=== PATIENT | female | born 2000 | race Caucasian/White ===

== ENCOUNTER 2024-12-08 22:36 | Emergency (ER) | payer OTHER, SELFPAY ==
--- OUTSIDE RECORDS SUMMARY | 2024-11-12 14:09 | XMS_ITS | Encounter Summary ---
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 (accession [id number]), 3617.62 mGy.cm (accession [id number]), 3617.62 mGy.cm (accession [id number]). Please note: The reported value represents the [...] Total DLP (Dose-Length Product): 3617.62 mGy.cm (accession [id number]),3617.62 mGy.cm (accession [id number]), 3617.62 mGy.cm (accession [id number]),3617.62 mGy.cm (accession [id number]). Please note: The reported valuerepresents the total [...] MD on 11/12/2024 3:37 PM Terri Johnson OPHTHALMIC SURGICAL ASSISTANT IMG CT PROCEDURES Final Re sult * [...] Total DLP (Dose-Length Product): 3617.62 mGy.cm (accession [id number]), 3617.62 mGy.cm (accession [id number]), 3617.62 mGy.cm (accession [id number]), 3617.62 mGy.cm (accession [id number]). Please note: The reported value represents the [...] Total DLP (Dose-Length Product): 3617.62 mGy.cm (accession [id number]),3617.62 mGy.cm (accession [id number]), 3617.62 mGy.cm (accession [id number]),3617.62 mGy.cm (accession [id number]). Please note: The reported valuerepresents the total [...] MD on 11/12/2024 3:37 PM Terri Johnson OPHTHALMIC SURGICAL ASSISTANT IMG CT PROCEDURES Final Re sult * [...] Total DLP (Dose-Length Product): 3617.62 mGy.cm (accession [id number]), 3617.62 mGy.cm (accession [id number]), 3617.62 mGy.cm (accession [id number]), 3617.62 mGy.cm (accession [id number]). Please note: The reported value represents the [...] Total DLP (Dose-Length Product): 3617.62 mGy.cm (accession [id number]),3617.62 mGy.cm (accession [id number]), 3617.62 mGy.cm (accession [id number]),3617.62 mGy.cm (accession [id number]). Please note: The reported valuerepresents the total [...] MD on 11/12/2024 3:37 PM Terri Johnson OPHTHALMIC SURGICAL ASSISTANT IMG CT PROCEDURES Final Re sult * CT Angio Head (11/12/2024 3:05 PM EDT) Anatomical Region Laterality Modality [place] Computed Tomogr aphy Impressions 11/12/2024 [...] Total DLP (Dose-Length Product): 3617.62 mGy.cm (accession [id number]), 3617.62 mGy.cm (accession [id number]), 3617.62 mGy.cm (accession [id number]), 3617.62 mGy.cm (accession [id number]). Please note: The reported value represents the [...] Total DLP (Dose-Length Product): 3617.62 mGy.cm (accession [id number]),3617.62 mGy.cm (accession [id number]), 3617.62 mGy.cm (accession [id number]),3617.62 mGy.cm (accession [id number]). Please note: The reported valuerepresents the total [...] MD on 11/12/2024 3:37 PM Terri Johnson OPHTHALMIC SURGICAL ASSISTANT IMG CT PROCEDURES Final Re sult * [...] Hold for add-ons 11/12/2024 5:01 PM EDT [facility] Comment:Auto resulted. Blood Venous blood specimen / Unknown 11/12/2024 2:39 PM EDT 11/12/2024 2:44 PM EDT us Jose L Marin MD LAB BLOOD ORDERABLES Final Result [facility] [address] [place] [address] * Gold Top (11/12/2024 2:39 PM EDT) Extra Hold for add-ons 11/12/2024 5:01 PM EDT [facility] Comment:Auto resulted. Blood Venous blood specimen / Unknown 11/12/2024 2:39 PM EDT 11/12/2024 2:44 PM EDT us Jose L Marin MD LAB BLOOD ORDERABLES Final Result Performing Organization Address City/[facility]/ZIP Co de Phone Number [facility] [address] [place] [address] * Light Green Top (11/12/2024 2:39 PM EDT) Extra Hold for add-ons 11/12/2024 5:01 PM EDT [facility] Comment:Auto resulted. Blood Venous blood specimen / Unknown 11/12/2024 2:39 PM EDT 11/12/2024 2:44 PM EDT us Jose L Marin MD LAB BLOOD ORDERABLES Final Result Performing Organization Address City/[facility]/ZIP Co de Phone Number [facility] [address] [place] [address] * Type and Screen (11/12/2024 2:39 PM [...] ORDERA BLES Final Result Performing Organization Address City/[facility]/ZIP Co de Phone Number BLOOD BANK [address] [place] [address], [place] * TEG Global Hemostasis with Lysis (11/12/2024 2:39 PM EDT) R, Lysis 6.2 4.6 - 9.1 min 11/12/2024 3:53 PM EDT [facility] MA, Rapid, Lysis 61.6 52.0 - 70.0 mm 11/12/2024 3:53 PM EDT [facility] MA, Fibrinogen, Lysis 16.8 15.0 - 32.0 mm 11/12/2024 3:53 PM EDT [facility] LY30 0.9 0.0 - 2.6 % 11/12/2024 3:53 PM EDT [facility] Blood Venous blood specimen / Unknown Venipuncture / Unknown 11/12/2024 2:39 PM EDT 11/12/2024 2:54 PM EDT Jose L Marin MD LAB BLOOD ORDERABLES Final Result [facility] [address] [place] [address] * Test Qualitative Plasma (11/12/2024 2:39 PM EDT) Test Negative Negative 11/12/2024 3:21 PM EDT [facility] Blood Venous blood specimen / Unknown Venipuncture / Unknown 11/12/2024 2:39 PM EDT 11/12/2024 2:43 PM EDT Narrative [facility] - 11/12/2024 3:21 PM EDT Reference Range: Males and non- females: Negative. Jose L Marin MD LAB BLOOD ORDERABLES Final Result [facility] [address] [place] [address] * Ethyl Alcohol Plasma (11/12/2024 2:39 PM EDT) Ethanol Plasma <10 <10 mg/dL 11/12/2024 3:11 PM EDT [facility] Blood Venous blood specimen / Unknown Venipuncture / Unknown 11/12/2024 2:39 PM EDT 11/12/2024 2:[address] [facility] - 11/12/2024 3:11 PM EDT Enzymatic Assay: Performed on Valerie Lino. Jose L Marin MD LAB BLOOD ORDERABLES Final Result Performing Organization Address City/[facility]/[place] [address] * APTT (PTT) (11/12/2024 2:39 PM EDT) aPTT 25 25 - 35 sec 11/12/2024 3:16 PM EDT [facility] Blood Venous blood specimen / Unknown Venipuncture / Unknown 11/12/2024 2:39 PM EDT 11/12/2024 2:43 PM EDT Jose L Marin MD LAB BLOOD ORDERABLES Final Result Performing Organization Address City/[facility]/ZIP Co de Phone Number [facility] [address] [place] [address] * PT-INR (11/12/2024 2:39 PM EDT) Prothrombin Time 13.8 12.0 - 14.3 sec 11/12/2024 3:15 PM EDT [facility] INR 1.1 0.9 - 1.1 11/12/2024 3:15 PM EDT [facility] Blood Venous blood specimen / Unknown Venipuncture / Unknown 11/12/2024 2:39 PM EDT 11/12/2024 2:43 PM EDT Narrative [facility] - 11/12/2024 3:15 PM EDT OPTIMAL INR RANGES FOR PATIENT ON ORAL ANTICOAGULANT THERAPY Prevention of venous thromboembolism INR 2.0 to 3.0 In patients with heart disease: Atrial fibrillation INR 2.0 to 3.0 Valvular heart disease INR 2.0 to 3.0 Tissue heart valves INR 2.0 to 3.0 Mechanical prosthetic valves INR 2.5 to 3.5 Prevention of recurrent [place] INR 2.5 to 3.5 us Jose L Marin MD LAB BLOOD ORDERABLES Final Result [facility] [address] [place] [address] * (ABNORMAL) CBC w/o diff (11/12/2024 2:39 PM EDT) [facility] WBC Count 7.23 3.70 - 10.30 10*3/uL LAB HEMATOLOGY METHOD 11/12/2024 2:46 PM EDT [facility] RBC Count 4.67 3.90 - 5.20 10*6/uL LAB HEMATOLOGY METHOD 11/12/2024 2:46 PM EDT [facility] HGB 14.5 11.2 - 15.7 g/dL LAB HEMATOLOGY METHOD 11/12/2024 2:46 PM EDT [facility] HCT 40.1 34.0 - 45.0 % LAB HEMATOLOGY METHOD 11/12/2024 2:46 PM EDT [facility] Platelet Count 267 155 - 369 10*3/uL LAB HEMATOLOGY METHOD 11/12/2024 2:46 PM EDT [facility] MCV 86 79 - 98 fL LAB HEMATOLOGY METHOD 11/12/2024 2:46 PM EDT [facility] MCH 31.0 26.0 - 32.0 pg LAB HEMATOLOGY METHOD 11/12/2024 2:46 PM EDT [facility] MCHC 36.2(H) 30.7 - 35.5 g/dL LAB HEMATOLOGY METHOD 11/12/2024 2:46 PM EDT [facility] RDW 11.9 11.5 - 14.5 % LAB HEMATOLOGY METHOD 11/12/2024 2:46 PM EDT [facility] MPV 10.3 8.8 - 12.5 fL LAB HEMATOLOGY METHOD 11/12/2024 2:46 PM EDT [facility] nRBC 0.0 <=0.0 per 100 WBCs LAB HEMATOLOGY METHOD 11/12/2024 2:46 PM EDT [facility] Blood Venous blood specimen / Unknown Venipuncture / Unknown 11/12/2024 2:39 PM EDT 11/12/2024 2:43 PM EDT us Jose L Marin MD LAB BLOOD ORDERABLES Final Result [facility] [address] [place] [address] * (ABNORMAL) CMP (11/12/2024 2:39 PM EDT) Glucose, Plasma 110(H) 74 - 99 mg/dL 11/12/2024 3:21 PM EDT [facility] BUN, Plasma 12 7 - 21 mg/dL 11/12/2024 3:21 PM EDT [facility] Creatinine, Plasma 0.80 0.60 - 1.10 mg/dL 11/12/2024 3:21 PM EDT [facility] BUN/Creatinine Ratio 15 11/12/2024 3:21 PM EDT [facility] Sodium, Plasma 138 136 - 145 mmol/L 11/12/2024 3:21 PM EDT [facility] Potassium, Plasma 3.1(L) 3.6 - 4.9 mmol/L 11/12/2024 3:21 PM EDT [facility] Chloride, Plasma 105 97 - 107 mmol/L 11/12/2024 3:21 PM EDT [facility] CO2, Plasma 15(L) 22 - 29 mmol/L 11/12/2024 3:21 PM EDT [facility] Anion Gap 18(H) 6 - 16 mmol/L 11/12/2024 3:21 PM EDT [facility] Total Calcium, Plasma 9.1 8.9 - 10.2 mg/dL 11/12/2024 3:21 PM EDT [facility] Total Protein 6.9 6.3 - 7.9 g/dL 11/12/2024 3:21 PM EDT [facility] Albumin, Plasma 4.2 3.5 - 5.2 g/dL 11/12/2024 3:21 PM EDT [facility] AST, Plasma 24 10 - 35 U/L 11/12/2024 3:21 PM EDT [facility] ALT, Plasma 14 10 - 35 U/L 11/12/2024 3:21 PM EDT [facility] Alkaline Phosphatase, Plasma 59 35 - 104 U/L 11/12/2024 3:21 PM EDT [facility] Total Bilirubin, Plasma 0.2 0.2 - 1.1 mg/dL 11/12/2024 3:21 PM EDT [facility] eGFRcr 105.7 mL/min/1.7 3m*2 11/12/2024 3:21 PM EDT [facility] Comment:Reported eGFRcr in m L/min/1.73m2 is based the CKD-EPI 2020 equation that does not use a race coefficient. Blood Venous blood specimen / Unknown Venipuncture / Unknown 11/12/2024 2:39 PM EDT 11/12/2024 2:43 PM EDT us Jose L Marin MD LAB BLOOD ORDERABLES Final Result [facility] [address] [place] [address] * (ABNORMAL) Trauma shock panel blood gas (11/12/2024 2:39 PM EDT) pH, Venous 7.50(H) 7.32 - 7.43 LAB HEMATOLOGY METHOD 11/12/2024 2:44 PM EDT [facility] Bicarbonate, Calculated, Venous 19(L) 22 - 26 mmol/L LAB HEMATOLOGY METHOD 11/12/2024 2:44 PM EDT [facility] Base Excess, Venous -2.4(L) -2.0 - 3.0 mmol/L LAB HEMATOLOGY METHOD 11/12/2024 2:44 PM EDT [facility] Lactate, Venous, Whole Blood 5.2(H) 0.5 - 2.2 mmol/L LAB HEMATOLOGY METHOD 11/12/2024 2:44 PM EDT [facility] Blood Venous blood specimen / Unknown Venipuncture / Unknown 11/12/2024 2:39 PM EDT 11/12/2024 2:43 PM EDT us Jose L Marin MD LAB BLOOD ORDERABLES Final Result Performing Organization Address City/State/[facility] Co de Phone Number [facility] [address] [place] [address] documented in this encounter Visit Diagnoses Diagnosis [...] at 1540, Until 11/13/24 at 0743, Routine New Bag 11/12/2024 5:33 PM EDT 75 mL/ hr 75 mL/hr meclizine (Antivert) tablet 25 mg 25 mg, Oral, 3 times daily PRN, Starting on 11/14/24 at 0935, Until Mon /11/25 at 1459, Routine, dizziness methocarbamol (Robaxin) tablet 1,000 mg 1,000 mg, Oral, 4 times daily, First dose (after last modification) on 11/13/24 at 1800, Until Discontinued, Routine Given 11/14/2024 9:44 AM EDT 1,000 mg Given 11/13/2024 9:37 PM EDT 1,000 mg Given 11/13/2024 5:00 PM EDT 1,000 mg methocarbamol (Robaxin) tablet 500 mg 500 mg, Oral, 4 times daily PRN, Starting on 11/12/24 at 1513, Until Imbler 11/13/24 at 0743, Routine, muscle spasms Given 11/13/2024 12:56 AM EDT 500 mg Given 11/12/2024 7:51 PM EDT 500 mg methocarbamol (Robaxin) tablet 500 mg 500 mg, Oral, 4 times daily, First dose (after last modification) on Imbler 11/13/24 at 0900, Until Discontinued, Routine Given 11/13/2024 3:00 PM EDT 500 mg Given 11/13/2024 9:02 AM EDT 500 mg metoclopramide (Reglan) injection 10 mg 10 mg, Intravenous, Every 6 hours PRN, Starting on 11/12/24 at 2017, Until Thu11/14/24 at 1459, Routine, nausea, vomiting Given 11/12/2024 8:27 PM EDT 1 0 mg metoclopramide (Reglan) tablet 10 mg 10 mg, Oral, Every 6 hours PRN, Starting on 11/12/24 at 2017, Until Thu11/14/24 at 1459, Routine, nausea, vomiting morphine PF [...] PRN, Starting on 11/13/24 at 1638, Until Thu11/13/24 at 1926, Routine, severe pain Given 11/13/2024 4:57 PM EDT 5 mg oxyCODONE (Roxicodone) immediate release tablet 5 mg 5 mg, Oral, Every 4 hours PRN, Starting on 11/13/24 at 1924, Until Thu11/14/24 at 1459, Routine, moderate pain polyethylene glycol [...] Caceres RN) 0944 (Given - Provider: Jo Quick RN)1400 (Canceled Entry - Provider: Automatic Discharge Provider [...] Routine 1705 (Given - Provider: Franklyn Vazquez, RN) polyethylene glycol (Miralax) packet 17 g 17 g, Oral, Daily, First dose on 11/13/24 at 0900, Until Discontinued, Routine 0902 (Given - Provider: Fartun Goodrich, CARSON) 0945 (Not Given - Provider: Jo Quick [...] Discontinued, Routine 2004 (Given - Provider: Jarvis Caceres RN) sodium chloride 0.9 % flush 10 mL(Linked [...] 1733 (New Bag - Provider: Franklyn Vazquez, CARSON) PRN Medication Order 11/12/2024 11/13/2024 11/14/2024 albuterol [...] Maldonado RN)1440 (Canceled Entry - Provider: Sharron Epstein RN - Comment: Automatically documented as Canceled [...] spasms 1951 (Given - Provider: Padmini Pinzon) 0056 (Given - Provider: Padmini Pinzon) metoclopramide (Reglan) injection 10 mg(Linked Group 2) 10 mg, Intravenous, Every 6 hours PRN, Starting on 11/12/24 at 2017, Until Thu11/14/24 at 1459, Routine, nausea, vomiting 2026 (Given - Provider: Padmini Pinzon) metoclopramide (Reglan) tablet 10 mg(Linked Group 2) 10 mg, Oral, Every 6 hours PRN, Starting on 11/12/24 at 2017, Until Thu11/14/24 at 1459, Routine, nausea, vomiting 2026 (See Alternative - Provider: Padmini Pinzon) ondansetron (Zofran) 4 MG/5ML solution 4 mg(Linked Group 3) 4 mg, Oral, Every 6 hours PRN, Starting on 11/12/24 at 1513, Until Thu11/14/24 at 1459, Routine, nausea, vomiting 1705 (See Alternative - Provider: Franklyn Vazquez, CARSON) 0750 (See Alternative - Provider: Fartun Goodrich RN)2138 (See Alternative - Provider: Jarvis Caceres RN) 0959 (See Alternative - Provider: Jo Quick RN) ondansetron (Zofran) injection 4 mg(Linked Group 3) 4 mg, Intravenous, Every 6 hours PRN, Starting on 11/12/24 at 1513, Until 11/14/24 at 1459, Routine, vomiting, nausea 1705 (Given - Provider: Franklyn Vazquez RN) 0750 (Given - Provider: Fartun Goodrich, CARSON)2138 (See Alternative - Provider: Jarvis Caceres RN) 0959 (See Alternative - Provider: Jo Quick RN) ondansetron ODT (Zofran-ODT) disintegrating tablet 4 mg(Linked Group 3) 4 mg, Oral, Every 6 hours PRN, Starting on 11/12/24 at 1513, Until 11/14/24 at 1459, Routine, nausea, vomiting 1705 (See Alternative - Provider: Franklyn Vazquez RN) 0750 (See Alternative - Provider: Fartun Goodrich, CARSON)2138 (Given - Provider: Jarvis Caceres RN) 0959 (Given - Provider: Jo Quick RN) oxyCODONE (Roxicodone) immediate release tablet 10 mg(Linked [...] Until 11/14/24 at 1459, Routine, moderate pain sodium chloride [...] Until 11/14/24 at 1459, Routine, vomiting, nausea Or ondansetron (Zofran) 4 MG/5ML solution 4 mgJump to med 4 mg, Oral, Every 6 hours PRN, Starting on 11/12/24 at 1513, Until 11/14/24 at 1459, Routine, nausea, vomiting Group 4: oxyCODONE (Roxicodone) immediate release tablet 5 mgJump to med 5 mg, Oral, Every 4 hours PRN, Starting on 11/13/24 at 1924, Until 11/14/24 at 1459, Routine, moderate pain Or oxyCODONE (Roxicodone) immediate release tablet 10 mgJump to med 10 mg, Oral, Every 6 hours PRN, Starting on 11/13/24 at 1924, Until 11/14/24 at 1459, Routine, severe pain documented in this encounter Additional Health Concerns Assessment Noted Time PHQ-9 Depression Total Score: 10 024 9:54 AM EDT A fall risk assessment has been complete d for the patient 01/14/2024 10:05 AM EDT A Body Mass Index follow-up plan has been documented for the patient 11/14/2024 11:24 AM EDT documented as of this encounter Care Teams Feed Mill Manager Relationship Specialty Start Date End Date Pcp, Melinda [address] [place] [address] PCP - General Family Medicine 11/12/24 Nirmala Johnston APRN [address] [place] [address] 11/12/24 documented as of this encounter
[2024-12-08 22:37] VITALS: BP 119/70; PULSE 66; RESP 16; TEMP 36.5; O2SAT 100; BMI 25.4
[2024-12-08 22:45] VITALS: BP 114/70; PULSE 66; RESP 16; TEMP 36.5; O2SAT 100
[2024-12-08 22:46] VITALS: PULSE 66
--- NOTE | 2024-12-08 23:00 | XR_ITS ---
PROCEDURE INFORMATION: Exam: XR Chest Exam date and time: 12/08/2024 11:30 PM Age: 24 years old Clinical indication: Pain; Chest pressure; Additional info: Cp TECHNIQUE: Imaging protocol: Radiologic exam of the chest. Views: 1 view. COMPARISON: No relevant prior studies available. FINDINGS: Lungs: No focal consolidation. Pleural spaces: No pneumothorax. Heart/Mediastinum: Unremarkable cardiomediastinal silhouette. Bones/joints: No acute osseous findings. IMPRESSION: No focal consolidation.
--- NOTE | 2024-12-08 23:00 | CT_ITS ---
PROCEDURE INFORMATION: Exam: CT Head Without Contrast Exam date and time: 12/08/2024 11:35 PM Age: 24 years old Clinical indication: Pain; Headache; Additional info: MONTERROSO on anticoagulation TECHNIQUE: Imaging protocol: Computed tomography of the head without contrast. Radiation optimization: All CT scans at this facility use at least one of these dose optimization techniques: automated exposure control; mA and/or kV adjustment per patient size (includes targeted exams where dose is matched to clinical indication); or iterative reconstruction. COMPARISON: No relevant prior studies available. FINDINGS: Brain: No hemorrhage. No mass effect. Cerebral ventricles: No ventriculomegaly. Paranasal sinuses: No fluid levels. Mastoid air cells: Visualized mastoid air cells are well aerated. Bones: No acute fracture. Soft tissues: The visualized soft tissue is grossly unremarkable. IMPRESSION: No evidence of acute intracranial hemorrhage.
[2024-12-08 23:07] LABS: Hematocrit 43.2 % (37.0-47.0); Hemoglobin 15.2 g/dL (12.2-16.2); Immature Granulocytes % 0.2 %; Mean Corpuscular HGB Conc 35.2 g/dL (31.8-35.4); Mean Corpuscular Hemoglobin 30.8 pg (27.0-31.2); Mean Corpuscular Volume 87.4 fl (81-99); Nucleated Red Blood Cells % 0 %; Platelet Count 276 K/mm3 (142-424); Red Blood Count 4.94 M/mm3 (4.20-5.40); Red Cell Distribution Width-SD 38.5 fL; White Blood Count 9.9 K/mm3 (4.8-10.8)
[2024-12-08 23:14] LABS: Alanine Aminotransferase 18 U/L (12-78); Albumin Level 4.7 g/dl (3.5-5.0); Albumin/Globulin Ratio 1.7 (1.1-1.8); Alkaline Phosphatase 47 U/L (38-126); Anion Gap 16.2 mEq/L (5-15); Aspartate Amino Transferase 30 U/L (14-36); Bilirubin,Total 0.4 mg/dl (0.2-1.3); Blood Urea Nitrogen 12 mg/dl (7-17); Calcium 9.7 mg/dl (8.4-10.2); Carbon Dioxide 23 mmol/L (22.0-30.0); Chloride 104 mmol/L (98-107); Creatinine Clearance Estimated 100 mL/min (50-200); Creatinine,Serum 0.80 mg/dl (0.52-1.04); Estimated Glomerular Filt Rate 87 ml/min (>60); GFR (African American) 106 ML/MIN (>60); Globulin 2.8 g/dL (1.3-3.2); Glucose 76 mg/dl (74-100); Potassium 3.2 mmoL/L (3.5-5.1); Sodium 140 mmol/L (136-145); Total Protein,Serum 7.5 g/dl (6.3-8.2)
[2024-12-08 23:18] LABS: D-Dimer 0.31 ug/mL (0.0-0.5)
[2024-12-08 23:22] LABS: HCG Qualitative, Serum Negative (Negative)
[2024-12-08] MEDS: ACETAMINOPHEN 1,000MG/100ML VIAL 1000 MG IV (23:22)
[2024-12-08] MEDS: LACTATED RINGERS 1000ML 1,000 ML 999 ML IV (23:23)
[2024-12-08] MEDS: PROCHLORPERAZINE 10MG/2ML VIAL 5 MG IV (23:23)
[2024-12-08 23:27] LABS: Troponin I < 0.01 ng/ml (0.00-0.034)
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
[2024-12-08] MEDS: POTASSIUM CHLORIDE 20MEQ TAB 40 MEQ PO (23:45)
[2024-12-09 00:06] LABS: Magnesium 1.5 mg/dl (1.6-2.3)
[2024-12-09] MEDS: MAGNESIUM SULFATE IN WATER 2 GM/50 ML PIGGYBACK IV (00:31)
--- OUTSIDE RECORDS SUMMARY | 2024-12-09 01:00 | XMS_ITS | Encounter Summary ---
Author Organization [facility] Address [address] [place] [address] Care Team Providers Care Supervisor Stage Carpentry Name Role Phone Swathi Todd APRN Primary Care Provider [phone] Encounter Details Date Type Department Care Team (Late st Contact Info) Description 08/16/2024 Results Follow-Up [facility] [address] [place] [address] Leonidas Gomez MD [address] [place] [address] Social History Tobacco Use Types Packs/Day Years Used Date Smoking Tobacco: Never Passive Smoke Exposure: Never Smokeless Tobacco: Never Alcohol Use Standard Drinks/Week Comments Yes 5 (1 standard drink = 0.6 oz pur e alcohol) Abuse Screen Answer Date Recorded Feels Unsafe at Home or Work/School no 03/29/2023 Feels Threatened by Someone no 03/07 Does Anyone Try to Keep You From Having Contact with Others or Doing Things Outside Your Home? no 03/29/2023 Physical Signs of Abuse Present no 03/29/2023 PHQ-2 Answer Date Recorded Retired PHQ-9: Brief Depression Severity Measure Score 11 07/07/2023 Comments No Sex and Gender Information Value Date Recorded Sex Assigned at Not on file Legal Sex Female 7:25 PM EST Gender Identity Not on file Sexual Orientation Not on file documented as of this encounter Plan of Treatment Not on file documented as of this encounter Visit Diagnoses Not on filedocumented in this encounter Additional Health Concerns Assessment Noted Time PHQ-2 Depression Total Score: 3 07/07/19 24 4:00 PM EDT documented as of this encounter Care Teams Supervisor Stage Carpentry Relationship Specialty Start Date End Date Swathi Todd APRN [address] [place] [address] PCP - General Nurse Practitioner 07/21/24 documented as of this encounter
--- OUTSIDE RECORDS SUMMARY | 2024-12-09 01:00 | XMS_ITS | Encounter Summary ---
Author Organization Healthcare Address [address] [place] [address] Care Team Providers Care Zoology Technical Officer Name Role Phone Pcp, No Primary Care Provider Unavailabl e Nirmala Johnston LAB COORDINATOR Unavailable [phone] Encounter Details Date Type Department Care Team (Latest Contact Info) Description 11/13/2024 Travel Social History Tobacco Use Types Packs/Day Years Used Date Smoking Tobacco: Some Days Cigarettes Smokeless Tobacco: Never Alcohol Use Standard Drinks/Week Comments Never 0 [...] any time in the past 12 m [facility], were you homeless or living in a intermediate (including now)? No 11/14/2024 Utilities Answer Date [...] on file documented as of this encounter Functional Status * AUDIT-C Score Answer Date of Assessment Author 0 11/13/2024 3:36 AM Sudhir Kunz L * Question Answer Date of Assessment Author Q1: How often do you have a drink containing alcohol? Never 11/13/2024 3:36 AM Padmini Kunz Q2: How many drinks containing alcohol do you have on a typical day when you are drinking? Patient does not drink 11/13/2024 3:36 AM Padmini Kunz Q3: How often do you have six or more drinks on one occasion? Never 11/13/2024 3:36 AM EDT Padmini Pinzon * Calculated C-SSRS Risk Score (Lifetime/Recent) Answer Date of Assessment Author No Risk Indicated 11/13/2024 8:00 PM EDT Jarvis Donald RN * Question Answer Date of Assessment Author 1. Wish to be (Past 1 Month) No 025 8:00 PM EDT Jarvis Caceres RN 2. Non-Specific Active Suici segundo Thoughts (Past 1 Month) No 11/13/2024 8:00 PM EDT Jarad Caceres RN 6. Suicidal Behavior (Lifetime) No 8:00 PM EDT Jarvis Caceres RN documented as of this encounter Plan of [...] documented as of this encounter Care Teams Zoology Technical Officer Relationship Specialty Start Date End Date Pcp, No [address] [place] [address] PCP - General Family Medicine 11/12/24 Nirmala Johnston APRN [address] [place] [address] 11/12/24 documented as of this encounter
--- OUTSIDE RECORDS SUMMARY | 2024-12-09 01:00 | XMS_ITS | Encounter Summary ---
Author Organization Healthcare Address [address] [place] [address] Care Team Providers Care Fire Alarm Mechanic Name Role Phone Pcp, No Primary Care Provider Unavailabl e Nirmala Johnston NAVAL MARINE ENGINEER Unavailable [phone] Encounter Details Date Type Department Care Team (Latest Contact Info) Description 11/12/2024 Travel Social History Tobacco Use Types Packs/Day Years Used Date Smoking Tobacco: Never Assessed PHQ-2 Answer Date Recorded Patient Health Questionnaire-2 Score 6 12/17/2023 PHQ-9 Answer Date Recorded Patient Health Questionnaire-9 Score 10 12/17/2023 AUDIT-C Answer Date Recorded Q1: How often do you have a drink containing alcohol? Never 11/13/2024 Q2: How many drinks containi ng alcohol do you have on a typical day when you are drinking? Patient does not drink Q3: How often do you have si x or more drinks on one occasion? Never 11/13/2024 Comments No Sex and Gender Information Value Date Recorded Sex Assigned at Not on file Legal Sex Female 3:09 PM EST Gender Identity Female 12/02/2023 6:42 AM EDT Sexual Orientation Not on file documented as of this encounter Functional Status * Calculated C-SSRS Risk Score (Lifetime/Recent) Answer Date of Assessment Author No Risk Indicated 11/12/2024 8:00 PM EDT Kelly Pinzon * Question Answer Date of Assessment Author 1. Wish to be (Past 1 Month) No 025 8:00 PM EDT Padmini Pinzon 2. Non-Specific Active Suici segundo Thoughts (Past 1 Month) No 11/12/2024 8:00 PM EDT Padmini Pinzon 6. Suicidal Behavior (Lifetime) No 8:00 PM EDT Padmini Pinzon documented as of this encounter Plan of Treatment Not on file documented as of this encounter Visit Diagnoses Not on filedocumented in this encounter Additional Health Concerns Assessment Noted Time PHQ-9 Depression Total Score: 024 9:54 AM EDT A fall risk assessment has been complete d for the patient 01/14/2024 10:05 AM EDT A Body Mass Index follow-up plan has been documented for the patient 11/14/2024 11:24 AM EDT documented as of this encounter Care Teams Fire Alarm Mechanic Relationship Specialty Start Date End Date Pcp, No [address] [place] [address] PCP - General Family Medicine 11/12/24 Nirmala Johnston APRN [address] [place] [address] 11/12/24 documented as of this encounter
--- OUTSIDE RECORDS SUMMARY | 2024-12-09 01:00 | XMS_ITS | Clinical Summary ---
Author Organization [facility] Address [address] [place] [address] Care Team Providers Care Engine Specialist Name Role Phone Swathi Todd APRN Primary Care Provider [phone] Allergies Active Allergy Reactions Criticality Noted Date Comments Doxycycline Nausea And Vomiting 03/29/2023 Kiwi Extract Swelling High 01/15/2022 Lidocaine Palpitations Low 09/22/2023 Increased heart rate/BP via IV; intramuscular inj OK Medications * This document contains information received from the source organization and may not represent a complete record from that organization. colestipol (COLESTID) 1 g tablet Take 1 tablet by mouth 2 (Two) Times a Day Before Meals. Active ondansetron ODT (ZOFRAN-ODT) 4 MG disintegrating tablet TAKE 1 TABLET BY MOUTH NEEDED, ONCE DAILY FOR NAUSEA, 30 DAYS Active Levonorgestrel (MIRENA) 20 MCG/DAY intrauterine device IUD To be inserted one time by prescriber. Route intrauterine . Active hydrOXYzine (ATARAX) 25 MG tabletIndications:A nxiety Take 1 tablet by mouth 3 (Three) Times a Day As Needed for Anxiety. 60 tablet 4 Active albuterol sulfate HFA 108 (90 Base) MCG/ACT inhaler Inhale 2 puffs. 4 Active sertraline (ZOLOFT) 25 MG tablet Take 1 tablet by mouth Daily. 4 Active levonorgestrel-ethi nyl estradiol (AVIANE,ALESSE,LESS LIBRADO) 0.1-20 MG-MCG per tablet Take 1 tablet by mouth Daily. 28 tablet 12 5 08/16/19 26 Active Active Problems Problem Noted Date Diagnosed Date Encounter for preconception consultation 024 Immunizations Immunization Administration Dates Next Due COVID-19 (MODERNA) 1st,2nd,3 rd Dose Monovalent 05/02/2020,04/04/2020 DTaP 11/16/2003, 1,06/05/2000,03/18,01/17/2000 FluMist 2-49yrs (Nasal) 12/12/2013,12/31/2012, Fluzone (or Fluarix & Flulav al for VFC) >6mos 01/15/2022 Hep A, 2 Dose 07/24/2008,12/23/2007 Hep B / HiB 12/04/2000 Hepatitis B Adult/Adolescent IM 12/04/2000,01/16,1999 Hib (PRP-OMP) 03/18/2000,01/17/2000 IPV 11/16/2003, 1,03/18/2000,01/16 MMR 11/16/2003,03/08/2001 Meningococcal B,(Bexsero) 10/31/2017,09/26/2017 Meningococcal Conjugate 09/26/2017 PEDS-Pneumococcal Conjugate (PCV7) 03/08/2001, Tdap 01/15/2022,01/13/2011 Varicella 12/04/2000 Family History Medical History Relation Name Comments No Known Problems Brother 1 No Known Problems Brother 2 No Known Problems Brother 3 No Known Problems Father No Known Problems Mother No Known Problems Sister 1 No Known Problems Sister 2 No Known Problems Sister 3 Breast cancer Neg Hx Colon cancer Neg Hx Ovarian cancer Neg Hx Uterine cancer Neg Hx Relation Name Status Comments Brother 1 Alive Brother 2 Alive Brother 3 Alive Father Alive Mother Alive Sister 1 Alive Sister 2 Alive Sister 3 Alive Social History Tobacco Use Types Packs/Day Years Used Date Smoking Tobacco: Never Passive Smoke Exposure: Never Smokeless Tobacco: Never Tobacco Cessation:Counseling Given: Not Answered Alcohol Use Standard Drinks/Week Comments Yes 5 [...] on file Sexual Orientation Not on file Last Filed Vital Signs Vital Sign Reading Time Taken Comments Blood Pressure 104/70 08/15/2024 1:26 PM EDT Pulse 74 08/06/2023 2:32 PM EDT Temperature 36.8 C (98.2 F) 06/03/2023 10:01 AM EST Respiratory Rate 18 12/21/2023 1:08 PM EDT Oxygen Saturation 98% 06/03/2023 10:01 AM EST ra Inhaled Oxygen Concentration - - Weight 55.3 kg (122 lb) 08/15/2024 1:26 PM EDT Height 152.4 cm (5') 08/15/2024 1:26 PM EDT Body Mass Index 23.83 08/15/2024 1:26 PM EDT Plan of Treatment Health Maintenance Due Date Last Done Comments HPV VACCINES (1 - 3-dose series) 11/14/2014 ANNUAL PHYSICAL 05/28/2023 HEPATITIS C SCREENING 05/28/2023 COVID-19 Vaccine ( season) 2023 05/02/2020, 04/04/2020 INFLUENZA VACCINE 01/04/2025 01/15/2022, , 12/31/2012, Additional history exists Annual Gynecologic Pelvic and Breast Exam 08/16/2025 08/15/2024 PAP SMEAR 08/16/2027 08/15/2024 TDAP/TD VACCINES (3 - Td or Tdap) 01/16/2032 01/15/2022, 01/13/2011 Pneumococcal Vaccine 0-49 Aged Out 03/08/2001, 05/2000 No longer eligible based on patient's age to complete this topic CHLAMYDIA SCREENING Discontinued 08/15/2024 Procedures Procedure Name Priority Date/Time Associated Diagnosis Comments LIQUID-BASED PAP SMEAR WITH HPV GENOTYPING IF ASCUS, [facility] ([facility]) Routine 08/15/2024 2:16 PM EDT Pap test, as part of routine gynecological examination from Last 3 Months or Most Recently Relevant to Health Maintenance Results * LIQUID-BASED PAP SMEAR WITH HPV GENOTYPING IF ASCUS (SHEA,COR,MAD) (08/15/2024 2:16 PM EDT) Reference Lab Report [facility] [address] [place] [address] or [phone] Franko Arevalo M.D., Smearer PATIENT NAME LABORATORY NO. [id number] GONZALEZ [id number] AGE SEX SSN CLIENT REF # [id number] 24 2000 F [id number] [facility] LAMIN ALFARO REQUESTING M.D. [place] [address] SANDER AMBROSIO DATE COLLECTED DATE RECEIVED DATE REPORTED 08/15/2024 08/15/2024 08/16/2024 ThinPrep Pap with Hologic Genius Imaging DIAGNOSIS: Negative for intraepithelial lesion or malignancy Multiple factors can influence accuracy of Pap tests; therefore, screening at regular intervals is necessary for early cancer detection. COMMENT: Benign cellular changes associated with reactive/reparativ e changes are present. Professional interpretation rendered by Franko Arevalo M.D., F.C.A.P. at [facility], [place], [address] [place] [address]. SPECIMEN ADEQUACY: SATISFACTORY FOR EVALUATION Transformation zone is present. SOURCE OF SPECIMEN: CERVICAL SLIDES: 1 CLINICAL HISTORY: Pap test, as part of routine gynecological examination IUD check up Screening for STD (sexually transmitted disease) Chlamydia / Gonorrhea CHLAMYDIA TRACHOMATIS: Negative NEISSERIA GONORRHOEAE: Negative The Aptima Combo 2 assay is a target amplification nucleic acid probe test that utilizes target capture for the in vitro qualitative detection and differentiation of ribosomal RNA from Chlamydia trachomatis and Neisseria gonorrhoeae to aid in the diagnosis of chlamydial and gonococcal disease using the [place] system. VICE PRESIDENT RESIDENTIAL SOLAR SALES: ANIBAL CHRISTINE (ASCP) REVIEWED, DIAGNOSED AND ELECTRONICALLY SIGNED BY: Franko Arevalo M.D., F.C.A.P. CPT CODES: [id number], [id number], [id number], [id number] 08/16/2024 2:04 PM EDT [facility] ThinPrep Vial Cervix uteri structure / Unknown Collection / Unknown 08/15/2024 2:16 PM EDT 08/15/2024 2:16 PM EDT Sander Ambrosio MD PATHOLOGY/CYTOLOGY ORDER FRANSISCO Final Result [facility]
[address] [place] [address], from Last 3 Months or Most Recently Relevant to Health Maintenance Insurance [facility] [employer] [facility] PPO Member Subscriber Plan / Payer (Ef fective 2022-Present) Name:Cierra Gonzalez Relation to Subscriber:Self Name:EmigdioniloCierra Esteves Payer ID:[id number] (NAIC) Type:Not on file Address: [facility] [id number] [place] [id number] [facility] [employer] [facility] PPO Care Teams Engine Specialist Relationship Specialty Start Date End Date Swathi Todd APRN [address] [place] [address] PCP - General Nurse Practitioner 07/21/24
--- OUTSIDE RECORDS SUMMARY | 2024-12-09 01:01 | XMS_ITS | Clinical Summary ---
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 represents the [...] Total DLP (Dose-Length Product): 3617.62 mGy.cm (accession [id number]),3617.62 mGy.cm (accession [id number]), 3617.62 mGy.cm (accession [id number]),3617.62 mGy.cm (accession [id number]). Please note: The reported valuerepresents the total [...] Jones MD on 11/12/2024 3:37 PM Terri Gu LITIGATION DOCKET MANAGER IMG CT PROCEDURES Final Re sult * CT Face wo IV Contrast (11/12/2024 [...] Total DLP (Dose-Length Product): 3617.62 mGy.cm (accession [id number]), 3617.62 mGy.cm (accession [id number]), 3617.62 mGy.cm (accession [id number]), 3617.62 mGy.cm (accession [id number]). Please note: The reported value represents the [...] Total DLP (Dose-Length Product): 3617.62 mGy.cm (accession [id number]),3617.62 mGy.cm (accession [id number]), 3617.62 mGy.cm (accession [id number]),3617.62 mGy.cm (accession [id number]). Please note: The reported valuerepresents the total [...] Jones MD on 11/12/2024 3:37 PM Terri Gu APRN IMG CT PROCEDURES Final Re sult [...] Total DLP (Dose-Length Product): 3617.62 mGy.cm (accession [id number]), 3617.62 mGy.cm (accession [id number]), 3617.62 mGy.cm (accession [id number]), 3617.62 mGy.cm (accession [id number]). Please note: The reported value represents the [...] Total DLP (Dose-Length Product): 3617.62 mGy.cm (accession [id number]),3617.62 mGy.cm (accession [id number]), 3617.62 mGy.cm (accession [id number]),3617.62 mGy.cm (accession [id number]). Please note: The reported valuerepresents the total [...] Jones MD on 11/12/2024 3:37 PM Terri Gu LITIGATION DOCKET MANAGER IMG CT PROCEDURES Final Re sult * CT Angio Head (11/12/2024 3:05 PM EDT) Anatomical Region Laterality Modality [place] Computed Tomogr aphy Impressions 11/12/2024 [...] Total DLP (Dose-Length Product): 3617.62 mGy.cm (accession [id number]), 3617.62 mGy.cm (accession [id number]), 3617.62 mGy.cm (accession [id number]), 3617.62 mGy.cm (accession [id number]). Please note: The reported value represents the [...] Total DLP (Dose-Length Product): 3617.62 mGy.cm (accession [id number]),3617.62 mGy.cm (accession [id number]), 3617.62 mGy.cm (accession [id number]),3617.62 mGy.cm (accession [id number]). Please note: The reported valuerepresents the total [...] Jones MD on 11/12/2024 3:37 PM Terri Gu LITIGATION DOCKET MANAGER IMG CT PROCEDURES Final Re sult * [...] Jones MD on 11/12/2024 2:53 PM us Mac Marin MD IMG XR PROCEDURES Final Re [...] Elias Jones MD on 11/12/2024 2:53 PM Result [facility] Mac Marin MD IMG XR PROCEDURES Final Re sult * (ABNORMAL) Trauma shock panel blood gas (11/12/2024 2:39 PM EDT) pH, Venous 7.50(H) 7.32 - 7.43 LAB HEMATOLOGY METHOD 11/12/2024 2:44 PM EDT [facility] Bicarbonate, Calculated, Venous 19(L) 22 - 26 mmol/L LAB HEMATOLOGY METHOD 11/12/2024 2:44 PM EDT [facility] Base Excess, Venous -2.4(L) -2.0 - 3.0 mmol/L LAB HEMATOLOGY METHOD 11/12/2024 2:44 PM EDT [facility] Lactate, Venous, Whole Blood 5.2(H) 0.5 - 2.2 mmol/L LAB HEMATOLOGY METHOD 11/12/2024 2:44 PM EDT [facility] Blood Venous blood specimen / Unknown Venipuncture / Unknown 11/12/2024 2:39 PM EDT 11/12/2024 2:43 PM EDT Result [facility] Mac Marin MD LAB BLOOD ORDERABLES Final Result [facility] [address] [place] [address] * [facility] (11/12/2024 2:39 PM EDT) Only the most recent of2 resultswithin the time period is included. Pathologist [facility] Extra Hold for add-ons 11/12/2024 5:01 PM EDT [facility] Comment:Auto resulted. Blood Venous blood specimen / Unknown 11/12/2024 2:39 PM EDT 11/12/2024 2:44 PM EDT us Mac Marin MD LAB BLOOD ORDERABLES Final Result Performing Organization Address City/[facility]/ZIP Co de Phone Number [facility] [address] [place] [address] * Light Green Top (11/12/2024 2:39 PM EDT) [facility] Extra Hold for add-ons 11/12/2024 5:01 PM EDT [facility] Comment:Auto resulted. Blood Venous blood specimen / Unknown 11/12/2024 2:39 PM EDT 11/12/2024 2:44 PM EDT Mac Marin MD LAB BLOOD ORDERABLES Final Result Performing Organization Address [facility] Co de Phone Number [facility] [address] [place] [address] * Ethyl Alcohol Plasma (11/12/2024 2:39 PM EDT) [facility] Ethanol Plasma <10 <10 mg/dL 11/12/2024 3:11 PM EDT [facility] Blood Venous blood specimen / Unknown Venipuncture / Unknown 11/12/2024 2:39 PM EDT 11/12/2024 2:43 PM EDT Narrative [facility] - 11/12/2024 3:11 PM EDT Enzymatic Assay: Performed on Valerie Lino. Mac Marin MD LAB BLOOD ORDERABLES Final Result Performing Organization Address City/[facility]/ZIP Co de Phone Number [facility] [address] [place] [address] * TEG Global Hemostasis with Lysis (11/12/2024 2:39 PM EDT) Pathologist [facility] R, Lysis 6.2 4.6 - 9.1 min 11/12/2024 3:53 PM EDT [facility] MA, Rapid, Lysis 61.6 52.0 - 70.0 mm 11/12/2024 3:53 PM EDT [facility] MA, Fibrinogen, Lysis 16.8 15.0 - 32.0 mm 11/12/2024 3:53 PM EDT [facility] LY30 0.9 0.0 - 2.6 % 11/12/2024 3:53 PM EDT [facility] Blood Venous blood specimen / Unknown Venipuncture / Unknown 11/12/2024 2:39 PM EDT 11/12/2024 2:54 PM EDT Mac Marin MD LAB BLOOD ORDERABLES Final Result Performing Organization Address City/[facility]/ZIP Co de Phone Number [facility] [address] [place] [address] * APTT (PTT) (11/12/2024 2:39 PM EDT) aPTT 25 25 - 35 sec 11/12/2024 3:16 PM EDT [facility] Blood Venous blood specimen / Unknown Venipuncture / Unknown 11/12/2024 2:39 PM EDT 11/12/2024 2:43 PM EDT Mac Marin MD LAB BLOOD ORDERABLES Final Result Performing Organization Address City/[facility] Co de Phone Number [facility] [address] [place] [address] * PT-INR (11/12/2024 2:39 PM EDT) Prothrombin Time 13.8 12.0 - 14.3 sec 11/12/2024 3:15 PM EDT [facility] INR 1.1 0.9 - 1.1 11/12/2024 3:15 PM EDT [facility] Blood Venous blood specimen / Unknown Venipuncture / Unknown 11/12/2024 2:39 PM EDT 11/12/2024 2:43 PM EDT Narrative [facility] - 11/12/2024 3:15 PM EDT OPTIMAL INR RANGES FOR PATIENT ON ORAL ANTICOAGULANT THERAPY Prevention of venous thromboembolism INR 2.0 to 3.0 In patients with heart disease: Atrial fibrillation INR 2.0 to 3.0 Valvular heart disease INR 2.0 to 3.0 Tissue heart valves INR 2.0 to 3.0 Mechanical prosthetic valves INR 2.5 to 3.5 Prevention of recurrent IL INR 2.5 to 3.5 us Mac Marin MD LAB BLOOD ORDERABLES Final Result [facility] [address] [place] [address] * (ABNORMAL) CBC w/o diff (11/12/2024 2:39 PM EDT) WBC Count 7.23 3.70 - 10.30 10*3/uL LAB HEMATOLOGY METHOD 11/12/2024 2:46 PM EDT [facility] RBC Count 4.67 3.90 - 5.20 10*6/uL LAB HEMATOLOGY METHOD 11/12/2024 2:46 PM EDT [facility] HGB 14.5 11.2 - 15.7 g/dL LAB HEMATOLOGY METHOD 11/12/2024 2:46 PM EDT [facility] HCT 40.1 34.0 - 45.0 % LAB HEMATOLOGY METHOD 11/12/2024 2:46 PM EDT [facility] Platelet Count 267 155 - 369 10*3/uL LAB HEMATOLOGY METHOD 11/12/2024 2:46 PM EDT [facility] MCV 86 79 - 98 fL LAB HEMATOLOGY METHOD 11/12/2024 2:46 PM EDT [facility] MCH 31.0 26.0 - 32.0 pg LAB HEMATOLOGY METHOD 11/12/2024 2:46 PM EDT [facility] MCHC 36.2(H) 30.7 - 35.5 g/dL LAB HEMATOLOGY METHOD 11/12/2024 2:46 PM EDT [facility] RDW 11.9 11.5 - 14.5 % LAB HEMATOLOGY METHOD 11/12/2024 2:46 PM EDT [facility] MPV 10.3 8.8 - 12.5 fL LAB HEMATOLOGY METHOD 11/12/2024 2:46 PM EDT [facility] nRBC 0.0 <=0.0 per 100 WBCs LAB HEMATOLOGY METHOD 11/12/2024 2:46 PM EDT [facility] Blood Venous blood specimen / Unknown Venipuncture / Unknown 11/12/2024 2:39 PM EDT 11/12/2024 2:43 PM EDT Mac Marin MD LAB BLOOD ORDERABLES Final Result Performing Organization Address [facility] Co de Phone Number [facility] [address] [place] [address] * Type and Screen (11/12/2024 2:39 PM EDT) ABO/Rh A Positive 11/12/2024 2:11 PM EDT BLOOD BANK Antibody Screen Negative 11/12/2024 2:11 PM EDT [facility]LO[facility] Specimen Expiration 2024 23:59 11/12/2024 2:11 PM EDT [facility] Blood Venous blood specimen / Unknown Venipuncture / Unknown 11/12/2024 2:39 PM EDT 11/12/2024 2:49 PM EDT Mac Marin MD LAB BLOOD BANK TEST ORDERA BLES Final Result Performing Organization Address [facility] de Phone Number BLOOD BANK [address] [place] [address] * Test Qualitative Plasma (11/12/2024 2:39 PM EDT) Pathologist [facility] Test Negative Negative 11/12/2024 3:21 PM EDT [facility] Blood Venous blood specimen / Unknown Venipuncture / Unknown 11/12/2024 2:39 PM EDT 11/12/2024 2:43 PM EDT Narrative [facility] - 11/12/2024 3:21 PM EDT Reference Range: Males and non- females: Negative. Mac Marin MD LAB BLOOD ORDERABLES Final Result Performing Organization Address [facility] Co de Phone Number [facility] [address] [place] [address] * (ABNORMAL) CMP (11/12/2024 2:39 PM EDT) Glucose, Plasma 110(H) 74 - 99 mg/dL 11/12/2024 3:21 PM EDT [facility] BUN, Plasma 12 7 - 21 mg/dL 11/12/2024 3:21 PM EDT [facility] Creatinine, Plasma 0.80 0.60 - 1.10 mg/dL 11/12/2024 3:21 PM EDT [facility] BUN/Creatinine Ratio 15 11/12/2024 3:21 PM EDT [facility] Sodium, Plasma 138 136 - 145 mmol/L 11/12/2024 3:21 PM EDT [facility] Potassium, Plasma 3.1(L) 3.6 - 4.9 mmol/L 11/12/2024 3:21 PM EDT [facility] Chloride, Plasma 105 97 - 107 mmol/L 11/12/2024 3:21 PM EDT [facility] CO2, Plasma 15(L) 22 - 29 mmol/L 11/12/2024 3:21 PM EDT [facility] Anion Gap 18(H) 6 - 16 mmol/L 11/12/2024 3:21 PM EDT [facility] Total Calcium, Plasma 9.1 8.9 - 10.2 mg/dL 11/12/2024 3:21 PM EDT [facility] Total Protein 6.9 6.3 - 7.9 g/dL 11/12/2024 3:21 PM EDT [facility] Albumin, Plasma 4.2 3.5 - 5.2 g/dL 11/12/2024 3:21 PM EDT [facility] AST, Plasma 24 10 - 35 U/L 11/12/2024 3:21 PM EDT [facility] ALT, Plasma 14 10 - 35 U/L 11/12/2024 3:21 PM EDT [facility] Alkaline Phosphatase, Plasma 59 35 - 104 U/L 11/12/2024 3:21 PM EDT [facility] Total Bilirubin, Plasma 0.2 0.2 - 1.1 mg/dL 11/12/2024 3:21 PM EDT [facility] eGFRcr 105.7 mL/min/1.7 3m*2 11/12/2024 3:21 PM EDT [facility] Comment:Reported eGFRcr in m L/min/1.73m2 is based the CKD-EPI 2020 equation that does not use a race coefficient. Blood Venous blood specimen / Unknown Venipuncture / Unknown 11/12/2024 2:39 PM EDT 11/12/2024 2:43 PM EDT Mac Marin MD LAB BLOOD ORDERABLES Final Result [facility] [address] [place] [address] from Last 3 Months Insurance ANTHEM ANTHEM [address] [id number] UNDERWRITERS [facility] [employer] Advance Directives * Full Code (Latest Code Status on File) Date Activated Date Inactivated Comments 11/12/2024 3:37 PM 11/14/2024 3:09 PM Question Answer Comments I have reviewed the capacity from the link above and, if needed, have updated to appropriate status: Yes Care Teams Drafter Relationship Specialty Start Date End Date Pcp, No [address] [place] [address] PCP - General Family Medicine 11/12/24 Nirmala Johnston, LITIGATION DOCKET MANAGER [address] [place] [address] 11/12/24
[2024-12-09 01:31] LABS: Troponin I < 0.01 ng/ml (0.00-0.034)
[2024-12-09 01:33] VITALS: BP 99/53; PULSE 81; RESP 18; TEMP 36.6; O2SAT 99
== END 2024-12-09 01:46 | disposition home or self-care (01) ==
PROVIDERS: Emergency Provider Emergency Medicine
DX: R07.89 Other chest pain (principal); F07.81 Postconcussional syndrome; R51.9 Headache, unspecified
CPT/HCPCS: 70450; 71045; 80053; 83735; 84484; 84703; 85025; 85378; 93005; 96361; 96374; 96375; 99284; 99285; J0131; J0780; J1200; J3475; J7120

== ENCOUNTER 2024-12-20 15:18 | Outpatient (CLI) | payer OTHER, SELFPAY ==
--- OUTSIDE RECORDS SUMMARY | 2024-11-12 14:09 | XMS_ITS | Encounter Summary ---
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 well seen. No acute dislocations. Mild degenerative changes in the pubic symphysis and critical joints. The hips joint spaces are preserved. IMPRESSION: The known sacral fracture is not well seen. CRITICAL RESULT: No. COMMUNICATION: Per this written report. Drafted by Ulisses Lozano MD on 11/13/2024 4:06 PM Final report signed by Ulisses Lozano MD on 54:08 PM us Katie I Chromy PA IMG XR PROCEDURES Final Result * Lactate, venous (11/13/2024 6:48 AM EDT) Lactate, Venous, Whole Blood 0.8 0.5 - 2.2 mmol/L LAB HEMATOLOGY METHOD 11/13/2024 7:00 AM EDT [facility] Blood Venous blood specimen / Unknown Venipuncture / Unknown 11/13/2024 6:48 AM EDT 11/13/2024 7:00 AM EDT us Katie GARDNER LAB BLOOD ORDERABLES Final Resu lt [facility] [address] [place] [address] * (ABNORMAL) Basic metabolic panel (11/13/2024 6:48 AM EDT) Pathologist [facility] Glucose, Plasma 89 74 - 99 mg/dL 11/13/2024 7:24 AM EDT [facility] BUN, Plasma 9 7 - 21 mg/dL 11/13/2024 7:24 AM EDT [facility] Creatinine, Plasma 0.85 0.60 - 1.10 mg/dL 11/13/2024 7:24 AM EDT [facility] BUN/Creatinine Ratio 11 11/13/2024 7:24 AM EDT [facility] Sodium, Plasma 141 136 - 145 mmol/L 11/13/2024 7:24 AM EDT [facility] Potassium, Plasma 3.9 3.6 - 4.9 mmol/L 11/13/2024 7:24 AM EDT [facility] Chloride, Plasma 109(H) 97 - 107 mmol/L 11/13/2024 7:24 AM EDT [facility] CO2, Plasma 25 22 - 29 mmol/L 11/13/2024 7:24 AM EDT [facility] Anion Gap 7 6 - 16 mmol/L 11/13/2024 7:24 AM EDT [facility] Total Calcium, Plasma 8.4(L) 8.9 - 10.2 mg/dL 11/13/2024 7:24 AM EDT [facility] eGFRcr 98.3 mL/min/1.7 3m*2 11/13/2024 7:24 AM EDT [facility] Comment:Reported eGFRcr in m L/min/1.73m2 is based the CKD-EPI 2020 equation that does not use a race coefficient. Blood Venous blood specimen / Unknown Venipuncture / Unknown 11/13/2024 6:48 AM EDT 11/13/2024 6:57 AM EDT us Katie GARDNER LAB BLOOD ORDERABLES Final Resu lt [facility] [address] [place] [address] * MR Cervical Spine wo IV Contrast (11/13/2024 12:30 AM EDT) Anatomical Region Laterality Modality C-spine Magnetic Resonan ce Impressions 11/13/2024 4:17 PM EDT No MR findings to suggest acute traumatic abnormalities. No central canal stenosis, cord compression or definite abnormal signal within the cord. CRITICAL RESULT: No. COMMUNICATION: Per this written report. Drafted by Rony Carr MD on 11/13/2024 4:11 PM Final report signed by Rony Carr MD on 11/13/2024 4:17 PM Narrative 11/13/2024 4:17 PM EDT CLINICAL INDICATION: Neck pain, acute, no red flags TECHNIQUE: Multiplanar multiecho sequences were obtained through the cervical spine utilizing T1 and T2 without the administration of intravenous contrast. series were obtained including localizer series. COMPARISON: CT cervical spine from 11/12/2024 FINDINGS: Diagnostic Quality: Adequate. Alignment: The bony alignment is normal. Marrow: The marrow signal is normal. Vertebrae and Intervertebral Discs: Vertebral body heights are normal. Ligaments: The anterior and posterior longitudinal ligaments and interspinous ligaments are intact. Spinal Cord: The spinal cord is of normal caliber without abnormal intrinsic signal. Significant findings by level: C2-3: Minimal diffuse disc bulge with no significant central canal stenosis or foraminal narrowing. C3-4: Normal. C4-5: Normal. C5-6: Minimal diffuse disc bulge with no significant central canal stenosis or foraminal narrowing. C6-7: Normal. C7-T1: Normal. Prevertebral and Paraspinal Soft Tissues: There is no prevertebral or paraspinal soft tissue swelling or mass. Upper Thoracic Spine: The visualized upper thoracic spine is normal. Other Findings: None. Procedure Note Rony Alba MD - 11/13/2024 CLINICAL INDICATION: Neck pain, acute, no red flags TECHNIQUE: Multiplanar multiecho sequences were obtained through the cervical spineutilizing T1 and T2 without the administration of intravenous contrast.series were obtained including localizer series. COMPARISON: CT cervical spine from 11/12/2024 FINDINGS: Diagnostic Quality: Adequate. Alignment: The bony alignment is normal. Marrow: The marrow signal is normal. Vertebrae and Intervertebral Discs: Vertebral body heights are normal. Ligaments: The anterior and posterior longitudinal ligaments andinterspinous ligaments are intact. Spinal Cord: The spinal cord is of normal caliber without abnormalintrinsic signal. Significant findings by level: C2-3: Minimal diffuse disc bulge with no significant central canalstenosis or foraminal narrowing. C3-4: Normal. C4-5: Normal. C5-6: Minimal diffuse disc bulge with no significant central canalstenosis or foraminal narrowing. C6-7: Normal. C7-T1: Normal. Prevertebral and Paraspinal Soft Tissues: There is no prevertebral orparaspinal soft tissue swelling or mass. Upper Thoracic Spine: The visualized upper thoracic spine is normal. Other Findings: None. IMPRESSION: No MR findings to suggest acute traumatic abnormalities. No central canalstenosis, cord compression or definite abnormal signal within the cord. CRITICAL RESULT: No. COMMUNICATION: Per this written report. Drafted by Rony Carr MD on 11/13/2024 4:11 PM Final report signed by Rony Carr MD on 11/13/2024 4:17 PM Suha Leach [facility] IM MRI PROCEDURES Final R esult * (ABNORMAL) OXYCODONE CONFIRMATION,URINE (11/12/2024 8:06 PM EDT) Oxycodone 655(H) <50 ng/mL 11/14/2024 6:20 PM EDT [facility] Oxymorphone <50 <50 ng/mL 11/14/2024 6:20 PM EDT [facility] Oxymorphone Glucuronide 148(H) <50 ng/mL 11/14/2024 6:20 PM EDT [facility] Urine Urine specimen obtained by clean catch procedure / Unknown Non-blood Collection / Unknown 11/12/2024 8:06 PM EDT 11/12/2024 8:18 PM EDT Narrative [facility] - 11/14/2024 6:20 PM EDT Test performed by LC-MS/MS at the [facility]. This test was developed and its performance characteristics determined by [facility]. It has not been cleared or approved by the FDA. The laboratory is regulated under CLIA as qualified to perform high-complexity testing. This test is used for clinical purposes. us Jose L Marin MD LAB URINE ORDERABLES Final Result [facility] [address] [place] [address] * (ABNORMAL) Opiates Confirm Urine (11/12/2024 8:06 PM EDT) Codeine <50 <50 ng/mL 11/14/2024 6:20 PM EDT [facility] Codeine Glucuronide <50 <50 ng/mL 11/14/2024 6:20 PM EDT [facility] Desmethyl Tramadol <50 <50 ng/mL 11/14/2024 6:20 PM EDT [facility] EDDP - Methadone Metabolite <50 <50 ng/mL 11/14/2024 6:20 PM EDT [facility] Hydrocodone <50 <50 ng/mL 11/14/2024 6:20 PM EDT [facility] Hydromorphone <50 <50 ng/mL 11/14/2024 6:20 PM EDT [facility] Hydromorphone Glucuronide <50 <50 ng/mL 11/14/2024 6:20 PM EDT [facility] Comment:Metabolite of Hydrom orphone Meperidine <50 <50 ng/mL 11/14/2024 6:20 PM EDT [facility] Methadone <50 <50 ng/mL 11/14/2024 6:20 PM EDT [facility] 6 Monoacetyl morphine <10 <10 ng/mL 11/14/2024 6:20 PM EDT [facility] Morphine 660(H) <50 ng/mL 11/14/2024 6:20 PM EDT [facility] Morphine Glucuronide >1,000(H) <50 ng/mL 11/14/2024 6:20 PM EDT [facility] Comment:Metabolite of Morphi ne Naloxone <50 <50 ng/mL 11/14/2024 6:20 PM EDT [facility] Naloxone Glucuronide <50 <50 ng/mL 11/14/2024 6:20 PM EDT [facility] Comment:Metabolite of Naloxo ne Normeperidine <50 <50 ng/mL 11/14/2024 6:20 PM EDT [facility] Tramadol <50 <50 ng/mL 11/14/2024 6:20 PM EDT [facility] Urine Urine specimen obtained by clean catch procedure / Unknown Non-blood Collection / Unknown 11/12/2024 8:06 PM EDT 11/12/2024 8:18 PM EDT Narrative [facility] - 11/14/2024 6:20 PM EDT Drug analysis is confirmed by LC-MS/MS (LC Tandem Mass Spectrometry) on Urine specimens. This test was developed and its performance characteristics determined by [email or web address]. It has not been cleared or approved by the FDA. The laboratory is regulated under CLIA as qualified to perform high-complexity testing. This test is used for clinical purposes. Testing is performed at the [facility]. us Jose L Marin MD LAB URINE ORDERABLES Final Result [facility] [address] [place] [address] * (ABNORMAL) Fentanyl Urine Confirm (11/12/2024 8:06 PM EDT) Fentanyl 21(H) <1 ng/mL 11/14/2024 6:20 PM EDT [facility] Norfentanyl 83(H) <2 ng/mL 11/14/2024 6:20 PM EDT [facility] Urine Urine specimen obtained by clean catch procedure / Unknown Non-blood Collection / Unknown 11/12/2024 8:06 PM EDT 11/12/2024 8:18 PM EDT Narrative [facility] - 11/14/2024 6:20 PM EDT Drug analysis is confirmed by LC-MS/MS (LC Tandem Mass Spectrometry) on Urine specimens. This test was developed and its performance characteristics determined by [email or web address]. It has not been cleared or approved by the FDA. The laboratory is regulated under CLIA as qualified to perform high-complexity testing. This test is used for clinical purposes. Testing is performed at the [facility]. us Jose L Marin MD LAB URINE ORDERABLES Final Result [facility] [address] [place] [address] * Drug Abuse Screen, Urine (11/12/2024 8:06 PM EDT) Amphetamine Screen Urine Negative Cutoff: 500 ng/mL 11/12/2024 8:56 PM EDT [facility] Benzodiazepines Screen Urine Negative Cutoff: 200 ng/mL 11/12/2024 8:56 PM EDT [facility] Cannabinoid Screen Urine Negative Cutoff: 50 ng/mL 11/12/2024 8:56 PM EDT [facility] Cocaine Screen Urine Negative Cutoff: 300 ng/mL 11/12/2024 8:56 PM EDT [facility] Barbiturate Screen Urine Negative Cutoff: 200 ng/mL 11/12/2024 8:56 PM EDT [facility] Opiate Screen Urine Presumptive positive. Confirmation by LC-MS/MS to follow. Cutoff: 300 ng/mL 11/12/2024 8:56 PM EDT [facility] Methadone Screen Urine Negative Cutoff: 300 ng/mL 11/12/2024 8:56 PM EDT [facility] Buprenorphine Screen Urine Negative Cutoff: 10 ng/mL 11/12/2024 8:56 PM EDT [facility] Fentanyl Screen Urine Presumptive positive. Confirmation by LC-MS/MS to follow. Cutoff: 1 ng/mL 11/12/2024 8:56 PM EDT [facility] Oxycodone Screen Urine Presumptive positive. Confirmation by LC-MS/MS to follow. Cutoff: 100 ng/mL 11/12/2024 8:56 PM EDT [facility] Urine Urine specimen obtained by clean catch procedure / Unknown Non-blood Collection / Unknown 11/12/2024 8:06 PM EDT 11/12/2024 8:18 PM EDT us Jose L Marin MD LAB URINE ORDERABLES Final Result [facility] [address] [place] [address] * Urinalysis with reflex microscopic (Culture NOT Included) (11/12/2024 6:15 PM EDT) Color, Urine Yellow LAB URINALYSIS - AUTOMATED METHOD 11/12/2024 6:30 PM EDT [facility] Clarity, Urine Clear LAB URINALYSIS - AUTOMATED METHOD 11/12/2024 6:30 PM EDT [facility] Spec [place], Urine 1.010 1.005 - 1.030 LAB URINALYSIS - AUTOMATED METHOD 11/12/2024 6:30 PM EDT [facility] pH, Urine 6.0 5.0 - 8.0 LAB URINALYSIS - AUTOMATED METHOD 11/12/2024 6:30 PM EDT [facility] Protein, Urine Negative Negative mg/dL LAB URINALYSIS - AUTOMATED METHOD 11/12/2024 6:30 PM EDT [facility] Glucose, Urine Negative Negative mg/dL LAB URINALYSIS - AUTOMATED METHOD 11/12/2024 6:30 PM EDT [facility] Ketones, Urine Negative Negative mg/dL LAB URINALYSIS - AUTOMATED METHOD 11/12/2024 6:30 PM EDT [facility] Blood, Urine Negative Negative LAB URINALYSIS - AUTOMATED METHOD 11/12/2024 6:30 PM EDT [facility] Bilirubin, Urine Negative Negative LAB URINALYSIS - AUTOMATED METHOD 11/12/2024 6:30 PM EDT [facility] Urobilinogen, Urine 0.2 0.2 to 1.0 mg/dL LAB URINALYSIS - AUTOMATED METHOD 11/12/2024 6:30 PM EDT [facility] Leukocytes, Urine Negative Negative LAB URINALYSIS - AUTOMATED METHOD 11/12/2024 6:30 PM EDT [facility] Nitrite, Urine Negative Negative LAB URINALYSIS - AUTOMATED METHOD 11/12/2024 6:30 PM EDT [facility] Urine Urine specimen obtained by clean catch procedure / Unknown Non-blood Collection / Unknown 11/12/2024 6:15 PM EDT 11/12/2024 6:22 PM EDT us Jose L Marin MD LAB URINE ORDERABLES Final Result [facility] [address] [place] [address] * CT Bony Pelvis (11/12/2024 3:05 PM EDT) Anatomical Region Laterality Modality Pelvis Computed Tomogra phy Addenda Addendum by Josephine Aaron MD on 11/30/2024 9:04 AM EDT Addendum: ADDENDUM: Technique for CT bony pelvis: Images of the bony pelvis were reconstructed from CT angiogram abdomen and pelvis. Reformatted images in the coronal and sagittal planes were generated from the axial data set to facilitate diagnostic accuracy. Drafted by Josephine Aaron MD on 11/30/2024 9:02 AM Final report signed by Josephine Aaron MD on 11/30/2024 9:04 AM Impressions 11/12/2024 4:01 PM EDT 1. Vascular structures are unremarkable. 2. No acute findings in the chest, abdomen or pelvis. 3. No acute fracture or malalignment of the cervical, thoracic and lumbar spine. 4. Subtle nondisplaced fracture of the left sacral ala (series 1 image 35). CRITICAL RESULT: No. COMMUNICATION: Per this written report. Drafted by Josephine Aaron MD on 11/12/2024 3:34 PM Final report signed by Josephine Aaron MD on 11/12/2024 4:01 PM Narrative 11/12/2024 4:01 PM EDT CLINICAL INDICATION: poly trauma TECHNIQUE: Imaging of the chest abdomen and pelvis was performed, from chest through pubic symphysis, using spiral technique, following administration of IV contrast, Omnipaque 350, 100 mL according to the CTA Abdomen/Pelvis protocol. Reformatted images in the coronal, sagittal, and oblique planes were generated from the axial data set to facilitate diagnostic accuracy. In addition, 3D images were created and reviewed. Imaging of the entire cervical, thoracic, and lumbar spine was performed, using spiral technique, without contrast administration. Reformatted images in the coronal and sagittal planes were generated from the axial data set to facilitate diagnostic accuracy and/or surgical planning. Total DLP (Dose-Length Product): 3617.62 mGy.cm (accession [id number]), 3617.62 mGy.cm (accession [id number]), 3617.62 mGy.cm (accession [id number]), 3617.62 mGy.cm (accession [id number]), 3617.62 mGy.cm (accession [id number]), 3617.62 mGy.cm (accession [id number]). Please note: The reported value represents the total of one or more individual components during the CT acquisition on this date and at this time, and as such, the same value may appear in more than one CT report depending on the interpreting/reporting physicians. COMPARISON: None. FINDINGS: CTA Chest: Aorta/Vessels: No acute traumatic aortic injury. No periaortic hematoma. Pleural/Pericardial Space: No pneumothorax. No pleural effusions. No pericardial effusion. Lymph Nodes: No lymphadenopathy within the chest. Lungs: Except for minimal dependent atelectasis, the lungs are clear. Mediastinum: Otherwise unremarkable. Chest Wall: No chest wall hematoma or contusion. Bones: No acute fracture within the chest. CTA Abdomen : Vessels: The abdominal aorta and its major branches are unremarkable. Lung Bases: The lung bases are clear. Liver/Gallbladder/Biliary System: The liver demonstrates homogeneous enhancement. Gallbladder is not visualized. No intra- or extra-hepatic biliary ductal dilatation. Spleen: The spleen enhances homogeneously. Pancreas: The pancreas enhances homogeneously. Adrenals: The adrenals are morphologically unremarkable. Kidneys: The kidneys demonstrate symmetric nephrogram and excretion. No renal or ureteral calculi. No hydronephrosis. Bowel/Mesentery: The small bowel loops are not dilated. The large bowel loops are not dilated. The appendix is not optimally visualized. Lymph Nodes: No lymphadenopathy within the abdomen or pelvis. Fluid Survey: No free fluid in the abdomen. No free fluid in the pelvis. Pelvis: No pelvic mass. Unremarkable urinary bladder. Body Wall: Normal. Bones: CT bony pelvis: Subtle nondisplaced fracture of the left sacral ala (series 1 image 35). No pubic symphysis or sacroiliac diastases. Cervical Spine: Vertebrae: No acute fracture. The odontoid and atlantoaxial joints are intact. Alignment: Normal spinal alignment. Paraspinal Soft Tissues: No paraspinal hematoma. Lung Apices: No pneumothorax at the lung apices. Thoracic Spine: Vertebrae: No acute fracture. Alignment: Normal spinal alignment. Paraspinal Soft Tissues: No paraspinal hematoma. Lumbar Spine: Vertebrae: No acute fracture. Alignment: Normal spinal alignment. Paraspinal Soft Tissues: No paraspinal hematoma. Procedure Note Josephine Aaron MD - 11/12/2024 CLINICAL INDICATION: poly trauma TECHNIQUE: Imaging of the chest abdomen and pelvis was performed, from chest throughpubic symphysis, using spiral technique, following administration of IVcontrast, Omnipaque 350, 100 mL according to the CTA Abdomen/Pelvisprotocol. Reformatted images in the coronal, sagittal, and oblique planeswere generated from the axial data set to facilitate diagnostic accuracy.In addition, 3D images were created and reviewed. Imaging of the entire cervical, thoracic, and lumbar spine was performed,using spiral technique, without contrast administration. Reformattedimages in the coronal and sagittal planes were generated from the axialdata set to facilitate diagnostic accuracy and/or surgical planning. Total DLP (Dose-Length Product): 3617.62 mGy.cm (accession [id number]),3617.62 mGy.cm (accession [id number]), 3617.62 mGy.cm (accession [id number]),3617.62 mGy.cm (accession [id number]), 3617.62 mGy.cm (accession [id number]),3617.62 mGy.cm (accession [id number]). Please note: The reported valuerepresents the total of one or more individual components during the CTacquisition on this date and at this time, and as such, the same value mayappear in more than one CT report depending on the interpreting/reportingphysicians. COMPARISON: None. FINDINGS: CTA Chest: Aorta/Vessels: No acute traumatic aortic injury. No periaortic hematoma. Pleural/Pericardial Space: No pneumothorax. No pleural effusions. Nopericardial effusion. Lymph Nodes: No lymphadenopathy within the chest. Lungs: Except for minimal dependent atelectasis, the lungs are clear. Mediastinum: Otherwise unremarkable. Chest Wall: No chest wall hematoma or contusion. Bones: No acute fracture within the chest. CTA Abdomen : Vessels: The abdominal aorta and its major branches are unremarkable. Lung Bases: The lung bases are clear. Liver/Gallbladder/Biliary System: The liver demonstrates homogeneousenhancement. Gallbladder is not visualized. No intra- or extra-hepaticbiliary ductal dilatation. Spleen: The spleen enhances homogeneously. Pancreas: The pancreas enhances homogeneously. Adrenals: The adrenals are morphologically unremarkable. Kidneys: The kidneys demonstrate symmetric nephrogram and excretion. Norenal or ureteral calculi. No hydronephrosis. Bowel/Mesentery: The small bowel loops are not dilated. The large bowelloops are not dilated. The appendix is not optimally visualized. Lymph Nodes: No lymphadenopathy within the abdomen or pelvis. Fluid Survey: No free fluid in the abdomen. No free fluid in the pelvis. Pelvis: No pelvic mass. Unremarkable urinary bladder. Body Wall: Normal. Bones: CT bony pelvis: Subtle nondisplaced fracture of the left sacral ala(series 1 image 35). No pubic symphysis or sacroiliac diastases. Cervical Spine: Vertebrae: No acute fracture. The odontoid and atlantoaxial joints areintact. Alignment: Normal spinal alignment. Paraspinal Soft Tissues: No paraspinal hematoma. Lung Apices: No pneumothorax at the lung apices. Thoracic Spine: Vertebrae: No acute fracture. Alignment: Normal spinal alignment. Paraspinal Soft Tissues: No paraspinal hematoma. Lumbar Spine: Vertebrae: No acute fracture. Alignment: Normal spinal alignment. Paraspinal Soft Tissues: No paraspinal hematoma. IMPRESSION: 1. Vascular structures are unremarkable. 2. No acute findings in the chest, abdomen or pelvis. 3. No acute fracture or malalignment of the cervical, thoracic and lumbarspine. 4. Subtle nondisplaced fracture of the left sacral ala (series 1 image35). CRITICAL RESULT: No. COMMUNICATION: Per this written report. Drafted by Josephine Aaron MD on 11/12/2024 3:34 PM Final report signed by Josephine Aaron MD on 11/12/2024 4:01 PM Terri Johnson [facility] IMG CT PROCEDURES Edited R esult - Final * CT Lumbar Spine wo IV Contrast (11/12/2024 3:05 PM EDT) Anatomical Region Laterality Modality Spine, L-spine Computed Tomogra phy Addenda Addendum by Josephine Aaron MD on 11/30/2024 9:04 AM EDT Addendum: ADDENDUM: Technique for CT bony pelvis: Images of the bony pelvis were reconstructed from CT angiogram abdomen and pelvis. Reformatted images in the coronal and sagittal planes were generated from the axial data set to facilitate diagnostic accuracy. Drafted by Josephine Aaron MD on 11/30/2024 9:02 AM Final report signed by Josephine Aaron MD on 11/30/2024 9:04 AM Impressions 11/12/2024 4:01 PM EDT 1. Vascular structures are unremarkable. 2. No acute findings in the chest, abdomen or pelvis. 3. No acute fracture or malalignment of the cervical, thoracic and lumbar spine. 4. Subtle nondisplaced fracture of the left sacral ala (series 1 image 35). CRITICAL RESULT: No. COMMUNICATION: Per this written report. Drafted by Josephine Aaron MD on 11/12/2024 3:34 PM Final report signed by Josephine Aaron MD on 11/12/2024 4:01 PM Narrative 11/12/2024 4:01 PM EDT CLINICAL INDICATION: poly trauma TECHNIQUE: Imaging of the chest abdomen and pelvis was performed, from chest through pubic symphysis, using spiral technique, following administration of IV contrast, Omnipaque 350, 100 mL according to the CTA Abdomen/Pelvis protocol. Reformatted images in the coronal, sagittal, and oblique planes were generated from the axial data set to facilitate diagnostic accuracy. In addition, 3D images were created and reviewed. Imaging of the entire cervical, thoracic, and lumbar spine was performed, using spiral technique, without contrast administration. Reformatted images in the coronal and sagittal planes were generated from the axial data set to facilitate diagnostic accuracy and/or surgical planning. Total DLP (Dose-Length Product): 3617.62 mGy.cm (accession [id number]), 3617.62 mGy.cm (accession [id number]), 3617.62 mGy.cm (accession [id number]), 3617.62 mGy.cm (accession [id number]), 3617.62 mGy.cm (accession [id number]), 3617.62 mGy.cm (accession [id number]). Please note: The reported value represents the total of one or more individual components during the CT acquisition on this date and at this time, and as such, the same value may appear in more than one CT report depending on the interpreting/reporting physicians. COMPARISON: None. FINDINGS: CTA Chest: Aorta/Vessels: No acute traumatic aortic injury. No periaortic hematoma. Pleural/Pericardial Space: No pneumothorax. No pleural effusions. No pericardial effusion. Lymph Nodes: No lymphadenopathy within the chest. Lungs: Except for minimal dependent atelectasis, the lungs are clear. Mediastinum: Otherwise unremarkable. Chest Wall: No chest wall hematoma or contusion. Bones: No acute fracture within the chest. CTA Abdomen : Vessels: The abdominal aorta and its major branches are unremarkable. Lung Bases: The lung bases are clear. Liver/Gallbladder/Biliary System: The liver demonstrates homogeneous enhancement. Gallbladder is not visualized. No intra- or extra-hepatic biliary ductal dilatation. Spleen: The spleen enhances homogeneously. Pancreas: The pancreas enhances homogeneously. Adrenals: The adrenals are morphologically unremarkable. Kidneys: The kidneys demonstrate symmetric nephrogram and excretion. No renal or ureteral calculi. No hydronephrosis. Bowel/Mesentery: The small bowel loops are not dilated. The large bowel loops are not dilated. The appendix is not optimally visualized. Lymph Nodes: No lymphadenopathy within the abdomen or pelvis. Fluid Survey: No free fluid in the abdomen. No free fluid in the pelvis. Pelvis: No pelvic mass. Unremarkable urinary bladder. Body Wall: Normal. Bones: CT bony pelvis: Subtle nondisplaced fracture of the left sacral ala (series 1 image 35). No pubic symphysis or sacroiliac diastases. Cervical Spine: Vertebrae: No acute fracture. The odontoid and atlantoaxial joints are intact. Alignment: Normal spinal alignment. Paraspinal Soft Tissues: No paraspinal hematoma. Lung Apices: No pneumothorax at the lung apices. Thoracic Spine: Vertebrae: No acute fracture. Alignment: Normal spinal alignment. Paraspinal Soft Tissues: No paraspinal hematoma. Lumbar Spine: Vertebrae: No acute fracture. Alignment: Normal spinal alignment. Paraspinal Soft Tissues: No paraspinal hematoma. Procedure Note Josephine Aaron MD - 11/12/2024 CLINICAL INDICATION: poly trauma TECHNIQUE: Imaging of the chest abdomen and pelvis was performed, from chest throughpubic symphysis, using spiral technique, following administration of IVcontrast, Omnipaque 350, 100 mL according to the CTA Abdomen/Pelvisprotocol. Reformatted images in the coronal, sagittal, and oblique planeswere generated from the axial data set to facilitate diagnostic accuracy.In addition, 3D images were created and reviewed. Imaging of the entire cervical, thoracic, and lumbar spine was performed,using spiral technique, without contrast administration. Reformattedimages in the coronal and sagittal planes were generated from the axialdata set to facilitate diagnostic accuracy and/or surgical planning. Total DLP (Dose-Length Product): 3617.62 mGy.cm (accession [id number]),3617.62 mGy.cm (accession [id number]), 3617.62 mGy.cm (accession [id number]),3617.62 mGy.cm (accession [id number]), 3617.62 mGy.cm (accession [id number]),3617.62 mGy.cm (accession [id number]). Please note: The reported valuerepresents the total of one or more individual components during the CTacquisition on this date and at this time, and as such, the same value mayappear in more than one CT report depending on the interpreting/reportingphysicians. COMPARISON: None. FINDINGS: CTA Chest: Aorta/Vessels: No acute traumatic aortic injury. No periaortic hematoma. Pleural/Pericardial Space: No pneumothorax. No pleural effusions. Nopericardial effusion. Lymph Nodes: No lymphadenopathy within the chest. Lungs: Except for minimal dependent atelectasis, the lungs are clear. Mediastinum: Otherwise unremarkable. Chest Wall: No chest wall hematoma or contusion. Bones: No acute fracture within the chest. CTA Abdomen : Vessels: The abdominal aorta and its major branches are unremarkable. Lung Bases: The lung bases are clear. Liver/Gallbladder/Biliary System: The liver demonstrates homogeneousenhancement. Gallbladder is not visualized. No intra- or extra-hepaticbiliary ductal dilatation. Spleen: The spleen enhances homogeneously. Pancreas: The pancreas enhances homogeneously. Adrenals: The adrenals are morphologically unremarkable. Kidneys: The kidneys demonstrate symmetric nephrogram and excretion. Norenal or ureteral calculi. No hydronephrosis. Bowel/Mesentery: The small bowel loops are not dilated. The large bowelloops are not dilated. The appendix is not optimally visualized. Lymph Nodes: No lymphadenopathy within the abdomen or pelvis. Fluid Survey: No free fluid in the abdomen. No free fluid in the pelvis. Pelvis: No pelvic mass. Unremarkable urinary bladder. Body Wall: Normal. Bones: CT bony pelvis: Subtle nondisplaced fracture of the left sacral ala(series 1 image 35). No pubic symphysis or sacroiliac diastases. Cervical Spine: Vertebrae: No acute fracture. The odontoid and atlantoaxial joints areintact. Alignment: Normal spinal alignment. Paraspinal Soft Tissues: No paraspinal hematoma. Lung Apices: No pneumothorax at the lung apices. Thoracic Spine: Vertebrae: No acute fracture. Alignment: Normal spinal alignment. Paraspinal Soft Tissues: No paraspinal hematoma. Lumbar Spine: Vertebrae: No acute fracture. Alignment: Normal spinal alignment. Paraspinal Soft Tissues: No paraspinal hematoma. IMPRESSION: 1. Vascular structures are unremarkable. 2. No acute findings in the chest, abdomen or pelvis. 3. No acute fracture or malalignment of the cervical, thoracic and lumbarspine. 4. Subtle nondisplaced fracture of the left sacral ala (series 1 image35). CRITICAL RESULT: No. COMMUNICATION: Per this written report. Drafted by Josephine Aaron MD on 11/12/2024 3:34 PM Final report signed by Josephine Aaron MD on 11/12/2024 4:01 PM Terri Johnson [facility] IMG CT PROCEDURES Edited R esult - Final * CT Thoracic Spine wo IV Contrast (11/12/2024 3:05 PM EDT) Anatomical Region Laterality Modality Spine, T-spine Computed Tomogra phy Addenda Addendum by Josephine Aaron MD on 11/30/2024 9:04 AM EDT Addendum: ADDENDUM: Technique for CT bony pelvis: Images of the bony pelvis were reconstructed from CT angiogram abdomen and pelvis. Reformatted images in the coronal and sagittal planes were generated from the axial data set to facilitate diagnostic accuracy. Drafted by Josephine Aaron MD on 11/30/2024 9:02 AM Final report signed by Josephine Aaron MD on 11/30/2024 9:04 AM Impressions 11/12/2024 4:01 PM EDT 1. Vascular structures are unremarkable. 2. No acute findings in the chest, abdomen or pelvis. 3. No acute fracture or malalignment of the cervical, thoracic and lumbar spine. 4. Subtle nondisplaced fracture of the left sacral ala (series 1 image 35). CRITICAL RESULT: No. COMMUNICATION: Per this written report. Drafted by Josephine Aaron MD on 11/12/2024 3:34 PM Final report signed by Josephine Aaron MD on 11/12/2024 4:01 PM Narrative 11/12/2024 4:01 PM EDT CLINICAL INDICATION: poly trauma TECHNIQUE: Imaging of the chest abdomen and pelvis was performed, from chest through pubic symphysis, using spiral technique, following administration of IV contrast, Omnipaque 350, 100 mL according to the CTA Abdomen/Pelvis protocol. Reformatted images in the coronal, sagittal, and oblique planes were generated from the axial data set to facilitate diagnostic accuracy. In addition, 3D images were created and reviewed. Imaging of the entire cervical, thoracic, and lumbar spine was performed, using spiral technique, without contrast administration. Reformatted images in the coronal and sagittal planes were generated from the axial data set to facilitate diagnostic accuracy and/or surgical planning. Total DLP (Dose-Length Product): 3617.62 mGy.cm (accession [id number]), 3617.62 mGy.cm (accession [id number]), 3617.62 mGy.cm (accession [id number]), 3617.62 mGy.cm (accession [id number]), 3617.62 mGy.cm (accession [id number]), 3617.62 mGy.cm (accession [id number]). Please note: The reported value represents the total of one or more individual components during the CT acquisition on this date and at this time, and as such, the same value may appear in more than one CT report depending on the interpreting/reporting physicians. COMPARISON: None. FINDINGS: CTA Chest: Aorta/Vessels: No acute traumatic aortic injury. No periaortic hematoma. Pleural/Pericardial Space: No pneumothorax. No pleural effusions. No pericardial effusion. Lymph Nodes: No lymphadenopathy within the chest. Lungs: Except for minimal dependent atelectasis, the lungs are clear. Mediastinum: Otherwise unremarkable. Chest Wall: No chest wall hematoma or contusion. Bones: No acute fracture within the chest. CTA Abdomen : Vessels: The abdominal aorta and its major branches are unremarkable. Lung Bases: The lung bases are clear. Liver/Gallbladder/Biliary System: The liver demonstrates homogeneous enhancement. Gallbladder is not visualized. No intra- or extra-hepatic biliary ductal dilatation. Spleen: The spleen enhances homogeneously. Pancreas: The pancreas enhances homogeneously. Adrenals: The adrenals are morphologically unremarkable. Kidneys: The kidneys demonstrate symmetric nephrogram and excretion. No renal or ureteral calculi. No hydronephrosis. Bowel/Mesentery: The small bowel loops are not dilated. The large bowel loops are not dilated. The appendix is not optimally visualized. Lymph Nodes: No lymphadenopathy within the abdomen or pelvis. Fluid Survey: No free fluid in the abdomen. No free fluid in the pelvis. Pelvis: No pelvic mass. Unremarkable urinary bladder. Body Wall: Normal. Bones: CT bony pelvis: Subtle nondisplaced fracture of the left sacral ala (series 1 image 35). No pubic symphysis or sacroiliac diastases. Cervical Spine: Vertebrae: No acute fracture. The odontoid and atlantoaxial joints are intact. Alignment: Normal spinal alignment. Paraspinal Soft Tissues: No paraspinal hematoma. Lung Apices: No pneumothorax at the lung apices. Thoracic Spine: Vertebrae: No acute fracture. Alignment: Normal spinal alignment. Paraspinal Soft Tissues: No paraspinal hematoma. Lumbar Spine: Vertebrae: No acute fracture. Alignment: Normal spinal alignment. Paraspinal Soft Tissues: No paraspinal hematoma. Procedure Note Josephine Aaron MD - 11/12/2024 CLINICAL INDICATION: poly trauma TECHNIQUE: Imaging of the chest abdomen and pelvis was performed, from chest throughpubic symphysis, using spiral technique, following administration of IVcontrast, Omnipaque 350, 100 mL according to the CTA Abdomen/Pelvisprotocol. Reformatted images in the coronal, sagittal, and oblique planeswere generated from the axial data set to facilitate diagnostic accuracy.In addition, 3D images were created and reviewed. Imaging of the entire cervical, thoracic, and lumbar spine was performed,using spiral technique, without contrast administration. Reformattedimages in the coronal and sagittal planes were generated from the axialdata set to facilitate diagnostic accuracy and/or surgical planning. Total DLP (Dose-Length Product): 3617.62 mGy.cm (accession [id number]),3617.62 mGy.cm (accession [id number]), 3617.62 mGy.cm (accession [id number]),3617.62 mGy.cm (accession [id number]), 3617.62 mGy.cm (accession [id number]),3617.62 mGy.cm (accession [id number]). Please note: The reported valuerepresents the total of one or more individual components during the CTacquisition on this date and at this time, and as such, the same value mayappear in more than one CT report depending on the interpreting/reportingphysicians. COMPARISON: None. FINDINGS: CTA Chest: Aorta/Vessels: No acute traumatic aortic injury. No periaortic hematoma. Pleural/Pericardial Space: No pneumothorax. No pleural effusions. Nopericardial effusion. Lymph Nodes: No lymphadenopathy within the chest. Lungs: Except for minimal dependent atelectasis, the lungs are clear. Mediastinum: Otherwise unremarkable. Chest Wall: No chest wall hematoma or contusion. Bones: No acute fracture within the chest. CTA Abdomen : Vessels: The abdominal aorta and its major branches are unremarkable. Lung Bases: The lung bases are clear. Liver/Gallbladder/Biliary System: The liver demonstrates homogeneousenhancement. Gallbladder is not visualized. No intra- or extra-hepaticbiliary ductal dilatation. Spleen: The spleen enhances homogeneously. Pancreas: The pancreas enhances homogeneously. Adrenals: The adrenals are morphologically unremarkable. Kidneys: The kidneys demonstrate symmetric nephrogram and excretion. Norenal or ureteral calculi. No hydronephrosis. Bowel/Mesentery: The small bowel loops are not dilated. The large bowelloops are not dilated. The appendix is not optimally visualized. Lymph Nodes: No lymphadenopathy within the abdomen or pelvis. Fluid Survey: No free fluid in the abdomen. No free fluid in the pelvis. Pelvis: No pelvic mass. Unremarkable urinary bladder. Body Wall: Normal. Bones: CT bony pelvis: Subtle nondisplaced fracture of the left sacral ala(series 1 image 35). No pubic symphysis or sacroiliac diastases. Cervical Spine: Vertebrae: No acute fracture. The odontoid and atlantoaxial joints areintact. Alignment: Normal spinal alignment. Paraspinal Soft Tissues: No paraspinal hematoma. Lung Apices: No pneumothorax at the lung apices. Thoracic Spine: Vertebrae: No acute fracture. Alignment: Normal spinal alignment. Paraspinal Soft Tissues: No paraspinal hematoma. Lumbar Spine: Vertebrae: No acute fracture. Alignment: Normal spinal alignment. Paraspinal Soft Tissues: No paraspinal hematoma. IMPRESSION: 1. Vascular structures are unremarkable. 2. No acute findings in the chest, abdomen or pelvis. 3. No acute fracture or malalignment of the cervical, thoracic and lumbarspine. 4. Subtle nondisplaced fracture of the left sacral ala (series 1 image35). CRITICAL RESULT: No. COMMUNICATION: Per this written report. Drafted by Josephine Aaron MD on 11/12/2024 3:34 PM Final report signed by Josephine Aaron MD on 11/12/2024 4:01 PM us eTrri Johnson APRN IM CT PROCEDURES Edited R esult - Final * CT Cervical Spine wo IV Contrast (11/12/2024 3:05 PM EDT) Anatomical Region Laterality Modality Spine, C-spine Computed Tomogra phy Addenda Addendum by Josephine Aaron MD on 11/30/2024 9:04 AM EDT Addendum: ADDENDUM: Technique for CT bony pelvis: Images of the bony pelvis were reconstructed from CT angiogram abdomen and pelvis. Reformatted images in the coronal and sagittal planes were generated from the axial data set to facilitate diagnostic accuracy. Drafted by Josephine Aaron MD on 11/30/2024 9:02 AM Final report signed by Josephine Aaron MD on 11/30/2024 9:04 AM Impressions 11/12/2024 4:01 PM EDT 1. Vascular structures are unremarkable. 2. No acute findings in the chest, abdomen or pelvis. 3. No acute fracture or malalignment of the cervical, thoracic and lumbar spine. 4. Subtle nondisplaced fracture of the left sacral ala (series 1 image 35). CRITICAL RESULT: No. COMMUNICATION: Per this written report. Drafted by Josephine Aaron MD on 11/12/2024 3:34 PM Final report signed by Josephine Aaron MD on 11/12/2024 4:01 PM Narrative 11/12/2024 4:01 PM EDT CLINICAL INDICATION: poly trauma TECHNIQUE: Imaging of the chest abdomen and pelvis was performed, from chest through pubic symphysis, using spiral technique, following administration of IV contrast, Omnipaque 350, 100 mL according to the CTA Abdomen/Pelvis protocol. Reformatted images in the coronal, sagittal, and oblique planes were generated from the axial data set to facilitate diagnostic accuracy. In addition, 3D images were created and reviewed. Imaging of the entire cervical, thoracic, and lumbar spine was performed, using spiral technique, without contrast administration. Reformatted images in the coronal and sagittal planes were generated from the axial data set to facilitate diagnostic accuracy and/or surgical planning. Total DLP (Dose-Length Product): 3617.62 mGy.cm (accession [id number]), 3617.62 mGy.cm (accession [id number]), 3617.62 mGy.cm (accession [id number]), 3617.62 mGy.cm (accession [id number]), 3617.62 mGy.cm (accession [id number]), 3617.62 mGy.cm (accession [id number]). Please note: The reported value represents the total of one or more individual components during the CT acquisition on this date and at this time, and as such, the same value may appear in more than one CT report depending on the interpreting/reporting physicians. COMPARISON: None. FINDINGS: CTA Chest: Aorta/Vessels: No acute traumatic aortic injury. No periaortic hematoma. Pleural/Pericardial Space: No pneumothorax. No pleural effusions. No pericardial effusion. Lymph Nodes: No lymphadenopathy within the chest. Lungs: Except for minimal dependent atelectasis, the lungs are clear. Mediastinum: Otherwise unremarkable. Chest Wall: No chest wall hematoma or contusion. Bones: No acute fracture within the chest. CTA Abdomen : Vessels: The abdominal aorta and its major branches are unremarkable. Lung Bases: The lung bases are clear. Liver/Gallbladder/Biliary System: The liver demonstrates homogeneous enhancement. Gallbladder is not visualized. No intra- or extra-hepatic biliary ductal dilatation. Spleen: The spleen enhances homogeneously. Pancreas: The pancreas enhances homogeneously. Adrenals: The adrenals are morphologically unremarkable. Kidneys: The kidneys demonstrate symmetric nephrogram and excretion. No renal or ureteral calculi. No hydronephrosis. Bowel/Mesentery: The small bowel loops are not dilated. The large bowel loops are not dilated. The appendix is not optimally visualized. Lymph Nodes: No lymphadenopathy within the abdomen or pelvis. Fluid Survey: No free fluid in the abdomen. No free fluid in the pelvis. Pelvis: No pelvic mass. Unremarkable urinary bladder. Body Wall: Normal. Bones: CT bony pelvis: Subtle nondisplaced fracture of the left sacral ala (series 1 image 35). No pubic symphysis or sacroiliac diastases. Cervical Spine: Vertebrae: No acute fracture. The odontoid and atlantoaxial joints are intact. Alignment: Normal spinal alignment. Paraspinal Soft Tissues: No paraspinal hematoma. Lung Apices: No pneumothorax at the lung apices. Thoracic Spine: Vertebrae: No acute fracture. Alignment: Normal spinal alignment. Paraspinal Soft Tissues: No paraspinal hematoma. Lumbar Spine: Vertebrae: No acute fracture. Alignment: Normal spinal alignment. Paraspinal Soft Tissues: No paraspinal hematoma. Procedure Note Josephine Aaron MD - 11/12/2024 CLINICAL INDICATION: poly trauma TECHNIQUE: Imaging of the chest abdomen and pelvis was performed, from chest throughpubic symphysis, using spiral technique, following administration of IVcontrast, Omnipaque 350, 100 mL according to the CTA Abdomen/Pelvisprotocol. Reformatted images in the coronal, sagittal, and oblique planeswere generated from the axial data set to facilitate diagnostic accuracy.In addition, 3D images were created and reviewed. Imaging of the entire cervical, thoracic, and lumbar spine was performed,using spiral technique, without contrast administration. Reformattedimages in the coronal and sagittal planes were generated from the axialdata set to facilitate diagnostic accuracy and/or surgical planning. Total DLP (Dose-Length Product): 3617.62 mGy.cm (accession [id number]),3617.62 mGy.cm (accession [id number]), 3617.62 mGy.cm (accession [id number]),3617.62 mGy.cm (accession [id number]), 3617.62 mGy.cm (accession [id number]),3617.62 mGy.cm (accession [id number]). Please note: The reported valuerepresents the total of one or more individual components during the CTacquisition on this date and at this time, and as such, the same value mayappear in more than one CT report depending on the interpreting/reportingphysicians. COMPARISON: None. FINDINGS: CTA Chest: Aorta/Vessels: No acute traumatic aortic injury. No periaortic hematoma. Pleural/Pericardial Space: No pneumothorax. No pleural effusions. Nopericardial effusion. Lymph Nodes: No lymphadenopathy within the chest. Lungs: Except for minimal dependent atelectasis, the lungs are clear. Mediastinum: Otherwise unremarkable. Chest Wall: No chest wall hematoma or contusion. Bones: No acute fracture within the chest. CTA Abdomen : Vessels: The abdominal aorta and its major branches are unremarkable. Lung Bases: The lung bases are clear. Liver/Gallbladder/Biliary System: The liver demonstrates homogeneousenhancement. Gallbladder is not visualized. No intra- or extra-hepaticbiliary ductal dilatation. Spleen: The spleen enhances homogeneously. Pancreas: The pancreas enhances homogeneously. Adrenals: The adrenals are morphologically unremarkable. Kidneys: The kidneys demonstrate symmetric nephrogram and excretion. Norenal or ureteral calculi. No hydronephrosis. Bowel/Mesentery: The small bowel loops are not dilated. The large bowelloops are not dilated. The appendix is not optimally visualized. Lymph Nodes: No lymphadenopathy within the abdomen or pelvis. Fluid Survey: No free fluid in the abdomen. No free fluid in the pelvis. Pelvis: No pelvic mass. Unremarkable urinary bladder. Body Wall: Normal. Bones: CT bony pelvis: Subtle nondisplaced fracture of the left sacral ala(series 1 image 35). No pubic symphysis or sacroiliac diastases. Cervical Spine: Vertebrae: No acute fracture. The odontoid and atlantoaxial joints areintact. Alignment: Normal spinal alignment. Paraspinal Soft Tissues: No paraspinal hematoma. Lung Apices: No pneumothorax at the lung apices. Thoracic Spine: Vertebrae: No acute fracture. Alignment: Normal spinal alignment. Paraspinal Soft Tissues: No paraspinal hematoma. Lumbar Spine: Vertebrae: No acute fracture. Alignment: Normal spinal alignment. Paraspinal Soft Tissues: No paraspinal hematoma. IMPRESSION: 1. Vascular structures are unremarkable. 2. No acute findings in the chest, abdomen or pelvis. 3. No acute fracture or malalignment of the cervical, thoracic and lumbarspine. 4. Subtle nondisplaced fracture of the left sacral ala (series 1 image35). CRITICAL RESULT: No. COMMUNICATION: Per this written report. Drafted by Josephine Aaron MD on 11/12/2024 3:34 PM Final report signed by Josephine Aaron MD on 11/12/2024 4:01 PM Terri Johnson APRN [facility] [place] CT PROCEDURES Edited R esult - Final * CT Angio Abdomen Pelvis (11/12/2024 3:05 PM EDT) Anatomical Region Laterality Modality Abdomen, Pelvis Computed Tomogra phy Addenda Addendum by Josephine Aaron MD on 11/30/2024 9:04 AM EDT Addendum: ADDENDUM: Technique for CT bony pelvis: Images of the bony pelvis were reconstructed from CT angiogram abdomen and pelvis. Reformatted images in the coronal and sagittal planes were generated from the axial data set to facilitate diagnostic accuracy. Drafted by Josephine Aaron MD on 11/30/2024 9:02 AM Final report signed by Josephine Aaron MD on 11/30/2024 9:04 AM Impressions 11/12/2024 4:01 PM EDT 1. Vascular structures are unremarkable. 2. No acute findings in the chest, abdomen or pelvis. 3. No acute fracture or malalignment of the cervical, thoracic and lumbar spine. 4. Subtle nondisplaced fracture of the left sacral ala (series 1 image 35). CRITICAL RESULT: No. COMMUNICATION: Per this written report. Drafted by Josephine Aaron MD on 11/12/2024 3:34 PM Final report signed by Josephine Aaron MD on 11/12/2024 4:01 PM Narrative 11/12/2024 4:01 PM EDT CLINICAL INDICATION: poly trauma TECHNIQUE: Imaging of the chest abdomen and pelvis was performed, from chest through pubic symphysis, using spiral technique, following administration of IV contrast, Omnipaque 350, 100 mL according to the CTA Abdomen/Pelvis protocol. Reformatted images in the coronal, sagittal, and oblique planes were generated from the axial data set to facilitate diagnostic accuracy. In addition, 3D images were created and reviewed. Imaging of the entire cervical, thoracic, and lumbar spine was performed, using spiral technique, without contrast administration. Reformatted images in the coronal and sagittal planes were generated from the axial data set to facilitate diagnostic accuracy and/or surgical planning. Total DLP (Dose-Length Product): 3617.62 mGy.cm (accession [id number]), 3617.62 mGy.cm (accession [id number]), 3617.62 mGy.cm (accession [id number]), 3617.62 mGy.cm (accession [id number]), 3617.62 mGy.cm (accession [id number]), 3617.62 mGy.cm (accession [id number]). Please note: The reported value represents the total of one or more individual components during the CT acquisition on this date and at this time, and as such, the same value may appear in more than one CT report depending on the interpreting/reporting physicians. COMPARISON: None. FINDINGS: CTA Chest: Aorta/Vessels: No acute traumatic aortic injury. No periaortic hematoma. Pleural/Pericardial Space: No pneumothorax. No pleural effusions. No pericardial effusion. Lymph Nodes: No lymphadenopathy within the chest. Lungs: Except for minimal dependent atelectasis, the lungs are clear. Mediastinum: Otherwise unremarkable. Chest Wall: No chest wall hematoma or contusion. Bones: No acute fracture within the chest. CTA Abdomen : Vessels: The abdominal aorta and its major branches are unremarkable. Lung Bases: The lung bases are clear. Liver/Gallbladder/Biliary System: The liver demonstrates homogeneous enhancement. Gallbladder is not visualized. No intra- or extra-hepatic biliary ductal dilatation. Spleen: The spleen enhances homogeneously. Pancreas: The pancreas enhances homogeneously. Adrenals: The adrenals are morphologically unremarkable. Kidneys: The kidneys demonstrate symmetric nephrogram and excretion. No renal or ureteral calculi. No hydronephrosis. Bowel/Mesentery: The small bowel loops are not dilated. The large bowel loops are not dilated. The appendix is not optimally visualized. Lymph Nodes: No lymphadenopathy within the abdomen or pelvis. Fluid Survey: No free fluid in the abdomen. No free fluid in the pelvis. Pelvis: No pelvic mass. Unremarkable urinary bladder. Body Wall: Normal. Bones: CT bony pelvis: Subtle nondisplaced fracture of the left sacral ala (series 1 image 35). No pubic symphysis or sacroiliac diastases. Cervical Spine: Vertebrae: No acute fracture. The odontoid and atlantoaxial joints are intact. Alignment: Normal spinal alignment. Paraspinal Soft Tissues: No paraspinal hematoma. Lung Apices: No pneumothorax at the lung apices. Thoracic Spine: Vertebrae: No acute fracture. Alignment: Normal spinal alignment. Paraspinal Soft Tissues: No paraspinal hematoma. Lumbar Spine: Vertebrae: No acute fracture. Alignment: Normal spinal alignment. Paraspinal Soft Tissues: No paraspinal hematoma. Procedure Note Josephine Aaron MD - 11/12/2024 CLINICAL INDICATION: poly trauma TECHNIQUE: Imaging of the chest abdomen and pelvis was performed, from chest throughpubic symphysis, using spiral technique, following administration of IVcontrast, Omnipaque 350, 100 mL according to the CTA Abdomen/Pelvisprotocol. Reformatted images in the coronal, sagittal, and oblique planeswere generated from the axial data set to facilitate diagnostic accuracy.In addition, 3D images were created and reviewed. Imaging of the entire cervical, thoracic, and lumbar spine was performed,using spiral technique, without contrast administration. Reformattedimages in the coronal and sagittal planes were generated from the axialdata set to facilitate diagnostic accuracy and/or surgical planning. Total DLP (Dose-Length Product): 3617.62 mGy.cm (accession [id number]),3617.62 mGy.cm (accession [id number]), 3617.62 mGy.cm (accession [id number]),3617.62 mGy.cm (accession [id number]), 3617.62 mGy.cm (accession [id number]),3617.62 mGy.cm (accession [id number]). Please note: The reported valuerepresents the total of one or more individual components during the CTacquisition on this date and at this time, and as such, the same value mayappear in more than one CT report depending on the interpreting/reportingphysicians. COMPARISON: None. FINDINGS: CTA Chest: Aorta/Vessels: No acute traumatic aortic injury. No periaortic hematoma. Pleural/Pericardial Space: No pneumothorax. No pleural effusions. Nopericardial effusion. Lymph Nodes: No lymphadenopathy within the chest. Lungs: Except for minimal dependent atelectasis, the lungs are clear. Mediastinum: Otherwise unremarkable. Chest Wall: No chest wall hematoma or contusion. Bones: No acute fracture within the chest. CTA Abdomen : Vessels: The abdominal aorta and its major branches are unremarkable. Lung Bases: The lung bases are clear. Liver/Gallbladder/Biliary System: The liver demonstrates homogeneousenhancement. Gallbladder is not visualized. No intra- or extra-hepaticbiliary ductal dilatation. Spleen: The spleen enhances homogeneously. Pancreas: The pancreas enhances homogeneously. Adrenals: The adrenals are morphologically unremarkable. Kidneys: The kidneys demonstrate symmetric nephrogram and excretion. Norenal or ureteral calculi. No hydronephrosis. Bowel/Mesentery: The small bowel loops are not dilated. The large bowelloops are not dilated. The appendix is not optimally visualized. Lymph Nodes: No lymphadenopathy within the abdomen or pelvis. Fluid Survey: No free fluid in the abdomen. No free fluid in the pelvis. Pelvis: No pelvic mass. Unremarkable urinary bladder. Body Wall: Normal. Bones: CT bony pelvis: Subtle nondisplaced fracture of the left sacral ala(series 1 image 35). No pubic symphysis or sacroiliac diastases. Cervical Spine: Vertebrae: No acute fracture. The odontoid and atlantoaxial joints areintact. Alignment: Normal spinal alignment. Paraspinal Soft Tissues: No paraspinal hematoma. Lung Apices: No pneumothorax at the lung apices. Thoracic Spine: Vertebrae: No acute fracture. Alignment: Normal spinal alignment. Paraspinal Soft Tissues: No paraspinal hematoma. Lumbar Spine: Vertebrae: No acute fracture. Alignment: Normal spinal alignment. Paraspinal Soft Tissues: No paraspinal hematoma. IMPRESSION: 1. Vascular structures are unremarkable. 2. No acute findings in the chest, abdomen or pelvis. 3. No acute fracture or malalignment of the cervical, thoracic and lumbarspine. 4. Subtle nondisplaced fracture of the left sacral ala (series 1 image35). CRITICAL RESULT: No. COMMUNICATION: Per this written report. Drafted by Josephine Aaron MD on 11/12/2024 3:34 PM Final report signed by Josephine Aaron MD on 11/12/2024 4:01 PM Terri Johnson APRN IM CT PROCEDURES Edited R esult - Final * CT Angio Chest (11/12/2024 3:05 PM EDT) Anatomical Region Laterality Modality Chest Computed Tomogra phy Addenda Addendum by Josephine Aaron MD on 11/30/2024 9:04 AM EDT Addendum: ADDENDUM: Technique for CT bony pelvis: Images of the bony pelvis were reconstructed from CT angiogram abdomen and pelvis. Reformatted images in the coronal and sagittal planes were generated from the axial data set to facilitate diagnostic accuracy. Drafted by Josephine Aaron MD on 11/30/2024 9:02 AM Final report signed by Josephine Aaron MD on 11/30/2024 9:04 AM Impressions 11/12/2024 4:01 PM EDT 1. Vascular structures are unremarkable. 2. No acute findings in the chest, abdomen or pelvis. 3. No acute fracture or malalignment of the cervical, thoracic and lumbar spine. 4. Subtle nondisplaced fracture of the left sacral ala (series 1 image 35). CRITICAL RESULT: No. COMMUNICATION: Per this written report. Drafted by Josephine Aaron MD on 11/12/2024 3:34 PM Final report signed by Josephine Aaron MD on 11/12/2024 4:01 PM Narrative 11/12/2024 4:01 PM EDT CLINICAL INDICATION: poly trauma TECHNIQUE: Imaging of the chest abdomen and pelvis was performed, from chest through pubic symphysis, using spiral technique, following administration of IV contrast, Omnipaque 350, 100 mL according to the CTA Abdomen/Pelvis protocol. Reformatted images in the coronal, sagittal, and oblique planes were generated from the axial data set to facilitate diagnostic accuracy. In addition, 3D images were created and reviewed. Imaging of the entire cervical, thoracic, and lumbar spine was performed, using spiral technique, without contrast administration. Reformatted images in the coronal and sagittal planes were generated from the axial data set to facilitate diagnostic accuracy and/or surgical planning. Total DLP (Dose-Length Product): 3617.62 mGy.cm (accession [id number]), 3617.62 mGy.cm (accession [id number]), 3617.62 mGy.cm (accession [id number]), 3617.62 mGy.cm (accession [id number]), 3617.62 mGy.cm (accession [id number]), 3617.62 mGy.cm (accession [id number]). Please note: The reported value represents the total of one or more individual components during the CT acquisition on this date and at this time, and as such, the same value may appear in more than one CT report depending on the interpreting/reporting physicians. COMPARISON: None. FINDINGS: CTA Chest: Aorta/Vessels: No acute traumatic aortic injury. No periaortic hematoma. Pleural/Pericardial Space: No pneumothorax. No pleural effusions. No pericardial effusion. Lymph Nodes: No lymphadenopathy within the chest. Lungs: Except for minimal dependent atelectasis, the lungs are clear. Mediastinum: Otherwise unremarkable. Chest Wall: No chest wall hematoma or contusion. Bones: No acute fracture within the chest. CTA Abdomen : Vessels: The abdominal aorta and its major branches are unremarkable. Lung Bases: The lung bases are clear. Liver/Gallbladder/Biliary System: The liver demonstrates homogeneous enhancement. Gallbladder is not visualized. No intra- or extra-hepatic biliary ductal dilatation. Spleen: The spleen enhances homogeneously. Pancreas: The pancreas enhances homogeneously. Adrenals: The adrenals are morphologically unremarkable. Kidneys: The kidneys demonstrate symmetric nephrogram and excretion. No renal or ureteral calculi. No hydronephrosis. Bowel/Mesentery: The small bowel loops are not dilated. The large bowel loops are not dilated. The appendix is not optimally visualized. Lymph Nodes: No lymphadenopathy within the abdomen or pelvis. Fluid Survey: No free fluid in the abdomen. No free fluid in the pelvis. Pelvis: No pelvic mass. Unremarkable urinary bladder. Body Wall: Normal. Bones: CT bony pelvis: Subtle nondisplaced fracture of the left sacral ala (series 1 image 35). No pubic symphysis or sacroiliac diastases. Cervical Spine: Vertebrae: No acute fracture. The odontoid and atlantoaxial joints are intact. Alignment: Normal spinal alignment. Paraspinal Soft Tissues: No paraspinal hematoma. Lung Apices: No pneumothorax at the lung apices. Thoracic Spine: Vertebrae: No acute fracture. Alignment: Normal spinal alignment. Paraspinal Soft Tissues: No paraspinal hematoma. Lumbar Spine: Vertebrae: No acute fracture. Alignment: Normal spinal alignment. Paraspinal Soft Tissues: No paraspinal hematoma. Procedure Note Josephine Aaron MD - 11/12/2024 CLINICAL INDICATION: poly trauma TECHNIQUE: Imaging of the chest abdomen and pelvis was performed, from chest throughpubic symphysis, using spiral technique, following administration of IVcontrast, Omnipaque 350, 100 mL according to the CTA Abdomen/Pelvisprotocol. Reformatted images in the coronal, sagittal, and oblique planeswere generated from the axial data set to facilitate diagnostic accuracy.In addition, 3D images were created and reviewed. Imaging of the entire cervical, thoracic, and lumbar spine was performed,using spiral technique, without contrast administration. Reformattedimages in the coronal and sagittal planes were generated from the axialdata set to facilitate diagnostic accuracy and/or surgical planning. Total DLP (Dose-Length Product): 3617.62 mGy.cm (accession [id number]),3617.62 mGy.cm (accession [id number]), 3617.62 mGy.cm (accession [id number]),3617.62 mGy.cm (accession [id number]), 3617.62 mGy.cm (accession [id number]),3617.62 mGy.cm (accession [id number]). Please note: The reported valuerepresents the total of one or more individual components during the CTacquisition on this date and at this time, and as such, the same value mayappear in more than one CT report depending on the interpreting/reportingphysicians. COMPARISON: None. FINDINGS: CTA Chest: Aorta/Vessels: No acute traumatic aortic injury. No periaortic hematoma. Pleural/Pericardial Space: No pneumothorax. No pleural effusions. Nopericardial effusion. Lymph Nodes: No lymphadenopathy within the chest. Lungs: Except for minimal dependent atelectasis, the lungs are clear. Mediastinum: Otherwise unremarkable. Chest Wall: No chest wall hematoma or contusion. Bones: No acute fracture within the chest. CTA Abdomen : Vessels: The abdominal aorta and its major branches are unremarkable. Lung Bases: The lung bases are clear. Liver/Gallbladder/Biliary System: The liver demonstrates homogeneousenhancement. Gallbladder is not visualized. No intra- or extra-hepaticbiliary ductal dilatation. Spleen: The spleen enhances homogeneously. Pancreas: The pancreas enhances homogeneously. Adrenals: The adrenals are morphologically unremarkable. Kidneys: The kidneys demonstrate symmetric nephrogram and excretion. Norenal or ureteral calculi. No hydronephrosis. Bowel/Mesentery: The small bowel loops are not dilated. The large bowelloops are not dilated. The appendix is not optimally visualized. Lymph Nodes: No lymphadenopathy within the abdomen or pelvis. Fluid Survey: No free fluid in the abdomen. No free fluid in the pelvis. Pelvis: No pelvic mass. Unremarkable urinary bladder. Body Wall: Normal. Bones: CT bony pelvis: Subtle nondisplaced fracture of the left sacral ala(series 1 image 35). No pubic symphysis or sacroiliac diastases. Cervical Spine: Vertebrae: No acute fracture. The odontoid and atlantoaxial joints areintact. Alignment: Normal spinal alignment. Paraspinal Soft Tissues: No paraspinal hematoma. Lung Apices: No pneumothorax at the lung apices. Thoracic Spine: Vertebrae: No acute fracture. Alignment: Normal spinal alignment. Paraspinal Soft Tissues: No paraspinal hematoma. Lumbar Spine: Vertebrae: No acute fracture. Alignment: Normal spinal alignment. Paraspinal Soft Tissues: No paraspinal hematoma. IMPRESSION: 1. Vascular structures are unremarkable. 2. No acute findings in the chest, abdomen or pelvis. 3. No acute fracture or malalignment of the cervical, thoracic and lumbarspine. 4. Subtle nondisplaced fracture of the left sacral ala (series 1 image35). CRITICAL RESULT: No. COMMUNICATION: Per this written report. Drafted by Josephine Aaron MD on 11/12/2024 3:34 PM Final report signed by Josephine Aaron MD on 11/12/2024 4:01 PM Terri Juanita Johnson [employer] IMG CT PROCEDURES Edited R esult - Final * CT Face wo IV Contrast (11/12/2024 3:05 PM EDT) Anatomical Region Laterality Modality Facial bones Computed Tomogra phy Impressions 11/12/2024 3:37 PM EDT 1. No acute intracranial abnormality. 2. No acute facial bone fracture. 3. CTA of the head and neck without evidence of acute extracranial or intracranial arterial injury. CRITICAL RESULT: No. COMMUNICATION: Per this written report. Drafted by Elias Jones MD on 11/12/2024 3:31 PM Final report signed by Elias Jones MD on 11/12/2024 3:37 PM Narrative 11/12/2024 3:37 PM EDT CLINICAL INDICATION: poly trauma TECHNIQUE: Routine contiguous axial CT images of the head and face were obtained without contrast administration. The axial dataset through the face was used to reconstruct images in the sagittal and coronal planes. Contrast-enhanced CT angiogram of the head and neck was obtained after administration of intravenous iodinated contrast using 0.6 mm axial slice thickness with multiplanar reformations and maximum intensity projections. In addition, 3D images were created and reviewed. AI Utilization: None Total DLP (Dose-Length Product): 3617.62 mGy.cm (accession [id number]), 3617.62 mGy.cm (accession [id number]), 3617.62 mGy.cm (accession [id number]), 3617.62 mGy.cm (accession [id number]). Please note: The reported value represents the total of one or more individual components during the CT acquisition on this date and at this time, and as such, the same value may appear in more than one CT report depending on the interpreting/reporting physicians. COMPARISON: None. FINDINGS: CT Head without: CSF spaces clear. No midline shift, no attenuation of basilar cisterns. Hebert-white differentiation preserved. No acute intracranial hemorrhage. Calvarium and skull base without acute findings. Mastoids and middle ear cavities aerated. Small upper right frontal scalp laceration. CT Face: Facial bones: No acute facial bone fracture. Paranasal sinuses: Aerated. Globes: Globes intact, possible tissues unremarkable. Soft tissues: No discrete facial hematomas. CTA Head: There is normal vascular anatomy. There is no evidence of vascular injury, specifically no significant arterial stenosis, occlusion, dissection, or pseudoaneurysm. The intracranial venous structures are also fairly well opacified and appear patent. CTA Neck: There is normal vascular anatomy. There is no evidence of vascular injury, specifically no significant arterial stenosis, occlusion, dissection, or pseudoaneurysm. There is 0% stenosis of the ICA origins by NASCET criteria. Procedure Note Elias Jones MD - 11/12/2024 CLINICAL INDICATION: poly trauma TECHNIQUE: Routine contiguous axial CT images of the head and face were obtainedwithout contrast administration. The axial dataset through the face wasused to reconstruct images in the sagittal and coronal planes. Contrast-enhanced CT angiogram of the head and neck was obtained afteradministration of intravenous iodinated contrast using 0.6 mm axial slicethickness with multiplanar reformations and maximum intensity projections.In addition, 3D images were created and reviewed. AI Utilization: None Total DLP (Dose-Length Product): 3617.62 mGy.cm (accession [id number]),3617.62 mGy.cm (accession [id number]), 3617.62 mGy.cm (accession [id number]),3617.62 mGy.cm (accession [id number]). Please note: The reported valuerepresents the total of one or more individual components during the CTacquisition on this date and at this time, and as such, the same value mayappear in more than one CT report depending on the interpreting/reportingphysicians. COMPARISON: None. FINDINGS: CT Head without: CSF spaces clear. No midline shift, no attenuation of basilar cisterns. Hebert-white differentiation preserved. No acute intracranial hemorrhage. Calvarium and skull base without acute findings. Mastoids and middle ear cavities aerated. Small upper right frontal scalp laceration. CT Face: Facial bones: No acute facial bone fracture. Paranasal sinuses: Aerated. Globes: Globes intact, possible tissues unremarkable. Soft tissues: No discrete facial hematomas. CTA Head: There is normal vascular anatomy. There is no evidence of vascular injury,specifically no significant arterial stenosis, occlusion, dissection, orpseudoaneurysm. The intracranial venous structures are also fairly wellopacified and appear patent. CTA Neck: There is normal vascular anatomy. There is no evidence of vascular injury,specifically no significant arterial stenosis, occlusion, dissection, orpseudoaneurysm. There is 0% stenosis of the ICA origins by NASCETcriteria. IMPRESSION: 1. No acute intracranial abnormality. 2. No acute facial bone fracture. 3. CTA of the head and neck without evidence of acute extracranial orintracranial arterial injury. CRITICAL RESULT: No. COMMUNICATION: Per this written report. Drafted by Elias Jones MD on 11/12/2024 3:31 PM Final report signed by Elias Jones MD on 11/12/2024 3:37 PM Terri Johnson APRN IMG CT PROCEDURES Final Re sult * CT Angio Neck (11/12/2024 3:05 PM EDT) Anatomical Region Laterality Modality Carotid Artery Computed Tomogra phy Impressions 11/12/2024 3:37 PM EDT 1. No acute intracranial abnormality. 2. No acute facial bone fracture. 3. CTA of the head and neck without evidence of acute extracranial or intracranial arterial injury. CRITICAL RESULT: No. COMMUNICATION: Per this written report. Drafted by Elias Jones MD on 11/12/2024 3:31 PM Final report signed by Elias Jones MD on 11/12/2024 3:37 PM Narrative 11/12/2024 3:37 PM EDT CLINICAL INDICATION: poly trauma TECHNIQUE: Routine contiguous axial CT images of the head and face were obtained without contrast administration. The axial dataset through the face was used to reconstruct images in the sagittal and coronal planes. Contrast-enhanced CT angiogram of the head and neck was obtained after administration of intravenous iodinated contrast using 0.6 mm axial slice thickness with multiplanar reformations and maximum intensity projections. In addition, 3D images were created and reviewed. AI Utilization: None Total DLP (Dose-Length Product): 3617.62 mGy.cm (accession [id number]), 3617.62 mGy.cm (accession [id number]), 3617.62 mGy.cm (accession [id number]), 3617.62 mGy.cm (accession [id number]). Please note: The reported value represents the total of one or more individual components during the CT acquisition on this date and at this time, and as such, the same value may appear in more than one CT report depending on the interpreting/reporting physicians. COMPARISON: None. FINDINGS: CT Head without: CSF spaces clear. No midline shift, no attenuation of basilar cisterns. Hebert-white differentiation preserved. No acute intracranial hemorrhage. Calvarium and skull base without acute findings. Mastoids and middle ear cavities aerated. Small upper right frontal scalp laceration. CT Face: Facial bones: No acute facial bone fracture. Paranasal sinuses: Aerated. Globes: Globes intact, possible tissues unremarkable. Soft tissues: No discrete facial hematomas. CTA Head: There is normal vascular anatomy. There is no evidence of vascular injury, specifically no significant arterial stenosis, occlusion, dissection, or pseudoaneurysm. The intracranial venous structures are also fairly well opacified and appear patent. CTA Neck: There is normal vascular anatomy. There is no evidence of vascular injury, specifically no significant arterial stenosis, occlusion, dissection, or pseudoaneurysm. There is 0% stenosis of the ICA origins by NASCET criteria. Procedure Note Elias Jones MD - 11/12/2024 CLINICAL INDICATION: poly trauma TECHNIQUE: Routine contiguous axial CT images of the head and face were obtainedwithout contrast administration. The axial dataset through the face wasused to reconstruct images in the sagittal and coronal planes. Contrast-enhanced CT angiogram of the head and neck was obtained afteradministration of intravenous iodinated contrast using 0.6 mm axial slicethickness with multiplanar reformations and maximum intensity projections.In addition, 3D images were created and reviewed. AI Utilization: None Total DLP (Dose-Length Product): 3617.62 mGy.cm (accession [id number]),3617.62 mGy.cm (accession [id number]), 3617.62 mGy.cm (accession [id number]),3617.62 mGy.cm (accession [id number]). Please note: The reported valuerepresents the total of one or more individual components during the CTacquisition on this date and at this time, and as such, the same value mayappear in more than one CT report depending on the interpreting/reportingphysicians. COMPARISON: None. FINDINGS: CT Head without: CSF spaces clear. No midline shift, no attenuation of basilar cisterns. Hebert-white differentiation preserved. No acute intracranial hemorrhage. Calvarium and skull base without acute findings. Mastoids and middle ear cavities aerated. Small upper right frontal scalp laceration. CT Face: Facial bones: No acute facial bone fracture. Paranasal sinuses: Aerated. Globes: Globes intact, possible tissues unremarkable. Soft tissues: No discrete facial hematomas. CTA Head: There is normal vascular anatomy. There is no evidence of vascular injury,specifically no significant arterial stenosis, occlusion, dissection, orpseudoaneurysm. The intracranial venous structures are also fairly wellopacified and appear patent. CTA Neck: There is normal vascular anatomy. There is no evidence of vascular injury,specifically no significant arterial stenosis, occlusion, dissection, orpseudoaneurysm. There is 0% stenosis of the ICA origins by NASCETcriteria. IMPRESSION: 1. No acute intracranial abnormality. 2. No acute facial bone fracture. 3. CTA of the head and neck without evidence of acute extracranial orintracranial arterial injury. CRITICAL RESULT: No. COMMUNICATION: Per this written report. Drafted by Elias Jones MD on 11/12/2024 3:31 PM Final report signed by Elias Jones MD on 11/12/2024 3:37 PM Terri Johnson [employer] IMG CT PROCEDURES Final Re sult * CT Head wo IV Contrast (11/12/2024 3:05 PM EDT) Anatomical Region Laterality Modality Head Computed Tomogra phy Impressions 11/12/2024 3:37 PM EDT 1. No acute intracranial abnormality. 2. No acute facial bone fracture. 3. CTA of the head and neck without evidence of acute extracranial or intracranial arterial injury. CRITICAL RESULT: No. COMMUNICATION: Per this written report. Drafted by Elias Jones MD on 11/12/2024 3:31 PM Final report signed by Elias Jones MD on 11/12/2024 3:37 PM Narrative 11/12/2024 3:37 PM EDT CLINICAL INDICATION: poly trauma TECHNIQUE: Routine contiguous axial CT images of the head and face were obtained without contrast administration. The axial dataset through the face was used to reconstruct images in the sagittal and coronal planes. Contrast-enhanced CT angiogram of the head and neck was obtained after administration of intravenous iodinated contrast using 0.6 mm axial slice thickness with multiplanar reformations and maximum intensity projections. In addition, 3D images were created and reviewed. AI Utilization: None Total DLP (Dose-Length Product): 3617.62 mGy.cm (accession [id number]), 3617.62 mGy.cm (accession [id number]), 3617.62 mGy.cm (accession [id number]), 3617.62 mGy.cm (accession [id number]). Please note: The reported value represents the total of one or more individual components during the CT acquisition on this date and at this time, and as such, the same value may appear in more than one CT report depending on the interpreting/reporting physicians. COMPARISON: None. FINDINGS: CT Head without: CSF spaces clear. No midline shift, no attenuation of basilar cisterns. Hebert-white differentiation preserved. No acute intracranial hemorrhage. Calvarium and skull base without acute findings. Mastoids and middle ear cavities aerated. Small upper right frontal scalp laceration. CT Face: Facial bones: No acute facial bone fracture. Paranasal sinuses: Aerated. Globes: Globes intact, possible tissues unremarkable. Soft tissues: No discrete facial hematomas. CTA Head: There is normal vascular anatomy. There is no evidence of vascular injury, specifically no significant arterial stenosis, occlusion,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 mg oxyCODONE (Roxicodone) immediate release tablet 5 mg 5 mg, Oral, Every 4 hours PRN, Starting on 11/13/24 at 1638, Until 11/13/24 at 1926, Routine, severe pain Given 11/13/2024 4:57 PM EDT 5 mg oxyCODONE (Roxicodone) immediate release tablet 5 mg 5 mg, Oral, Every 4 hours PRN, Starting on 11/13/24 at 1924, Until 11/14/24 at 1459, Routine, moderate pain polyethylene glycol (Miralax) packet 17 g 17 g, Oral, Daily, First dose on 11/13/24 at 0900, Until Discontinued, Routine Given 11/13/2024 9:02 AM EDT 17 g potassium chloride CR (Klor-Con) ER tablet 40 mEq 40 mEq, Oral, Every 4 hours, 2 doses, First dose on 11/13/24 at 0730, Last dose on 11/13/24 at 1130, Routine Given 11/13/2024 12:28 PM EDT 40 mEq Given 11/13/2024 6:42 AM EDT 40 mEq senna-docusate (Kelle-Colace) 8.6-50 MG per tablet 1 tablet 1 tablet, Oral, Nightly, First dose on 11/13/24 at 2100, Until Discontinued, Routine Given 11/13/2024 8:05 PM EDT 1 tablet sodium chloride 0.9 % flush 10 mL 10 mL, Intravenous, Every 12 hours, First dose on 11/12/24 at 1540, Until Discontinued, Routine Given 11/14/2024 5:25 AM EDT 10 mL Given 11/12/2024 4:01 PM EDT 10 mL sodium chloride 0.9 % flush 10 mL 10 mL, Intravenous, As needed, Starting on 11/12/24 at 1501, Until 11/14/24 at 1459, Routine, line care documented in this encounter Active and Recently Administered Medications Times are shown in EDT. Scheduled Medication Order 11/12/2024 11/13/2024 11/14/2024 acetaminophen (Tylenol) tablet 1,000 mg 1,000 mg, Oral, Every 6 hours scheduled, First dose on 11/12/24 at 1800, Until Discontinued, Routine 1709 (Not Given - Provider: Franklyn Vazquez RN - Reason: NPO)2300 (Given - Provider: Olya Patterson RN) 0615 (Given - Provider: Padmini Pinzon)1228 (Given - Provider: Fartun Goodrich RN)1700 (Given - Provider: Fartun Goodrich RN) 0005 (Given - Provider: Jarvis Caceres RN)0552 (Given - Provider: Jarvis Caceres RN)1200 (Canceled Entry - Provider: Automatic Discharge Provider - Comment: Automatically canceled at discontinue of medication order) bacitracin (14-30g tube) ointment 1 Tube 1 Tube, Topical, 3 times daily, First dose on 11/13/24 at 1100, Until Discontinued, Routine 1228 (Given - Provider: Fartun Goodrich RN)1635 (Given - Provider: Fartun Goodrich RN)2002 (Given - Provider: Jarvis Caceres RN) 0946 (Given - Provider: Jo Quick, CARSON) enoxaparin (Lovenox) syringe 30 mg 30 mg, Subcutaneous, 2 times daily, First dose on 11/13/24 at 1415, Until Discontinued, Routine 1548 (Not Given - Provider: Fartun Goodrich RN - Reason: Patient/family refused)2003 (Given - Provider: Jarvis Caceres RN) 0944 (Given - Provider: Jo Quick, CARSON) HYDROmorphone (Dilaudid) injection 0.25 mg (COMPLETED) 0.25 mg, Intravenous, Once, 1 dose, On 11/13/24 at 2015, Routine 2002 (Given - Provider: Jarvis Caceres RN) iohexol (OMNIPaque) 350 MG/ML injection 100 mL (COMPLETED) 100 mL, Intravenous, Once in imaging, 1 dose, Starting on 11/12/24 at 1440, Until 11/12/24 at 1446, Routine, Imaging Protocol Orders 1446 (Given - Provider: Leonela Alanis) ketorolac (Toradol) injection 15 mg (COMPLETED) 15 mg, Intravenous, Once, 1 dose, On 11/13/24 at 0930, Routine 0901 (Given - Provider: Fartun Goodrich RN) methocarbamol (Robaxin) tablet 1,000 mg 1,000 mg, Oral, 4 times daily, First dose (after last modification) on 11/13/24 at 1800, Until Discontinued, Routine 1700 (Given - Provider: Fartun Goodrich RN)2137 (Given - Provider: Jarvis Caceres RN) 0944 (Given - Provider: Jo Quick, CARSON)1400 (Canceled Entry - Provider: Automatic Discharge Provider - Comment: Automatically canceled at discontinue of medication order) methocarbamol (Robaxin) tablet 500 mg (CANCELED) 500 mg, Oral, 4 times daily, First dose (after last modification) on 11/13/24 at 0900, Until Discontinued, Routine 0902 (Given - Provider: Fartun Goodrich RN)1500 (Given - Provider: Fartun Goodrich RN) morphine PF 4 mg (COMPLETED) 4 mg, Intravenous, Once, 1 dose, On 11/12/24 at 1550, Routine 1705 (Given - Provider: Franklyn Vazquez, CARSON) polyethylene glycol (Miralax) packet 17 g 17 g, Oral, Daily, First dose on 11/13/24 at 0900, Until Discontinued, Routine 09 (Given - Provider: Fartun Goodrich RN) 0945 (Not Given - Provider: Jo Quick RN - Reason: Patient/family refused) potassium chloride CR (Klor-Con) ER tablet 40 mEq (COMPLETED) 40 mEq, Oral, Every 4 hours, 2 doses, First dose on 11/13/24 at 0730, Last dose on 11/13/24 at 1130, Routine 0642 (Given - Provider: Padmini Pinzon)1228 (Given - Provider: Fartun Goodrich, CARSON) senna-docusate (Kelle-Colace) 8.6-50 MG per tablet 1 tablet 1 tablet, Oral, Nightly, First dose on 11/13/24 at 2100, Until Discontinued, Routine 2004 (Given - Provider: Jarvis Caceres, CARSON) sodium chloride 0.9 % flush 10 mL(Linked Group 1) 10 mL, Intravenous, Every 12 hours, First dose on 11/12/24 at 1540, Until Discontinued, Routine 1601 (Given - Provider: Elsa Pacheco, CARSON) 0336 (Not Given - Provider: Padmini Pinzon - Reason: Hold for condition: must add comment - Comment: IVMF infusing)1537 (Not Given - Provider: Fartun Goodrich RN - Reason: Patient/family refused) 0525 (Given - Provider: Jarvis Caceres RN) Continuous Medication Order 11/12/2024 11/13/2024 11/14/2024 lactated Ringer's infusion (CANCELED) 75 mL/hr, Intravenous, Continuous, Starting on 11/12/24 at 1540, Until 11/13/24 at 0743, Routine 1733 (New Bag - Provider: Franklyn Vazquez, RN) PRN Medication Order 11/12/2024 11/13/2024 11/14/2024 albuterol (Proventil) (2.5 MG/3ML) 0.083% nebulizer solution 2.5 mg 2.5 mg, Nebulization, Every 6 hours PRN, Starting on 11/12/24 at 1513, Until 11/14/24 at 1459, Routine, shortness of breath fentaNYL (Sublimaze) injection (COMPLETED) Intravenous, Code/trauma/sedation medication, Starting on 11/12/24 at 1439, Until 11/12/24 at 1439, Routine 1439 (Given - Provider: Shari Maldonado RN)1440 (Canceled Entry - Provider: Sharron Epstein, RN - Comment: Automatically documented as Canceled Entry when linked to one-step medication.) meclizine (Antivert) tablet 25 mg 25 mg, Oral, 3 times daily PRN, Starting on 11/14/24 at 0935, Until 11/14/24 at 1459, Routine, dizziness methocarbamol (Robaxin) tablet 500 mg (CANCELED) 500 mg, Oral, 4 times daily PRN, Starting on 11/12/24 at 1513, Until 11/13/24 at 0743, Routine, muscle spasms 1951 (Given - Provider: Padmini Pinzon) 005 (Given - Provider: Padmini Pinzon) metoclopramide (Reglan) injection 10 mg(Linked Group 2) 10 mg, Intravenous, Every 6 hours PRN, Starting on 11/12/24 at 2017, Until 11/14/24 at 1459, Routine, nausea, vomiting 2026 (Given - Provider: Padmini Pinzon) metoclopramide (Reglan) tablet 10 mg(Linked Group 2) 10 mg, Oral, Every 6 hours PRN, Starting on 11/12/24 at 2017, Until 11/14/24 at 1459, Routine, nausea, vomiting 2026 (See Alternative - Provider: Padmini Pinzon) ondansetron (Zofran) 4 MG/5ML solution 4 mg(Linked Group 3) 4 mg, Oral, Every 6 hours PRN, Starting on 11/12/24 at 1513, Until 11/14/24 at 1459, Routine, nausea, vomiting 1705 (See Alternative - Provider: Franklyn Vazquez, CARSON) 0750 (See Alternative - Provider: Fartun Goodrich, RN)2137 (See Alternative - Provider: Jarvis Caceres, RN) 0959 (See Alternative - Provider: Jo Quick, RN) ondansetron (Zofran) injection 4 mg(Linked Group 3) 4 mg, Intravenous, Every 6 hours PRN, Starting on 11/12/24 at 1513, Until 11/14/24 at 1459, Routine, vomiting, nausea 1705 (Given - Provider: Franklyn Vazquez, CARSON) 0750 (Given - Provider: Fartun Goodrich, RN)2137 (See Alternative - Provider: Jarvis Caceres, CARSON) 0959 (See Alternative - Provider: Jo Quick, CARSON) ondansetron ODT (Zofran-ODT) disintegrating tablet 4 mg(Linked Group 3) 4 mg, Oral, Every 6 hours PRN, Starting on 11/12/24 at 1513, Until 11/14/24 at 1459, Routine, nausea, vomiting 1705 (See Alternative - Provider: Franklyn Vazquez RN) 0750 (See Alternative - Provider: Fartun Goodrich, CARSON)2137 (Given - Provider: Jarvis Caceres, CARSON) 0959 (Given - Provider: Jo Quick, CARSON) oxyCODONE (Roxicodone) immediate release tablet 10 mg(Linked Group 4) 10 mg, Oral, Every 6 hours PRN, Starting on 11/13/24 at 1924, Until 11/14/24 at 1459, Routine, severe pain oxyCODONE (Roxicodone) immediate release tablet 5 mg (CANCELED) 5 mg, Oral, Every 6 hours PRN, Starting on 11/12/24 at 1513, Until 11/13/24 at 1638, Routine, severe pain 1826 (Given - Provider: Franklyn Vazquez RN) 0056 (Given - Provider: Padmini Pinzon)0657 (Given - Provider: Padmini Pinzon)1232 (Given - Provider: Fartun Goodrich RN) oxyCODONE (Roxicodone) immediate release tablet 5 mg (CANCELED) 5 mg, Oral, Every 4 hours PRN, Starting on 11/13/24 at 1638, Until 11/13/24 at 1926, Routine, severe pain 1657 (Given - Provider: Fartun Goodrich RN) oxyCODONE (Roxicodone) immediate release tablet 5 mg(Linked Group 4) 5 mg, Oral, Every 4 hours PRN, Starting on 11/13/24 at 1924, Until Thu11/14/24 at 1459, Routine, moderate pain sodium chloride 0.9 % flush 10 mL(Linked Group 1) 10 mL, Intravenous, As needed, Starting on 11/12/24 at 1501, Until Thu11/14/24 at 1459, Routine, line care Linked Groups Order Group 1: Insert peripheral IV (COMPLETED) Once, On 11/12/24 at 1502, For 1 occurrence And Saline lock IV (COMPLETED) Once, On 11/12/24 at 1502, For 1 occurrence And sodium chloride 0.9 % flush 10 mLJump to med 10 mL, Intravenous, Every 12 hours, First dose on 11/12/24 at 1540, Until Discontinued, Routine And sodium chloride 0.9 % flush 10 mLJump to med 10 mL, Intravenous, As needed, Starting on 11/12/24 at 1501, Until Thu11/14/24 at 1459, Routine, line care Group 2: metoclopramide (Reglan) tablet 10 mgJump to med 10 mg, Oral, Every 6 hours PRN, Starting on 11/12/24 at 2017, Until Thu11/14/24 at 1459, Routine, nausea, vomiting Or metoclopramide (Reglan) injection 10 mgJump to med 10 mg, Intravenous, Every 6 hours PRN, Starting on 11/12/24 at 2017, Until Thu11/14/24 at 1459, Routine, nausea, vomiting Group 3: ondansetron ODT (Zofran-ODT) disintegrating tablet 4 mgJump to med 4 mg, Oral, Every 6 hours PRN, Starting on 11/12/24 at 1513, Until Thu11/14/24 at 1459, Routine, nausea, vomiting Or ondansetron (Zofran) injection 4 mgJump to med 4 mg, Intravenous, Every 6 hours PRN, Starting on 11/12/24 at 1513, Until Thu11/14/24 at 1459, Routine, vomiting, nausea Or ondansetron (Zofran) 4 MG/5ML solution 4 mgJump to med 4 mg, Oral, Every 6 hours PRN, Starting on 11/12/24 at 1513, Until Thu11/14/24 at 1459, Routine, nausea, vomiting Group 4: oxyCODONE (Roxicodone) immediate release tablet 5 mgJump to med 5 mg, Oral, Every 4 hours PRN, Starting on 11/13/24 at 1924, Until Thu11/14/24 at 1459, Routine, moderate pain Or oxyCODONE (Roxicodone) immediate release tablet 10 mgJump to med 10 mg, Oral, Every 6 hours PRN, Starting on 11/13/24 at 1924, Until Thu11/14/24 at 1459, Routine, severe pain documented in this encounter Additional Health Concerns Assessment Noted Time PHQ-9 Depression Total Score: 10 024 9:54 AM EDT A fall risk assessment has been complete d for the patient 01/14/2024 10:05 AM EDT A Body Mass Index follow-up plan has been documented for the patient 11/14/2024 11:24 AM EDT documented as of this encounter 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
--- OUTSIDE RECORDS SUMMARY | 2024-12-14 10:40 | XMS_ITS | Encounter Summary ---
Author Organization Healthcare Address [address] [place] [address] Care Team Providers Care Alteration Specialist Name Role Phone Pcp, No Primary Care Provider Unavailabl e Preston Nirmala Mccabe BLOOD BANK ORDER CONTROL CLERK Unavailable [phone] Reason for Referral * Consultation (Routine) - Authorized Specialty Diagnoses / Procedures Referred By Akash silva Referred To Contact Physical Therapy Diagnoses Concussion without loss of consciousness, initial encounter Acute post-traumatic headache, not intractable Jadiel Montes DO [address] [place] [address] Phone: tel: fax: Referral ID Status Reason Start Date Expiration Date Visits Requested Visits Authorized [id number] Authorized Consult and Treat 12/14/2024 06/15/2026 1 1 Encounter Details Date Type Department Care Team (Late st Contact Info) Description 12/14/2024 10:40 AM EDT Office Visit Physical Medicine & Rehabilitation Clinic at [facility] [address] [facility] [place] [address] Jadiel Montes DO [address] [place] [address] Concussion without loss of consciousness, [...] any time in the past 12 m [facility], were you homeless or living in a fci (including now)? No 11/14/2024 Utilities Answer Date Recorded In the past 12 months has e [employer], gas, oil, or water company threatened to [...] energy Not at all 12/14/2024 10:45 AM Sandhya Berry Poor appetite or overeating Not at all 12/14/2024 10 :45 AM Sandhya Saavedra Feeling bad about yourself - or that you are a failure or have let yourself or your family down Not at all 12/14/2024 10:45 AM Sandhya Berry Trouble concentrating on things, such as reading the newspaper or watching television Not at all 12/14/2024 10:45 AM Sandhya Berry Moving or speaking so slowly that other people could have noticed? Or the opposite - being so fidgety or restless that you have been moving around a lot more than usual. Not at all 12/14/2024 10:45 AM Sandhya Berry Thoughts that you would be better off or hurting yourself in some way Not at all 12/14/2024 10:45 AM aSndhya Jimenez Patient Health Questionnaire-9 Score 0 12/14/2024 10:45 AM Sandhya Mcfarlane * Calculated C-SSRS Risk Score (Lifetime/Recent) Answer Date of Assessment Author No Risk Indicated 12/14/2024 10:45 AM Sandhya Galeano * If you checked off any problems on this questionnaire so far, Question Answer Date of Assessment Author How difficult have these problems made it for you to do your work, take care of things at home, or get along with other people? Not difficult at all 12/14/2024 10:45 AM Sandhya Saavedra * Question Answer Date of Assessment Author 1. Wish to be (Past 1 Month) No 12/14/2024 10:45 AM Sandhya Berry 2. Non-Specific Active Suicidal Thoughts (Past 1 Month) No 12/14/2024 10:45 AM Sandhya Berry 6. Suicidal Behavior (Lifetime) No 12/14/2024 10:45 AM Sandhya Berry documented as of this encounter Miscellaneous Notes * Patient Instructions - Jadiel Montes DO - 12/14/2024 10:40 AM EDT - Stop Trazodone - Start Amitriptyline 25mg nightly for headache and sleep - Start PT for concussion close to home documented in this encounter Plan of Treatment Upcoming Encounters Date Type Department Care Team (Late st Contact Info) Description 01/09/2025 11:00 AM EDT Office Visit [facility] at [facility] [address] [facility] [place] [address] Jadiel Montes DO [address] [place] [address] Scheduled Referrals Name Type Priority Associated Diagnoses [...] Time PHQ-9 Depression Total Score: 0 12/15/19 10:45 AM EDT A fall risk assessment has been complete d for the patient 12/14/2024 10:52 AM EDT A Body Mass Index follow-up plan has been documented for the patient 12/14/2024 11:55 AM EDT documented as of this encounter Care Teams Alteration Specialist Relationship Specialty Start Date End Date Pcp, Melinda [address] [place] [address] PCP - General Family Medicine 11/12/24 Nirmala Johnston APRN [address] [place] [address] 11/12/24 documented as of this encounter
--- OUTSIDE RECORDS SUMMARY | 2024-12-20 15:22 | XMS_ITS | Clinical Summary ---
Author Organization Healthcare Address [address] [place] [address] Care Team Providers Care Candy Roller Name Role Phone Pcp, No Primary Care Provider Unavailabl e Nirmala Johnston [employer]LLWAY WORKER Unavailable [phone] Allergies Active Allergy Reactions Criticality Noted Date [...] Active Additional Information Patient not taking.Reported on 12/14/2024 methylPREDNISolone (Medrol Dospak) 4 MG tablets Follow schedule on package instructions 21 tablet 09/21/19 24 Active ondansetron ODT (Zofran-ODT) 4 MG disintegrating [...] Active Additional Information Patient not taking.Reported on 12/14/2024 hydrOXYzine HCl (Atarax) 25 MG tablet Take 1 tablet (25 mg) by mouth every 6 (six) hours if needed for itching. Active sertraline (Zoloft) 25 MG tablet Take 1 tablet (25 mg) by mouth 1 (one) time each day. Active traZODone (Desyrel) 50 MG tablet Take 1 tablet by mouth nightly. 11/24/19 25 Active amitriptyline (Elavil) 25 MG tablet Take 1 tablet by mouth nightly. 30 tablet 2 12/15/19 25 Active sertraline (Zoloft) 100 MG tablet Take 1.5 tablets by mouth daily. Active busPIRone (Buspar) 7.5 MG tablet Take 1 tablet by mouth 2 times a day. Active hydrOXYzine pamoate (Vistaril) 25 MG capsule Take 1 capsule by mouth at night as needed for itching. Active acetaminophen (Tylenol) 500 MG tablet Take 2 tablets by mouth every 6 hours. 100 tablet 11/15/19 25 Active meclizine (Antivert) 25 MG tablet Take 1 tablet by mouth 3 times a day as needed for dizziness. 30 tablet 11/15/19 25 Active methocarbamol (Robaxin) 500 MG tablet Take 2 tablets by mouth 4 times a day. 240 tablet 08/11/20 25 Active Additional Information Patient not taking.Reported on 12/14/2024 ondansetron ODT (Zofran-ODT) 4 MG disintegrating tablet Dissolve 1 tablet on the tongue every 6 hours as needed for nausea or vomiting. 20 tablet 11/15/19 Active scopolamine (Transderm-Scop) 1 MG/3DAYS patch [address] 1 patch on the skin every 3rd day over 72 hours. 10 patch 11/15/19 Active polyethylene glycol (Miralax) 17 g packet Take 17 g by mouth daily. 3 each 11/16/19 Active promethazine (Phenergan) 25 MG tablet Take 1 tablet by mouth every 6 hours as needed for nausea or vomiting. 30 tablet 11/15/19 Active enoxaparin (Lovenox) 30 MG/0.3ML solution prefilled syringe Inject 0.3 mL under the skin 2 times a day for 27 days. 16.2 mL 11/15/19 025 bacitracin, 14-30g tube, 500 UNIT/GM ointment Apply topically 2 times a day for 7 days. 14 g 11/15/19 025 Active Problems Problem Noted Date Diagnosed [...] Plan (11/13/2024 10:06 AM EDT): c collar [facility] MRI pending Assessment & Plan (11/12/2024 3:40 PM EDT): - In c collar - [facility] 11/12/2024 Assessment & Plan (11/13/2024 10:06 AM EDT): - Albuterol PRN Restart home medications as able Assessment & Plan (11/12/2024 3:40 PM EDT): - Albuterol PRN Acute bilateral low back pain without sciatica 0 11/12/2024 Assessment & Plan (11/13/2024 10:06 AM EDT): - pending scans - Improvement in LE tingling. Worse on R than L - [facility] Assessment & Plan (11/12/2024 3:40 PM EDT): - pending scans - Improvement in LE tingling. 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 022 Overview (06/06/2021): Added automatically from request for surgery [id number] Encounters Date Type Department Care Team Description 12/20/2024 Telephone [facility] [address] [place] [address] Jadiel Montes DO HCN - Patient Message 12/14/2024 10:40 AM EDT Office Visit [facility] [address] [place] [id number] Jadiel Montes DO Concussion without loss of consciousness, initial encounter (Primary Dx); Acute post-traumatic headache, not intractable 12/14/2024 Travel 11/13/2024 Travel 11/12/2024 2:09 PM EDT - 11/14/2024 12:58 PM EDT Hospital Encounter [facility] Inpatient [address] [place] [address] Mac Marin MD Bernard, MD Qasim Gonzalez, MD Enrique Arguelles, Rita Medina MD Acute bilateral low back [...] any time in the [facility], were you homeless or living in a care home (including now)? No 11/14/2024 Utilities Answer [...] Pulse 59 12/14/2024 10:45 AM EDT Temperature 36.5 C (97.7 F) 11/14/2024 8:39 AM EDT Respiratory Rate 16 11/14/2024 8:39 AM EDT Oxygen Saturation 99% 12/14/2024 10:45 AM EDT Inhaled Oxygen Concentration - - Weight 54.4 kg (120 lb) 12/14/2024 10:45 AM EDT Height 152.4 cm (5') 12/14/2024 10:45 AM EDT Body Mass Index 23.44 12/14/2024 10:45 AM EDT Plan of Treatment Upcoming Encounters Date Type Department Care Team (Late st Contact Info) Description 01/09/2025 11:00 AM EDT Office Visit [facility] [address] [place] [address] Jadiel Montes, [address] [place] [address] Health Maintenance Due Date Last Done Comments [facility]-HIV Screening 1999 [facility]-Hepatitis C Screening 1999 [facility]-/Child/Adol SDOH Screenings 1999 [facility]-Varicella Vaccines (2 of 2 - 2-dose childhood series) 12/14/2003 12/04/2000 HPV Vaccines (1 - 3-dose series) 11/14/2014 [facility]-Pneumococcal Vaccine: Pediatrics (0 to 5 Years) and At-Risk Patients (6 to 49 Years) (1 of 2 - PCV) 11/14/2018 03/08/2001, 06/05/2000 [id number] Vaccine (3 - season) 2024 05/02/2020, 04/04/2020 [facility]-Influenza Vaccine (#1) 12/05/202401/15, 12/12/2013, 12/31/2012, Additional history exists [facility]- SDOH Screenings 05/17/2025 [facility]-Adult SDOH Screenings 05/17/2025 11/14/2024 [facility]-Depression Screening 12/14/2025 12/14/2024, 12/05 [facility]-Pap Smear 08/16/2027 08/15/2024 [facility]-DTaP,Tdap,and Td Vaccines (8 - Td or Tdap) 01/16/2032 01/15/2022, 01/13/2011, 11/16/2003, Additional history exists [facility]-Zoster Vaccines (1 of 2) 11/14/2049 12/04/2000 [facility]-HIB Vaccines Completed 12/04/2000, , 01/17/2000 [facility]-IPV Vaccines Completed 11/16/2003, , 03/18/2000, Additional history exists [facility]-Hepatitis A Vaccines Completed , 11/18/2021, 07/24/2008, Additional history exists [facility]-Hepatitis B Vaccines Completed , 11/18/2021, 10/05/2020, Additional history exists [facility]-Rotavirus Vaccines Aged Out No lo nger eligible based on patient's age to complete this topic Medical Devices Implanted Type Area Coining Press Operator Device Identifier Shelf Expiration Date Model / Serial / Lot Munden All Suture Qfix 1.8mm - [id number] Implanted:Qty: 4 on 07/19/2021 by Arnold Echevarria MD at [facility] Left: Hip [employer] ([employer])-[id number] 05/17/2024 / / [id number] Munden All Suture Qfix 1.8mm - [id number] Implanted:Qty: 1 on 07/19/2021 by Arnold Echevarria MD at [facility] Left: Hip [employer] ([employer])-[id number] 04/11/2024 / / [id number] Munden All Suture Qfix 1.8mm - [id number] Implanted:Qty: 1 on 07/19/2021 by Arnold Echevarria MD at [facility] Left: Hip [employer] ([employer])-[id number] 05/07/20236844 Munden All Suture Qfix 1.8mm - [id number] Implanted:Qty: 7 on 12/02/2023 by Arnold Echevarria MD at [facility] Right: Hip [employer] ([employer])-[id number] 07/07/2026 [id number] Explanted Type Area Coining Press Operator Device Identifier Shelf Expiration Date Model / Serial / Lot Munden All Suture Qfix 1.8mm - [id number] Explanted:Qty: 2 on 07/19/2021 by Arnold Echevarria MD at [facility] Left: Hip [employer] ([employer])-[id number] 05/07/20236844 Procedures Procedure Name Priority Date/Time Associated [...] * Lactate, venous (11/13/2024 6:48 AM EDT) Pathologist [facility] Lactate, Venous, Whole Blood 0.8 0.5 - 2.2 mmol/L LAB HEMATOLOGY METHOD 11/13/2024 7:00 AM EDT [facility] Blood Venous blood specimen / Unknown Venipuncture / Unknown 11/13/2024 6:48 AM EDT 11/13/2024 7:00 AM EDT Katie GARDNER LAB BLOOD ORDERABLES Final Resu lt [facility] [address] [place] [address] * (ABNORMAL) Basic metabolic panel (11/13/2024 6:48 AM EDT) Glucose, Plasma 89 74 - 99 mg/dL 11/13/2024 7:24 AM EDT [facility] BUN, Plasma 9 7 - 21 mg/dL 11/13/2024 7:24 AM EDT [facility] Creatinine, Plasma 0.85 0.60 - 1.10 mg/dL 11/13/2024 7:24 AM EDT [facility] BUN/Creatinine Ratio 11 11/13/2024 7:24 AM EDT [facility] Sodium, Plasma 141 136 - 145 mmol/L 11/13/2024 7:24 AM EDT [facility] Potassium, Plasma 3.9 3.6 - 4.9 mmol/L 11/13/2024 7:24 AM EDT [facility] Chloride, Plasma 109(H) 97 - 107 mmol/L 11/13/2024 7:24 AM EDT [facility] CO2, Plasma 25 22 - 29 mmol/L 11/13/2024 7:24 AM EDT [facility] Anion Gap 7 6 - 16 mmol/L 11/13/2024 7:24 AM EDT [facility] Total Calcium, Plasma 8.4(L) 8.9 - 10.2 mg/dL 11/13/2024 7:24 AM EDT [facility] eGFRcr 98.3 mL/min/1.7 3m*2 11/13/2024 7:24 AM EDT [facility] Comment:Reported eGFRcr in m L/min/1.73m2 is based the CKD-EPI 2020 equation that does not use a race coefficient. Blood Venous blood specimen / Unknown Venipuncture / Unknown 11/13/2024 6:48 AM EDT 11/13/2024 6:57 AM EDT us Katie GARDNER LAB BLOOD ORDERABLES Final Resu lt [facility] [address] [place] [address] * MR Cervical Spine wo IV Contrast [...] MD on 11/13/2024 4:17 PM Suha Leach ROLLWAY WORKER IMG MRI PROCEDURES Final R esult * (ABNORMAL) OXYCODONE CONFIRMATION,URINE (11/12/2024 8:06 PM EDT) Oxycodone 655(H) <50 ng/mL 11/14/2024 6:20 PM EDT [facility] Oxymorphone <50 <50 ng/mL 11/14/2024 6:20 PM EDT [facility] Oxymorphone Glucuronide 148(H) <50 ng/mL 11/14/2024 6:20 PM EDT [facility] Urine Urine specimen obtained by clean catch procedure / Unknown Non-blood Collection / Unknown 11/12/2024 8:06 PM EDT 11/12/2024 8:18 PM EDT Narrative [facility] - 11/14/2024 6:20 PM EDT Test performed by LC-MS/MS at the [facility]. This test was developed and its performance characteristics determined by [facility]. It has not been cleared or approved by the FDA. The laboratory is regulated under CLIA as qualified to perform high-complexity testing. This test is used for clinical purposes. us Mac Marin MD LAB URINE ORDERABLES Final Result [facility] [address] [place] [address] * (ABNORMAL) Opiates Confirm Urine (11/12/2024 8:06 PM EDT) Codeine <50 <50 ng/mL 11/14/2024 6:20 PM EDT [facility] Codeine Glucuronide <50 <50 ng/mL 11/14/2024 6:20 PM EDT [facility] Desmethyl Tramadol <50 <50 ng/mL 11/14/2024 6:20 PM EDT [facility] EDDP - Methadone Metabolite <50 <50 ng/mL 11/14/2024 6:20 PM EDT [facility] Hydrocodone <50 <50 ng/mL 11/14/2024 6:20 PM EDT [facility] Hydromorphone <50 <50 ng/mL 11/14/2024 6:20 PM EDT [facility] Hydromorphone Glucuronide <50 <50 ng/mL 11/14/2024 6:20 PM EDT [facility] Comment:Metabolite of Hydrom orphone Meperidine <50 <50 ng/mL 11/14/2024 6:20 PM EDT [facility] Methadone <50 <50 ng/mL 11/14/2024 6:20 PM EDT [facility] 6 Monoacetyl morphine <10 <10 ng/mL 11/14/2024 6:20 PM EDT [facility] Morphine 660(H) <50 ng/mL 11/14/2024 6:20 PM EDT [facility] Morphine Glucuronide >1,000(H) <50 ng/mL 11/14/2024 6:20 PM EDT [facility] Comment:Metabolite of Morphi ne Naloxone <50 <50 ng/mL 11/14/2024 6:20 PM EDT [facility] Naloxone Glucuronide <50 <50 ng/mL 11/14/2024 6:20 PM EDT [facility] Comment:Metabolite of Naloxo ne Normeperidine <50 <50 ng/mL 11/14/2024 6:20 PM EDT [facility] Tramadol <50 <50 ng/mL 11/14/2024 6:20 PM EDT [facility] Urine Urine specimen obtained by clean catch procedure / Unknown Non-blood Collection / Unknown 11/12/2024 8:06 PM EDT 11/12/2024 8:18 PM EDT [facility] - 11/14/2024 6:20 PM EDT Drug analysis is confirmed by LC-MS/MS (LC Tandem Mass Spectrometry) on Urine specimens. This test was developed and its performance characteristics determined by [facility]. It has not been cleared or approved by the FDA. The laboratory is regulated under CLIA as qualified to perform high-complexity testing. This test is used for clinical purposes. Testing is performed at the [facility], [facility]. us Mac Marin MD LAB URINE ORDERABLES Final Result [facility] [address] [place] [address] * Drug Abuse Screen, Urine (11/12/2024 8:06 PM EDT) Amphetamine Screen Urine Negative Cutoff: 500 ng/mL 11/12/2024 8:56 PM EDT [facility] Benzodiazepines Screen Urine Negative Cutoff: 200 ng/mL 11/12/2024 8:56 PM EDT [facility] Cannabinoid Screen Urine Negative Cutoff: 50 ng/mL 11/12/2024 8:56 PM EDT [facility] Cocaine Screen Urine Negative Cutoff: 300 ng/mL 11/12/2024 8:56 PM EDT [facility] Barbiturate Screen Urine Negative Cutoff: 200 ng/mL 11/12/2024 8:56 PM EDT [facility] Opiate Screen Urine Presumptive positive. Confirmation by LC-MS/MS to follow. Cutoff: 300 ng/mL 11/12/2024 8:56 PM EDT [facility] Methadone Screen Urine Negative Cutoff: 300 ng/mL 11/12/2024 8:56 PM EDT [facility] Buprenorphine Screen Urine Negative Cutoff: 10 ng/mL 11/12/2024 8:56 PM EDT [facility] Fentanyl Screen Urine Presumptive positive. Confirmation by LC-MS/MS to follow. Cutoff: 1 ng/mL 11/12/2024 8:56 PM EDT [facility] Oxycodone Screen Urine Presumptive positive. Confirmation by LC-MS/MS to follow. Cutoff: 100 ng/mL 11/12/2024 8:56 PM EDT [facility] Urine Urine specimen obtained by clean catch procedure / Unknown Non-blood Collection / Unknown 11/12/2024 8:06 PM EDT 11/12/2024 8:18 PM EDT Mac Marin MD LAB URINE ORDERABLES Final Result Performing Organization Address [facility] Co de Phone Number [facility] [address] [place] [address] * (ABNORMAL) Fentanyl Urine Confirm (11/12/2024 8:06 PM EDT) Fentanyl 21(H) <1 ng/mL 11/14/2024 6:20 PM EDT [facility] Norfentanyl 83(H) <2 ng/mL 11/14/2024 6:20 PM EDT [facility] Urine Urine specimen obtained by clean catch procedure / Unknown Non-blood Collection / Unknown 11/12/2024 8:06 PM EDT 11/12/2024 8:18 PM EDT Narrative [facility] - 11/14/2024 6:20 PM EDT Drug analysis is confirmed by LC-MS/MS (LC Tandem Mass Spectrometry) on Urine specimens. This test was developed and its performance characteristics determined by [facility]. It has not been cleared or approved by the FDA. The laboratory is regulated under CLIA as qualified to perform high-complexity testing. This test is used for clinical purposes. Testing is performed at the [facility], [facility]. Mac Marin MD LAB URINE ORDERABLES Final Result Performing Organization Address [facility] Co de Phone Number [facility] [address] [place] [address] * Urinalysis with reflex microscopic (Culture NOT Included) (11/12/2024 6:15 PM EDT) Color, Urine Yellow LAB URINALYSIS - AUTOMATED METHOD 11/12/2024 6:30 PM EDT [facility] Clarity, Urine Clear LAB URINALYSIS - AUTOMATED METHOD 11/12/2024 6:30 PM EDT [facility] Spec [place], Urine 1.010 1.005 - 1.030 LAB URINALYSIS - AUTOMATED METHOD 11/12/2024 6:30 PM EDT [facility] pH, Urine 6.0 5.0 - 8.0 LAB URINALYSIS - AUTOMATED METHOD 11/12/2024 6:30 PM EDT [facility] Protein, Urine Negative Negative mg/dL LAB URINALYSIS - AUTOMATED METHOD 11/12/2024 6:30 PM EDT [facility] Glucose, Urine Negative Negative mg/dL LAB URINALYSIS - AUTOMATED METHOD 11/12/2024 6:30 PM EDT [facility] Ketones, Urine Negative Negative mg/dL LAB URINALYSIS - AUTOMATED METHOD 11/12/2024 6:30 PM EDT [facility] Blood, Urine Negative Negative LAB URINALYSIS - AUTOMATED METHOD 11/12/2024 6:30 PM EDT [facility] Bilirubin, Urine Negative Negative LAB URINALYSIS - AUTOMATED METHOD 11/12/2024 6:30 PM EDT [facility] Urobilinogen, Urine 0.2 0.2 to 1.0 mg/dL LAB URINALYSIS - AUTOMATED METHOD 11/12/2024 6:30 PM EDT [facility] Leukocytes, Urine Negative Negative LAB URINALYSIS - AUTOMATED METHOD 11/12/2024 6:30 PM EDT [facility] Nitrite, Urine Negative Negative LAB URINALYSIS - AUTOMATED METHOD 11/12/2024 6:30 PM EDT [facility] Urine Urine specimen obtained by clean catch procedure / Unknown Non-blood Collection / Unknown 11/12/2024 6:15 PM EDT 11/12/2024 6:22 PM EDT us Mac Marin MD LAB URINE ORDERABLES Final Result [facility] [address] [place] [address] * CT Bony Pelvis (11/12/2024 3:05 PM EDT) Anatomical Region Laterality Modality Pelvis Computed Tomogra phy Addenda Addendum by Jsoephine Aaron MD on 11/30/2024 9:04 AM EDT [...] Total DLP (Dose-Length Product): 3617.62 mGy.cm (accession [id number]), 3617.62 mGy.cm (accession [id number]), 3617.62 mGy.cm (accession [id number]), 3617.62 mGy.cm (accession [id number]), 3617.62 mGy.cm (accession [id number]), 3617.62 mGy.cm (accession [id number]). Please note: The reported value represents the [...] Total DLP (Dose-Length Product): 3617.62 mGy.cm (accession [id number]),3617.62 mGy.cm (accession [id number]), 3617.62 mGy.cm (accession [id number]),3617.62 mGy.cm (accession [id number]), 3617.62 mGy.cm (accession [id number]),3617.62 mGy.cm (accession [id number]). Please note: The reported valuerepresents the total [...] on 11/12/2024 4:01 PM Terri Gu APRN [employer] CT PROCEDURES Edited R esult - Final [...] Total DLP (Dose-Length Product): 3617.62 mGy.cm (accession [id number]), 3617.62 mGy.cm (accession [id number]), 3617.62 mGy.cm (accession [id number]), 3617.62 mGy.cm (accession [id number]), 3617.62 mGy.cm (accession [id number]), 3617.62 mGy.cm (accession [id number]). Please note: The reported value represents the [...] Total DLP (Dose-Length Product): 3617.62 mGy.cm (accession [id number]),3617.62 mGy.cm (accession [id number]), 3617.62 mGy.cm (accession [id number]),3617.62 mGy.cm (accession [id number]), 3617.62 mGy.cm (accession [id number]),3617.62 mGy.cm (accession [id number]). Please note: The reported valuerepresents the total [...] Aaron MD on 11/12/2024 4:01 PM Terri Grant Gu [employer] WORKER IMG CT PROCEDURES Edited R esult - [...] Total DLP (Dose-Length Product): 3617.62 mGy.cm (accession [id number]), 3617.62 mGy.cm (accession [id number]), 3617.62 mGy.cm (accession [id number]), 3617.62 mGy.cm (accession [id number]), 3617.62 mGy.cm (accession [id number]), 3617.62 mGy.cm (accession [id number]). Please note: The reported value represents the [...] Total DLP (Dose-Length Product): 3617.62 mGy.cm (accession [id number]),3617.62 mGy.cm (accession [id number]), 3617.62 mGy.cm (accession [id number]),3617.62 mGy.cm (accession [id number]), 3617.62 mGy.cm (accession [id number]),3617.62 mGy.cm (accession [id number]). Please note: The reported valuerepresents the total [...] MD on 11/12/2024 4:01 PM Terri Gu [employer] WORKER IMG CT PROCEDURES Edited R esult - [...] Total DLP (Dose-Length Product): 3617.62 mGy.cm (accession [id number]), 3617.62 mGy.cm (accession [id number]), 3617.62 mGy.cm (accession [id number]), 3617.62 mGy.cm (accession [id number]), 3617.62 mGy.cm (accession [id number]), 3617.62 mGy.cm (accession [id number]). Please note: The reported value represents the [...] Total DLP (Dose-Length Product): 3617.62 mGy.cm (accession [id number]),3617.62 mGy.cm (accession [id number]), 3617.62 mGy.cm (accession [id number]),3617.62 mGy.cm (accession [id number]), 3617.62 mGy.cm (accession [id number]),3617.62 mGy.cm (accession [id number]). Please note: The reported valuerepresents the total [...] 3:34 PM Final report signed by Josephine aAron MD on 11/12/2024 4:01 PM Terri Gu [employer] WORK[employer] IMG CT PROCEDURES Edited R esult - [...] Total DLP (Dose-Length Product): 3617.62 mGy.cm (accession [id number]), 3617.62 mGy.cm (accession [id number]), 3617.62 mGy.cm (accession [id number]), 3617.62 mGy.cm (accession [id number]), 3617.62 mGy.cm (accession [id number]), 3617.62 mGy.cm (accession [id number]). Please note: The reported value represents the [...] Total DLP (Dose-Length Product): 3617.62 mGy.cm (accession [id number]),3617.62 mGy.cm (accession [id number]), 3617.62 mGy.cm (accession [id number]),3617.62 mGy.cm (accession [id number]), 3617.62 mGy.cm (accession [id number]),3617.62 mGy.cm (accession [id number]). Please note: The reported valuerepresents the total [...] on 11/12/2024 4:01 PM us Terri Gu [employer]LL[employer] WORKER IMG CT PROCEDURES Edited R esult - [...] Total DLP (Dose-Length Product): 3617.62 mGy.cm (accession [id number]), 3617.62 mGy.cm (accession [id number]), 3617.62 mGy.cm (accession [id number]), 3617.62 mGy.cm (accession [id number]), 3617.62 mGy.cm (accession [id number]), 3617.62 mGy.cm (accession [id number]). Please note: The reported value represents the [...] Total DLP (Dose-Length Product): 3617.62 mGy.cm (accession [id number]),3617.62 mGy.cm (accession [id number]), 3617.62 mGy.cm (accession [id number]),3617.62 mGy.cm (accession [id number]), 3617.62 mGy.cm (accession [id number]),3617.62 mGy.cm (accession [id number]). Please note: The reported valuerepresents the total [...] MD on 11/12/2024 4:01 PM Terri Gu ROLLWAY WORKER [employer] [facility] CT PROCEDURES Edited R esult - Final [...] Total DLP (Dose-Length Product): 3617.62 mGy.cm (accession [id number]), 3617.62 mGy.cm (accession [id number]), 3617.62 mGy.cm (accession [id number]), 3617.62 mGy.cm (accession [id number]). Please note: The reported value represents the [...] Total DLP (Dose-Length Product): 3617.62 mGy.cm (accession [id number]),3617.62 mGy.cm (accession [id number]), 3617.62 mGy.cm (accession [id number]),3617.62 mGy.cm (accession [id number]). Please note: The reported valuerepresents the total [...] MD on 11/12/2024 3:37 PM Terri Gu ROLLWAY WORKER IM CT PROCEDURES Final Re sult * CT [...] Total DLP (Dose-Length Product): 3617.62 mGy.cm (accession [id number]), 3617.62 mGy.cm (accession [id number]), 3617.62 mGy.cm (accession [id number]), 3617.62 mGy.cm (accession [id number]). Please note: The reported value represents the [...] Total DLP (Dose-Length Product): 3617.62 mGy.cm (accession [id number]),3617.62 mGy.cm (accession [id number]), 3617.62 mGy.cm (accession [id number]),3617.62 mGy.cm (accession [id number]). Please note: The reported valuerepresents the total [...] MD on 11/12/2024 3:37 PM Terri Gu [employer] WORKER IMG CT PROCEDURES Final Re sult * [...] Total DLP (Dose-Length Product): 3617.62 mGy.cm (accession [id number]), 3617.62 mGy.cm (accession [id number]), 3617.62 mGy.cm (accession [id number]), 3617.62 mGy.cm (accession [id number]). Please note: The reported value represents the [...] Total DLP (Dose-Length Product): 3617.62 mGy.cm (accession [id number]),3617.62 mGy.cm (accession [id number]), 3617.62 mGy.cm (accession [id number]),3617.62 mGy.cm (accession [id number]). Please note: The reported valuerepresents the total [...] MD on 11/12/2024 3:37 PM Terri Gu ROLLWAY WORKER IMG CT PROCEDURES Final Re sult * CT Angio Head (11/12/2024 3:05 PM EDT) Anatomical Region Laterality Modality [place] Computed Tomogr aphy Impressions 11/12/2024 [...] Total DLP (Dose-Length Product): 3617.62 mGy.cm (accession [id number]), 3617.62 mGy.cm (accession [id number]), 3617.62 mGy.cm (accession [id number]), 3617.62 mGy.cm (accession [id number]). Please note: The reported value represents the [...] Total DLP (Dose-Length Product): 3617.62 mGy.cm (accession [id number]),3617.62 mGy.cm (accession [id number]), 3617.62 mGy.cm (accession [id number]),3617.62 mGy.cm (accession [id number]). Please note: The reported valuerepresents the total [...] MD on 11/12/2024 3:37 PM Terri Gu ROLLWAY WORKER IMG CT PROCEDURES Final Re sult * [...] Elias Jones MD on 11/12/2024 2:53 PM Mac Marin MD IMG XR PROCEDURES Final [...] LAB HEMATOLOGY METHOD 11/12/2024 2:44 PM EDT [facility] Bicarbonate, Calculated, Venous 19(L) 22 - 26 mmol/L LAB HEMATOLOGY METHOD 11/12/2024 2:44 PM EDT [facility] Base Excess, Venous -2.4(L) -2.0 - 3.0 mmol/L LAB HEMATOLOGY METHOD 11/12/2024 2:44 PM EDT [facility] Lactate, Venous, Whole Blood 5.2(H) 0.5 - 2.2 mmol/L LAB HEMATOLOGY METHOD 11/12/2024 2:44 PM EDT [facility] Blood Venous blood specimen / Unknown Venipuncture / Unknown 11/12/2024 2:39 PM EDT 11/12/2024 2:43 PM EDT Mac Marin MD LAB BLOOD ORDERABLES Final Result Performing Organization Address City/[facility]/ZIP Co de Phone Number [facility] [address] [place] [address] * Gold Top (11/12/2024 2:39 PM EDT) Only the most recent of2 resultswithin the time period is included. Extra Hold for add-ons 11/12/2024 5:01 PM EDT [facility] Comment:Auto resulted. Blood Venous blood specimen / Unknown 11/12/2024 2:39 PM EDT 11/12/2024 2:44 PM EDT us Mac Marin MD LAB BLOOD ORDERABLES Final Result Performing Organization Address City/[facility]/ZIP Co de Phone Number [facility] [address] [place] [address] * Light Green Top (11/12/2024 2:39 PM EDT) Extra Hold for add-ons 11/12/2024 5:01 PM EDT [facility] Comment:Auto resulted. Blood Venous blood specimen / Unknown 11/12/2024 2:39 PM EDT 11/12/2024 2:44 PM EDT us Mac Marin MD LAB BLOOD ORDERABLES Final Result Performing Organization Address City/[facility]/ZIP Co de Phone Number [facility] [address] [place] [address] * Ethyl Alcohol Plasma (11/12/2024 2:39 PM EDT) Ethanol Plasma <10 <10 mg/dL 11/12/2024 3:11 PM EDT [facility] Blood Venous blood specimen / Unknown Venipuncture / Unknown 11/12/2024 2:39 PM EDT 11/12/2024 2:43 PM EDT Narrative [facility] - 11/12/2024 3:11 PM EDT Enzymatic Assay: Performed on Valerie Lino. Mac Marin MD LAB BLOOD ORDERABLES Final Result Performing Organization Address [facility] Co de Phone Number [facility] [address] [place] [address] * TEG Global Hemostasis with Lysis (11/12/2024 2:39 PM EDT) R, Lysis 6.2 4.6 - 9.1 min 11/12/2024 3:53 PM EDT [facility] MA, Rapid, Lysis 61.6 52.0 - 70.0 mm 11/12/2024 3:53 PM EDT [facility] MA, Fibrinogen, Lysis 16.8 15.0 - 32.0 mm 11/12/2024 3:53 PM EDT [facility] LY30 0.9 0.0 - 2.6 % 11/12/2024 3:53 PM EDT [facility] Blood Venous blood specimen / Unknown Venipuncture / Unknown 11/12/2024 2:39 PM EDT 11/12/2024 2:54 PM EDT Result [facility] Mac Marin MD LAB BLOOD ORDERABLES Final Result Performing Organization Address City/[facility]/ZIP [place] [address] * APTT (PTT) (11/12/2024 2:39 PM EDT) aPTT 25 25 - 35 sec 11/12/2024 3:16 PM EDT [facility] Blood Venous blood specimen / Unknown Venipuncture / Unknown 11/12/2024 2:39 PM EDT 11/12/2024 2:43 PM EDT Mac Marin MD LAB BLOOD ORDERABLES Final Result Performing Organization Address City/[facility]/ZIP Co de Phone Number [facility] [address] [place] [address] * PT-INR (11/12/2024 2:39 PM EDT) Pathologist [facility] Prothrombin Time 13.8 12.0 - 14.3 sec 11/12/2024 3:15 PM EDT [facility] INR 1.1 0.9 - 1.1 11/12/2024 3:15 PM EDT [facility] Blood Venous blood specimen / Unknown Venipuncture / Unknown 11/12/2024 2:39 PM EDT 11/12/2024 2:43 PM EDT Narrative [facility] - 11/12/2024 3:15 PM EDT OPTIMAL INR RANGES FOR PATIENT ON ORAL ANTICOAGULANT THERAPY Prevention of venous thromboembolism INR 2.0 to 3.0 In patients with heart disease: Atrial fibrillation INR 2.0 to 3.0 Valvular heart disease INR 2.0 to 3.0 Tissue heart valves INR 2.0 to 3.0 Mechanical prosthetic valves INR 2.5 to 3.5 Prevention of recurrent [place] INR 2.5 to 3.5 Mac Marin MD LAB BLOOD ORDERABLES Final Result Performing Organization Address City/[facility] Co de Phone Number [facility] [address] [place] [address] * (ABNORMAL) CBC w/o diff (11/12/2024 2:39 PM EDT) WBC Count 7.23 3.70 - 10.30 10*3/uL LAB HEMATOLOGY METHOD 11/12/2024 2:46 PM EDT [facility] RBC Count 4.67 3.90 - 5.20 10*6/uL LAB HEMATOLOGY METHOD 11/12/2024 2:46 PM EDT [facility] HGB 14.5 11.2 - 15.7 g/dL LAB HEMATOLOGY METHOD 11/12/2024 2:46 PM EDT [facility] HCT 40.1 34.0 - 45.0 % LAB HEMATOLOGY METHOD 11/12/2024 2:46 PM EDT [facility] Platelet Count 267 155 - 369 10*3/uL LAB HEMATOLOGY METHOD 11/12/2024 2:46 PM EDT [facility] MCV 86 79 - 98 fL LAB HEMATOLOGY METHOD 11/12/2024 2:46 PM EDT [facility] MCH 31.0 26.0 - 32.0 pg LAB HEMATOLOGY METHOD 11/12/2024 2:46 PM EDT [facility] MCHC 36.2(H) 30.7 - 35.5 g/dL LAB HEMATOLOGY METHOD 11/12/2024 2:46 PM EDT [facility] RDW 11.9 11.5 - 14.5 % LAB HEMATOLOGY METHOD 11/12/2024 2:46 PM EDT [facility] MPV 10.3 8.8 - 12.5 fL LAB HEMATOLOGY METHOD 11/12/2024 2:46 PM EDT [facility] nRBC 0.0 <=0.0 per 100 WBCs LAB HEMATOLOGY METHOD 11/12/2024 2:46 PM EDT [facility] Blood Venous blood specimen / Unknown Venipuncture / Unknown 11/12/2024 2:39 PM EDT 11/12/2024 2:43 PM EDT Mac Marin MD LAB BLOOD ORDERABLES Final Result Performing Organization Address City/State/[facility] Co de Phone Number [facility] [address] [place] [address] * Type and Screen (11/12/2024 2:39 PM EDT) ABO/Rh A Positive 11/12/2024 2:11 PM EDT [facility] Antibody Screen Negative 11/12/2024 2:11 PM EDT [facility] Specimen Expiration 2024 23:59 11/12/2024 2:11 PM EDT [facility] Blood Venous blood specimen / Unknown Venipuncture / Unknown 11/12/2024 2:39 PM EDT 11/12/2024 2:49 PM EDT us Mac Marin MD LAB BLOOD BANK TEST ORDERA BLES Final Result BLOOD BANK [address] [place] [address], * Test Qualitative Plasma (11/12/2024 2:39 PM EDT) [facility] Test Negative Negative 11/12/2024 3:21 PM EDT [facility] Blood Venous blood specimen / Unknown Venipuncture / Unknown 11/12/2024 2:39 PM EDT 11/12/2024 2:43 PM EDT Narrative [facility] - 11/12/2024 3:21 PM EDT Reference Range: Males and non- females: Negative. us Mac Marin MD LAB BLOOD ORDERABLES Final Result Performing Organization Address City/[facility]/ZIP Co de Phone Number [facility] [address] [place] [address] * (ABNORMAL) CMP (11/12/2024 2:39 PM EDT) [facility] Glucose, Plasma 110(H) 74 - 99 mg/dL 11/12/2024 3:21 PM EDT [facility] BUN, Plasma 12 7 - 21 mg/dL 11/12/2024 3:21 PM EDT [facility] Creatinine, Plasma 0.80 0.60 - 1.10 mg/dL 11/12/2024 3:21 PM EDT [facility] BUN/Creatinine Ratio 15 11/12/2024 3:21 PM EDT [facility] Sodium, Plasma 138 136 - 145 mmol/L 11/12/2024 3:21 PM EDT [facility] Potassium, Plasma 3.1(L) 3.6 - 4.9 mmol/L 11/12/2024 3:21 PM EDT [facility] Chloride, Plasma 105 97 - 107 mmol/L 11/12/2024 3:21 PM EDT [facility] CO2, Plasma 15(L) 22 - 29 mmol/L 11/12/2024 3:21 PM EDT [facility] Anion Gap 18(H) 6 - 16 mmol/L 11/12/2024 3:21 PM EDT [facility] Total Calcium, Plasma 9.1 8.9 - 10.2 mg/dL 11/12/2024 3:21 PM EDT [facility] Total Protein 6.9 6.3 - 7.9 g/dL 11/12/2024 3:21 PM EDT [facility] Albumin, Plasma 4.2 3.5 - 5.2 g/dL 11/12/2024 3:21 PM EDT [facility] AST, Plasma 24 10 - 35 U/L 11/12/2024 3:21 PM EDT [facility] ALT, Plasma 14 10 - 35 U/L 11/12/2024 3:21 PM EDT [facility] Alkaline Phosphatase, Plasma 59 35 - 104 U/L 11/12/2024 3:21 PM EDT [facility] Total Bilirubin, Plasma 0.2 0.2 - 1.1 mg/dL 11/12/2024 3:21 PM EDT [facility] eGFRcr 105.7 mL/min/1.7 3m*2 11/12/2024 3:21 PM EDT [facility] Comment:Reported eGFRcr in m L/min/1.73m2 is based the CKD-EPI 2020 equation that does not use a race coefficient. Blood Venous blood specimen / Unknown Venipuncture / Unknown 11/12/2024 2:39 PM EDT 11/12/2024 2:43 PM EDT us Mac Marin MD LAB BLOOD ORDERABLES Final Result [facility] [address] [place] [address] from Last 3 Months Insurance [facility] [employer] [facility] Advance Directives * Full Code (Latest Code Status on File) Date Activated Date Inactivated Comments 11/12/2024 3:37 PM 11/14/2024 3:09 PM Question Answer Comments I have reviewed the capacity from the link above and, if needed, have updated to appropriate status: Yes Care Teams Candy Roller Relationship Specialty Start Date End Date Pcp, No [address] [place] [address] PCP - General Family Medicine 11/12/24 Nirmala Johnston APRN [address] [place] [address] 11/12/24
--- OUTSIDE RECORDS SUMMARY | 2024-12-20 15:22 | XMS_ITS | Encounter Summary ---
Author Organization Healthcare Address [address] [place] [address] Care Team Providers Care Encephalographer Name Role Phone Pcp, No Primary Care Provider Unavailabl e Nirmala Johnston LOCKER ROOM ATTENDANT Unavailable [phone] Encounter Details Date Type Department Care Team (Latest Contact Info) Description 12/14/2024 Travel Social History Tobacco Use Types Packs/Day [...] any time in the past 12 m [facility], were you homeless or living in a half-way (including now)? No 11/14/2024 Utilities Answer Date [...] as of this encounter Functional Status * Over the [...] energy Not at all 12/14/2024 10:45 AM DALYT Sandhya Calvillo Poor appetite or overeating Not [...] way Not at all 12/14/2024 10:45 AM Sandhya Jimenez Patient Health Questionnaire-9 Score 0 12/14/2024 10:45 AM DALYT Sandhya Dlol * Calculated C-SSRS Risk Score (Lifetime/Recent) Answer Date of Assessment Author No Risk Indicated 12/14/2024 10:45 AM EDT Sandhya Aquino * If you checked off any problems [...] (Past 1 Month) No 12/14/2024 10:45 AM EDT Sandhya Calvillo 2. Non-Specific Active Suicidal Thoughts (Past 1 Month) No 12/14/2024 10:45 AM EDT Sandhya Calvillo 6. Suicidal Behavior (Lifetime) No 12/14/2024 10:45 AM EDT Sandhya Calvillo documented as of this encounter Plan of Treatment Upcoming Encounters Date Type Department Care Team (Late st Contact Info) Description 01/09/2025 11:00 AM EDT Office Visit [facility] [address] [place] [place] [address] Jadiel Montes, [address] [place] [address] documented as of this encounter Visit Diagnoses [...] documented as of this encounter Care Teams Encephalographer Relationship Specialty Start Date End Date Pcp, No [address] [place] [address] PCP - General Family Medicine 11/12/24 Nirmala Johnston APRN [address] [place] [address] 11/12/24 documented as of this encounter
--- OUTSIDE RECORDS SUMMARY | 2024-12-20 15:22 | XMS_ITS | Encounter Summary ---
Author Organization Healthcare Address [address] [place] [address] Care Team Providers Care Sap Pi Architect Name Role Phone Pcp, No Primary Care Provider Unavailabl e Nirmala Johnston DIRECTOR PRODUCT MANAGEMENT Unavailable [phone] Reason for Visit * Reason Onset Date Comments HCN - Patient Message 12/20/2024 Encounter Details Date Type Department Care Team (Late st Contact Info) Description 12/20/2024 Telephone Physical [facility] & Rehabilitation [facility] at [facility] [address] [facility] [place] [place] [address] Jadiel Montes, [address] [place] [address] HCN - Patient Message Social History Tobacco Use Types Packs/Day Years [...] any time in the past 12 m [facility], were you homeless or living in a senior care (including now)? No 11/14/2024 Utilities Answer Date [...] on file documented as of this encounter Miscellaneous Notes * Telephone Encounter - Angel Rita Renae - 12/20/2024 8:15 AM EDT Paperwork/Documentation Request Patient Name: Cierra Aguilar Type: PT Orders and last clinic note Due Date: unknown date Send To: [facility] at [phone] Best contact number: Other: [phone] Optimal time of day to reach caller: ANYTIME Additional comments/information from caller: None Note: Please do not reply to this message. Follow-up communication and further actions as a result of this message need to be communicated with the patient directly, if the patient is not active onMyChart. If the patient is active on MyChart, they will receive notification of the communication/outcome via [employer]. documented in this encounter Plan of Treatment Upcoming Encounters Date Type Department Care Team (Late st Contact Info) Description 01/09/2025 11:00 AM EDT Office Visit [facility] [address] [facility] [place] [place] [address] Jadiel Montes, [address] [place] [address] documented as of this encounter [...] documented as of this encounter Care Teams Sap Pi Architect Relationship Specialty Start Date End Date Pcp, Melinda [address] [place] [address] PCP - General Family Medicine 11/12/24 Nirmala Johnston APRN [address] [place] [address] 11/12/24 documented as of this encounter
--- OUTSIDE RECORDS SUMMARY | 2024-12-20 15:22 | XMS_ITS | Encounter Summary ---
Author Organization [facility] ystem Address [address] [place] [address] Care Team Providers Care Manager [place] Name Role Phone Swathi Todd APRN Primary Care Provider [phone] Encounter Details Date Type Department Care Team (Late st Contact Info) Description 08/16/2024 Results Follow-Up [facility] [address] [place] [address] Leonidas Gomez MD [address] [place] [address] Social History Tobacco Use Types Packs/Day Years [...] documented as of this encounter Care Teams Manager [place] Relationship Specialty Start Date End Date Swathi Todd APRN [address] [place] [address] PCP - General Nurse Practitioner 07/21/24 documented as of this encounter
--- OUTSIDE RECORDS SUMMARY | 2024-12-20 15:22 | XMS_ITS | Encounter Summary ---
Author Organization Healthcare Address [address] [place] [address] Care Team Providers Care Hogshead Filler Name Role Phone Pcp, No Primary Care Provider Unavailabl e Nirmala Johnston TEST MANAGER Unavailable [phone] Encounter Details Date Type Department Care [...] any time in the past 12 m [facility], were you homeless or living in a skilled nursing (including now)? No 11/14/2024 Utilities Answer Date [...] Risk Indicated 11/13/2024 8:00 PM EDT Jarvis Donald, CARSON * Question Answer Date of Assessment Author [...] Visit Physical Medicine & Rehabilitation Clinic at [facility] [address] [address] Jadiel Montes DO [address] [place] [address] documented as of this encounter [...] documented as of this encounter Care Teams Hogshead Filler Relationship Specialty Start Date End Date Pcp, No [address] [place] [address] PCP - General Family Medicine 11/12/24 Nirmala Johnston APRN [address] [place] [address] 11/12/24 documented as of this encounter
--- OUTSIDE RECORDS SUMMARY | 2024-12-20 15:22 | XMS_ITS | Clinical Summary ---
Author Organization [facility] Address [address] [place] [address] Care Team Providers Care Siding Installer Name Role Phone Swathi Todd APRN Primary Care Provider [phone] Allergies Active Allergy Reactions Criticality Noted Date [...] C SCREENING 05/28/2023 COVID-19 Vaccine ( season) 2024 05/02/2020, 04/04/2020 INFLUENZA VACCINE 01/04/2025 01/15/2022, , [...] Reference Lab Report [facility] [address] [place] [address] or [phone] Farnko Arevalo M.D., Flight Operations Specialist PATIENT NAME LABORATORY [address]. [address]ON[address]ALEZ [id number] AGE SEX SSN CLIENT REF # [id number] 24 2000 F [id number] [facility] LAMIN ALFARO REQUESTING M.D. ATTENDING [place] [address] SANDER AMBROSIO DATE COLLECTED DATE RECEIVED DATE [...] by Franko Arevalo M.D., F.C.A.P. at [facility], First To File, [address] [place] [address]. SPECIMEN ADEQUACY: SATISFACTORY FOR EVALUATION Transformation zone [...] of chlamydial and gonococcal disease using the [place] system. DIGITAL EXPERIENCE MANAGER: ANIBAL CHRISTINE (ASCP) REVIEWED, DIAGNOSED AND ELECTRONICALLY SIGNED BY: Franko Arevalo M.D., F.C.A.P. CPT CODES: [id number], [id number], [id number], [id number] 08/16/2024 2:04 PM EDT [facility] ThinPrep Vial Cervix uteri structure / Unknown Collection / Unknown 08/15/2024 2:16 PM EDT 08/15/2024 2:16 PM EDT Sander Ambrosio MD PATHOLOGY/CYTOLOGY ORDER FRANSISCO Final Result [facility]
[address] [place] [address], from Last 3 Months or Most Recently Relevant to Health Maintenance Insurance [facility] [employer] [facility] PPO Member Subscriber Plan / Payer (Ef fective 2022-Present) Name:Cierra Gonzalez Relation to Subscriber:Self Name:EmigdioniloCierra Esteves Payer ID:[id number] (NAIC) Type:Not on file Address: [facility] [id number] [place] [id number] [facility] [employer] [facility] PPO Care Teams Siding Installer Relationship Specialty Start Date End Date Swathi Todd APRN [address] [place] [address] PCP - General Nurse Practitioner 07/21/24
--- OUTSIDE RECORDS SUMMARY | 2024-12-20 15:22 | XMS_ITS | Encounter Summary ---
Author Organization Healthcare Address [address] [place] [address] Care Team Providers Care Senior Trainer Name Role Phone Pcp, No Primary Care Provider Unavailabl e Nirmala Johnston METALIZER Unavailable [phone] Encounter Details Date Type Department Care [...] Visit Physical Medicine & [facility] Clinic at [facility] [address] [place] [address] Jadiel Montes, [address] [place] [address] documented as of this encounter [...] documented as of this encounter Care Teams Senior Trainer Relationship Specialty Start Date End Date Pcp, No [address] [place] [address] PCP - General Family Medicine 11/12/24 Nirmala Johnston APRN [address] [place] [address] 11/12/24 documented as of this encounter
--- NOTE | 2024-12-20 15:37 | XR_ITS ---
FINAL REPORT CLINICAL HISTORY: sacral fracture COMPARISON: None FINDINGS: SACRUM COCCYX 3 views demonstrate no acute fracture or dislocation. The sacral arches are intact. The sacroiliac joints are unremarkable. No soft tissue abnormality is seen. IMPRESSION: No acute process. Reviewed, Interpreted and Dictated by Malik Aiken MD Transcribed by Christi Alanis Authenticated and [facility]
[2024-12-20 17:32] LABS: Albumin Level 4.8 g/dl (3.5-5.0); Chloride 103 mmol/L (98-107); Potassium 4.6 mmoL/L (3.5-5.1); Sodium 138 mmol/L (136-145)
[2024-12-20 17:34] LABS: Alanine Aminotransferase 15 U/L (12-78); Aspartate Amino Transferase 28 U/L (14-36); Bilirubin,Total 0.4 mg/dl (0.2-1.3); Blood Urea Nitrogen 11 mg/dl (7-17); Creatinine,Serum 0.70 mg/dl (0.52-1.04); Estimated Glomerular Filt Rate 102 ml/min (>60); GFR (African American) 123 ML/MIN (>60)
[2024-12-20 17:35] LABS: Albumin/Globulin Ratio 1.7 (1.1-1.8); Alkaline Phosphatase 55 U/L (38-126); Anion Gap 14.6 mEq/L (5-15); Calcium 9.9 mg/dl (8.4-10.2); Carbon Dioxide 25 mmol/L (22.0-30.0); Globulin 2.8 g/dL (1.3-3.2); Glucose 88 mg/dl (74-100); Magnesium 2.0 mg/dl (1.6-2.3); Total Protein,Serum 7.6 g/dl (6.3-8.2)
[2024-12-20 18:26] LABS: Hepatitis C Ab Qual. W/ RFX NEGATIVE (Negative)
== END 2024-12-20 23:59 | disposition home or self-care (01) ==
LOC: LAB 15:19
PROVIDERS: PCP Internal Medicine; Visit Provider Internal Medicine
DX: S32.10XA Unspecified fracture of sacrum, initial encounter for closed fracture (principal); E87.6 Hypokalemia; E87.8 Other disorders of electrolyte and fluid balance, not elsewhere classified; Z11.59 Encounter for screening for other viral diseases; Z11.4 Encounter for screening for human immunodeficiency virus [HIV]; E83.42 Hypomagnesemia
CPT/HCPCS: 36415; 72220; 80053; 83735; 86803; 87389

== ENCOUNTER 2025-02-02 09:36 | Outpatient (CLI) | payer BC, SELFPAY ==
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
[2025-02-02 16:35] LABS: Coronavirus 19, PCR Not Detected (NotDetected); Influenza A, PCR Not Detected (NotDetected); Influenza B, PCR Not Detected (NotDetected)
--- OUTSIDE RECORDS SUMMARY | 2025-02-06 09:43 | XMS_ITS | Encounter Summary ---
Author Organization [facility] yste Address [address] [place] [address] Care Team Providers Care Veneer Glue Spreader Name Role Phone Swathi Todd APRN Primary Care Provider [phone] Encounter Details Date Type Department Care Team (Late st Contact Info) Description 08/16/2024 Results Follow-Up [facility] [address] [place] [address] Leonidas Gomez MD [address] [place] [address] Social History Tobacco Use Types Packs/Day Years [...] documented as of this encounter Care Teams Veneer Glue Spreader Relationship Specialty Start Date End Date Swathi Todd APRN [address] [place] [address] PCP - General Nurse Practitioner 07/21/24 documented as of this encounter
--- OUTSIDE RECORDS SUMMARY | 2025-02-06 09:43 | XMS_ITS | Encounter Summary ---
Author Organization Healthcare Address [address] [place] [address] Care Team Providers Care Legal Recovery Specialist Name Role Phone Pcp, No Primary Care Provider Unavailabl e Nirmala Johnston FIELD SUPERINTENDENT Unavailable [phone] Sergey Ramon DO Primary Care Provider [phone] Reason for Visit * Reason Onset Date Comments HCN - Patient Message 01/02/2025 HCN Status Update Call #1 01/02/2025 HCN Status Update Call #2 01/02/2025 Encounter Details Date Type Department Care Team (Late st Contact Info) Description 01/02/2025 Telephone Physical Medicine & Rehabilitation Clinic at [facility] [address] [place] [address] Jadiel Montes, [address] [place] [address] HCN - Patient Message; HCN Status Update Call #1; HCN Status Update Call #2 Social History Tobacco Use Types Packs/Day Years [...] any time in the past 12 m [facility], were you homeless or living in a longterm (including now)? No 11/14/2024 Utilities Answer Date Recorded In the past 12 months has th e [employer], gas, oil, or water [employer] threatened to shut off services in your [...] difficult at all 01/09/2025 10:40 AM EDT Whi Suha man * Question Answer Date of Assessment Author 1. Wish to be (Past 1 Month) No 025 10:40 AM EDT Suha Alcaraz 2. Non-Specific Active Suici segundo Thoughts (Past 1 Month) No 01/09/2025 10:40 AM EDT Franko Alcaraz 6. Suicidal Behavior (Lifetime) No 10:40 AM EDT Suha Alcaraz documented as of this encounter Miscellaneous Notes * Telephone Encounter - Suha Alcaraz - 01/05/2025 8:22 AM EDT Called patient and informed her that we are unable to provide her with a work excuse for 12/31 as she did not have an appt. Advised her to reach out to her PCP. * Telephone Encounter - Delma Gleason - 01/04/2025 9:32 AM EDT Status Update Call #2 2nd call regarding the status of the initial request. Best contact number: [phone] (mobile) Optimal time of day to reach caller: ANYTIME Additional comments/information from caller: patient is requesting a work note today. Note: Please do not reply to this message. Follow-up communication and further actions as a result of this message need to be communicated with the patient directly, if the patient is not active onMyChart. If the patient is active on MyChart, they will receive notification of the communication/outcome via MyChart. * Telephone Encounter - Nevaeh Sanchez - 01/02/2025 4:47 PM EDT Status Update Call #1 1st call regarding the status of the initial request. Best contact number: [phone] (mobile) Optimal time of day to reach caller: ANYTIME Additional comments/information from caller: Patient called to inquire if her work note will be sent to patient via email [email or web address]. Please call to inform when sent, thanks Note: Please do not reply to this message. Follow-up communication and further actions as a result of this message need to be communicated with the patient directly, if the patient is not active onMyChart. If the patient is active on MyChart, they will receive notification of the communication/outcome via MyChart. * Telephone Encounter - Jacqui Handy - 01/02/2025 10:26 AM EDT Paperwork/Documentation Request Patient Name: Cierra Anne Aguilar Type: Work note for 12/31/24 due to migraine Due Date: unknown date Send To: Email to [email or web address] Best contact number: [phone] (mobile) Optimal time of day to reach caller: ANYTIME Additional comments/information from caller: None Note: Please do not reply to this message. Follow-up communication and further actions as a result of this message need to be communicated with the patient directly, if the patient is not active onMyChart. If the patient is active on MyChart, they will receive notification of the communication/outcome via MyChart. documented in this encounter Plan of Treatment Upcoming Encounters Date Type Department Care Team (Late st Contact Info) Description 02/09/2025 11:30 AM EST Office Visit [facility] [address] [facility] [address] [place] [address] Jadiel Montes DO [address] [place] [address] documented as of this encounter [...] documented as of this encounter Care Teams Legal Recovery Specialist Relationship Specialty Start Date End Date Pcp, Mleinda [address] [place] [address] PCP - General Family Medicine 11/12/24 01/03/25 Sergey Ramon DO [address] [place] [address] PCP - General 01/04/25 Nirmala Johnston APRN [address] [place] [address] 11/12/24 documented as of this encounter
--- OUTSIDE RECORDS SUMMARY | 2025-02-06 09:43 | XMS_ITS | Encounter Summary ---
Author Organization Healthcare Address [address] [place] [address] Care Team Providers Care Reports Analyst Name Role Phone Pcp, No Primary Care Provider Unavailabl e Nirmala Johnston EDGE BURNISHER Unavailable [phone] Sergey Ramon DO Primary Care Provider [phone] Reason for Visit * Reason Onset Date Comments HCN - Patient Message 12/20/2024 Encounter Details Date Type Department Care Team (Late st Contact Info) Description 12/20/2024 Telephone Physical Medicine & Rehabilitation Clinic at [facility] [address] [place] [address] Jadiel Montes DO [address] [place] [address] HCN - Patient Message Social [...] any time in the past 12 m [facility], were you homeless or living in a [...] * Telephone Encounter - Suha Alcaraz - 12/23/2024 8:09 AM EDT Information has been faxed to number provided. * Telephone Encounter - Rita Ortiz - 12/20/2024 8:15 AM EDT Paperwork/Documentation Request Patient Name: Cierra Aguilar Type: PT Orders and last clinic note Due Date: unknown date Send To: [facility] at [phone] Best contact number: Other: [phone] Optimal time of day to reach caller: [...] [facility] [address] [facility] [place] [address] Jadiel Montes DO [address] [place] [address] documented as of this encounter [...] documented as of this encounter Care Teams Reports Analyst Relationship Specialty Start Date End Date Pcp, No [address] [place] [address] PCP - General Family Medicine 11/12/24 01/03/25 Sergey Ramon DO [address] [place] [address] PCP - General 01/04/25 Nirmala Johnston APRN [address] [place] [address] 11/12/24 documented as of this encounter
--- OUTSIDE RECORDS SUMMARY | 2025-02-06 09:43 | XMS_ITS | Encounter Summary ---
Author Organization Healthcare Address [address] [place] [address] Care Team Providers Care Cementer Oil Well Name Role Phone Pcp, No Primary Care Provider Unavailabl e Nirmala Johnston ENGINEERING TECHNOLOGY INSTRUCTOR Unavailable [phone] Encounter Details Date Type Department Care Team [...] any time in the past [address] [facility], were you homeless or living in a custodial (including now)? No 11/14/2024 Utilities Answer Date [...] television Not at all 12/14/2024 10:45 AM EDT Sandhya Calvillo Moving or speaking so slowly that other people could have noticed? Or the opposite - being so fidgety or restless that you have been moving around a lot more than usual. Not at all 12/14/2024 10:45 AM EDT Sandhya Calvillo Thoughts that you would be [...] [facility] [address] [place] [address] Jadiel Montes DO [address] [place] [address] documented as of this encounter [...] documented as of this encounter Care Teams Cementer Oil Well Relationship Specialty Start Date End Date Pcp, No [address] [place] [address] PCP - General Family Medicine 11/12/24 01/03/25 Nirmala Johnston APRN [address] [place] [address] 11/12/24 documented as of this encounter
--- OUTSIDE RECORDS SUMMARY | 2025-02-06 09:43 | XMS_ITS | Encounter Summary ---
Author Organization Healthcare Address [address] [place] [address] Care Team Providers Care Fingernail Former Name Role Phone Nirmala Johnston DAMAGE APPRAISER Unavailable [phone] Sergey Ramon DO Primary Care Provider [phone] Encounter Details Date Type Department Care Team (Latest Contact Info) Description 01/09/2025 Travel Social History Tobacco Use Types Packs/Day [...] any time in the past 12 m [facility], were you homeless or living in a long-term (including now)? No 11/14/2024 Utilities Answer Date [...] at all 01/09/2025 10:40 AM EDT Whi kenrickrSuha * Question Answer Date of Assessment Author 1. Wish to be (Past 1 Month) No 025 10:40 AM EDT Suha Alcaraz 2. Non-Specific Active Suici segundo Thoughts (Past 1 Month) No 01/09/2025 10:40 AM EDT Franko Alcaraz 6. Suicidal Behavior (Lifetime) No 10:40 AM EDT Suha Alcaraz documented as of this encounter Plan of Treatment Upcoming Encounters Date Type Department Care Team (Late st Contact Info) Description 02/09/2025 11:30 AM EST Office Visit [facility] at [facility] [address] [place] [address] Jadiel Montes DO [address] [place] [address] documented as of this encounter [...] documented as of this encounter Care Teams Fingernail Former Relationship Specialty Start Date End Date Sergey Ramon DO [address] [place] [address] PCP - General 01/04/25 Nirmala Johnston APRN [address] [place] [address] 11/12/24 documented as of this encounter
--- OUTSIDE RECORDS SUMMARY | 2025-02-06 09:43 | XMS_ITS | Clinical Summary ---
Author Organization [facility] Address [address] [place] [address] Care Team Providers Care Cane Stripper Name Role Phone Nirmala Johnston SALES REPRESENTATIVE [employer] Unavailable [phone] Sergey Ramon DO Primary Care Provider [phone] Allergies Active Allergy Reactions Criticality Noted Date [...] 11/24/19 25 Active amitriptyline (Elavil) 25 MG tabletIndications: Concussion without loss of consciousness, initial encounter,Acute post-traumatic headache, not intractable Take 1 tablet by mouth nightly. 30 tablet 2 12/15/19 25 Active ubrogepant (Ubrelvy) 50 MG tabletIndications: Chronic migraine without aura without status migrainosus, not intractable Take 1 tablet by mouth 1 time as needed for migraine. After 2 hours, a second dose may be taken if needed. Maximum dose: 200 mg in 24-hour period. 30 tablet 01/10/20 25 025 Active sertraline (Zoloft) 100 MG tablet Take [...] 4 times a day. 240 tablet 11/15/19 Active Additional Information Patient not taking.Reported on [...] nausea or vomiting. 30 tablet 11/15/19 Active Active Problems Problem Noted Date Diagnosed [...] Plan (11/13/2024 10:06 AM EDT): c collar [facility] MRI pending Assessment & Plan (11/12/2024 3:40 PM EDT): - In c collar - [facility] Ast[facility] 11/12/2024 Assessment & Plan (11/13/2024 10:06 AM EDT): - Albuterol PRN Restart home medications as able Assessment & Plan (11/12/2024 3:40 PM EDT): - Albuterol PRN Acute bilateral low back pain without sciatica 0 11/12/2024 Assessment & Plan (11/13/2024 10:06 AM EDT): - pending scans - Improvement in LE tingling. Worse on R than L - [facility] Assessment & Plan (11/12/2024 3:40 PM EDT): - pending scans - Improvement in LE tingling. 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 022 Overview (06/06/2021): Added automatically from request for surgery [id number] Encounters Date Type Department Care Team Description 01/09/2025 11:00 AM EDT Office Visit [facility] [address] [place] [address] Jadiel Montes R, DO Concussion without loss of consciousness, subsequent encounter (Primary Dx); Chronic migraine without aura without status migrainosus, not intractable; Insomnia, unspecified type 01/09/2025 Travel 01/02/2025 Telephone [facility] [address] [place] [address] Jadiel Montes DO HCN - Patient Message; HCN Status Update Call #1; HCN Status Update Call #2 12/20/2024 Telephone [facility] [address] [place] [id number] Jadiel Montes DO HCN - Patient Message 12/14/2024 10:40 AM EDT Office Visit [facility] [address] [place] [id number] Jadiel Montes, Concussion without loss of consciousness, initial encounter (Primary Dx); Acute post-traumatic headache, not intractable 12/14/2024 Travel 11/13/2024 Travel 11/12/2024 2:09 PM EDT - 11/14/2024 12:58 PM EDT Hospital Encounter [facility] In[facility] [address] [place] [address] Mac Marin MD Bernard, Andrew C, MD Vincent, Evan L, MD Rodriguez, Rachel D, MD Acute bilateral low back pain without [...] any time in the past 12 m ont, were you homeless or living in a [place] facility (including now)? No 11/14/2024 Utilities Answer Date Recorded In the past 12 months has th e [employer], gas, oil, or water company threatened to [...] Pulse 60 01/09/2025 10:38 AM EDT Temperature 36.5 C (97.7 F) 11/14/2024 8:39 AM EDT Respiratory Rate 16 11/14/2024 8:39 AM EDT Oxygen Saturation 100% 01/09/2025 10:38 AM EDT Inhaled Oxygen Concentration - - Weight 54.4 kg (120 lb) 01/09/2025 10:38 AM EDT Height 152.4 cm (5') 01/09/2025 10:38 AM EDT Body Mass Index 23.44 01/09/2025 10:38 AM EDT Plan of Treatment Upcoming Encounters Date Type Department Care Team (Late st Contact Info) Description 02/09/2025 11:30 AM EST Office Visit [facility] [address] [place] [address] Jadiel Montes, [address] [place] [address] Health Maintenance Due Date Last Done Comments [facility]-HIV Screening 1999 [facility]-Hepatitis C Screening 1999 [facility]-Infant/Child/Adol SDOH Screenings 1999 [facility]-Varicella Vaccines (2 of 2 - 2-dose childhood series) 12/14/2003 12/04/2000 HPV Vaccines (1 - 3-dose series) 11/14/2014 [facility]-Pneumococcal Vaccine: Pediatrics (0 to 5 Years) and At-Risk Patients (6 to 49 Years) (1 of 2 - PCV) 11/14/2018 03/08/2001, 06/05/2000 [id number] Vaccine (3 - season) 2024 05/02/2020, 04/04/2020 [facility]-Influenza Vaccine (#1) 12/05/202401/15, 12/12/2013, 12/31/2012, Additional history exists [facility]- SDOH Screenings 05/17/2025 [facility]-Adult SDOH Screenings 05/17/2025 11/14/2024 [facility]-Depression Screening 01/09/2026 01/09/2025, 12/05 [facility]-Pap Smear 08/16/2027 08/15/2024 [facility]-DTaP,Tdap,and Td [...] this topic Medical Devices Implanted Type Area Digital Media Designer Device Identifier Shelf Expiration Date Model / Serial / Lot [place] All Suture Qfix 1.8mm - [id number] Implanted:Qty: 4 on 07/19/2021 by Arnold Echevarria MD at [facility] Left: Hip [employer] (Acu[employer])-[id number] 05/17/2024 [id number] [place] All Suture Qfix 1.8mm - [id number] Implanted:Qty: 1 on 07/19/2021 by Arnold Echevarria MD at [facility] Left: Hip [employer] ([employer])-[id number] 04/11/20240157 [place] All Suture Qfix 1.8mm - [id number] Implanted:Qty: 1 on 07/19/2021 by Arnold Echevarria MD at [facility] Left: Hip [employer] ([employer])-[id number] 05/07/20236844 [place] All Suture Qfix 1.8mm - [id number] Implanted:Qty: 7 on 12/02/2023 by Arnold Echevarria MD at [facility] Right: Hip [employer] (Ac[employer])-[id number] 07/07/2026 [id number] Explanted Type Area Digital Media Designer Device Identifier Shelf Expiration Date Model / Serial / Lot [place] All Suture Qfix 1.8mm - [id number] Explanted:Qty: 2 on 07/19/2021 by Arnold Echevarria MD at [facility] Left: Hip [employer] ([employer])-[id number] 05/07/20236844 Procedures Procedure Name Priority Date/Time Associated [...] LAB HEMATOLOGY METHOD 11/13/2024 7:00 AM EDT [facility] Blood Venous blood specimen / Unknown Venipuncture / Unknown 11/13/2024 6:48 AM EDT 11/13/2024 7:00 AM EDT us Katie I Chromy PA LAB BLOOD ORDERABLES Final Resu lt [facility] [address] [place] [address] * (ABNORMAL) Basic metabolic panel (11/13/2024 6:48 AM EDT) Glucose, Plasma 89 74 - 99 mg/dL 11/13/2024 7:24 AM EDT [facility] BUN, Plasma 9 7 - 21 mg/dL 11/13/2024 7:24 AM EDT [facility] Creatinine, Plasma 0.85 0.60 - 1.10 mg/dL 11/13/2024 7:24 AM EDT [facility] BUN/Creatinine Ratio 11 11/13/2024 7:24 AM EDT [facility] Sodium, Plasma 141 136 - 145 mmol/L 11/13/2024 7:24 AM EDT [facility] Potassium, Plasma 3.9 3.6 - 4.9 mmol/L 11/13/2024 7:24 AM EDT [facility] Chloride, Plasma 109(H) 97 - 107 mmol/L 11/13/2024 7:24 AM EDT [facility] CO2, Plasma 25 22 - 29 mmol/L 11/13/2024 7:24 AM EDT [facility] Anion Gap 7 6 - 16 mmol/L 11/13/2024 7:24 AM EDT [facility] Total Calcium, Plasma 8.4(L) 8.9 - 10.2 mg/dL 11/13/2024 7:24 AM EDT [facility] eGFRcr 98.3 mL/min/1.7 3m*2 11/13/2024 7:24 AM EDT [facility] Comment:Reported eGFRcr in m L/min/1.73m2 is based the CKD-EPI 2020 equation that does not use a race coefficient. Blood Venous blood specimen / Unknown Venipuncture / Unknown 11/13/2024 6:48 AM EDT 11/13/2024 6:57 AM EDT us Katie GARDNER LAB BLOOD ORDERABLES Final Resu lt [facility] [address] [place] [address] * MR Cervical Spine wo IV Contrast [...] MD on 11/13/2024 4:17 PM Suha Leach SALES REPRESENTATIVE GRAPHIC ART IMG MRI PROCEDURES Final R esult * (ABNORMAL) OXYCODONE CONFIRMATION,URINE (11/12/2024 8:06 PM EDT) Oxycodone 655(H) <50 ng/mL 11/14/2024 6:20 PM EDT [facility] Oxymorphone <50 <50 ng/mL 11/14/2024 6:20 PM EDT [facility] Oxymorphone Glucuronide 148(H) <50 ng/mL 11/14/2024 6:20 PM EDT [facility] Urine Urine specimen obtained by clean catch procedure / Unknown Non-blood Collection / Unknown 11/12/2024 8:06 PM EDT 11/12/2024 8:18 PM EDT Narrative [facility] - 11/14/2024 6:20 PM EDT Test performed by LC-MS/MS at the [facility]. This test was developed and its performance characteristics determined by [facility]. It has not been cleared or approved by the FDA. The laboratory is regulated under CLIA as qualified to perform high-complexity testing. This test is used for clinical purposes. us Mac Marin MD LAB URINE ORDERABLES Final Result [facility] [address] [place] [address] * (ABNORMAL) Opiates Confirm Urine (11/12/2024 8:06 PM EDT) Codeine <50 <50 ng/mL 11/14/2024 6:20 PM EDT [facility] Codeine Glucuronide <50 <50 ng/mL 11/14/2024 6:20 PM EDT [facility] Desmethyl Tramadol <50 <50 ng/mL 11/14/2024 6:20 PM EDT [facility] EDDP - Methadone Metabolite <50 <50 ng/mL 11/14/2024 6:20 PM EDT [facility] Hydrocodone <50 <50 ng/mL 11/14/2024 6:20 PM EDT [facility] Hydromorphone <50 <50 ng/mL 11/14/2024 6:20 PM EDT [facility] Hydromorphone Glucuronide <50 <50 ng/mL 11/14/2024 6:20 PM EDT [facility] Comment:Metabolite of Hydrom orphone Meperidine <50 <50 ng/mL 11/14/2024 6:20 PM EDT [facility] Methadone <50 <50 ng/mL 11/14/2024 6:20 PM EDT [facility] 6 Monoacetyl morphine <10 <10 ng/mL 11/14/2024 6:20 PM EDT [facility] Morphine 660(H) <50 ng/mL 11/14/2024 6:20 PM EDT [facility] Morphine Glucuronide >1,000(H) <50 ng/mL 11/14/2024 6:20 PM EDT [facility] Comment:Metabolite of Morphi ne Naloxone <50 <50 ng/mL 11/14/2024 6:20 PM EDT [facility] Naloxone Glucuronide <50 <50 ng/mL 11/14/2024 6:20 PM EDT [facility] Comment:Metabolite of Naloxo ne Normeperidine <50 <50 ng/mL 11/14/2024 6:20 PM EDT [facility] Tramadol <50 <50 ng/mL 11/14/2024 6:20 PM EDT [facility] Urine Urine specimen obtained by clean catch procedure / Unknown Non-blood Collection / Unknown 11/12/2024 8:06 PM EDT 11/12/2024 8:18 PM EDT Narrative [facility] - 11/14/2024 6:20 PM EDT Drug analysis is confirmed by LC-MS/MS (LC Tandem Mass Spectrometry) on Urine specimens. This test was developed and its performance characteristics determined by [facility]. It has not been cleared or approved by the FDA. The laboratory is regulated under CLIA as qualified to perform high-complexity testing. This test is used for clinical purposes. Testing is performed at the [facility], [facility] Laboratory. us Mac Marin MD LAB URINE ORDERABLES Final Result [facility] [address] [place] [address] * Drug Abuse Screen, Urine (11/12/2024 8:06 PM EDT) Amphetamine Screen Urine Negative Cutoff: 500 ng/mL 11/12/2024 8:56 PM EDT [facility] Benzodiazepines Screen Urine Negative Cutoff: 200 ng/mL 11/12/2024 8:56 PM EDT [facility] Cannabinoid Screen Urine Negative Cutoff: 50 ng/mL 11/12/2024 8:56 PM EDT [facility] Cocaine Screen Urine Negative Cutoff: 300 ng/mL 11/12/2024 8:56 PM EDT [facility] Barbiturate Screen Urine Negative Cutoff: 200 ng/mL 11/12/2024 8:56 PM EDT [facility] Opiate Screen Urine Presumptive positive. Confirmation by LC-MS/MS to follow. Cutoff: 300 ng/mL 11/12/2024 8:56 PM EDT [facility] Methadone Screen Urine Negative Cutoff: 300 ng/mL 11/12/2024 8:56 PM EDT [facility] Buprenorphine Screen Urine Negative Cutoff: 10 ng/mL 11/12/2024 8:56 PM EDT [facility] Fentanyl Screen Urine Presumptive positive. Confirmation by LC-MS/MS to follow. Cutoff: 1 ng/mL 11/12/2024 8:56 PM EDT [facility] Oxycodone Screen Urine Presumptive positive. Confirmation by LC-MS/MS to follow. Cutoff: 100 ng/mL 11/12/2024 8:56 PM EDT [facility] Urine Urine specimen obtained by clean catch procedure / Unknown Non-blood Collection / Unknown 11/12/2024 8:06 PM EDT 11/12/2024 8:18 PM EDT Mac Marin MD LAB URINE ORDERABLES Final Result Performing Organization Address City/State/[facility] Co de Phone Number [facility] [address] [place] [address] * (ABNORMAL) Fentanyl Urine Confirm (11/12/2024 8:06 PM EDT) Fentanyl 21(H) <1 ng/mL 11/14/2024 6:20 PM EDT [facility] Norfentanyl 83(H) <2 ng/mL 11/14/2024 6:20 PM EDT [facility] Urine Urine specimen obtained by clean catch procedure / Unknown Non-blood Collection / Unknown 11/12/2024 8:06 PM EDT 11/12/2024 8:18 PM EDT Narrative [facility] - 11/14/2024 6:20 PM EDT Drug analysis is confirmed by LC-MS/MS (LC Tandem Mass Spectrometry) on Urine specimens. This test was developed and its performance characteristics determined by [facility]. It has not been cleared or approved by the FDA. The laboratory is regulated under CLIA as qualified to perform high-complexity testing. This test is used for clinical purposes. Testing is performed at the [facility], [facility]. us Mac Marin MD LAB URINE ORDERABLES Final Result [facility] [address] [place] [address] * Urinalysis with reflex microscopic (Culture NOT Included) (11/12/2024 6:15 PM EDT) Color, Urine Yellow LAB URINALYSIS - AUTOMATED METHOD 11/12/2024 6:30 PM EDT [facility] Clarity, Urine Clear LAB URINALYSIS - AUTOMATED METHOD 11/12/2024 6:30 PM EDT [facility] Spec [place], Urine 1.010 1.005 - 1.030 LAB URINALYSIS - AUTOMATED METHOD 11/12/2024 6:30 PM EDT [facility] pH, Urine 6.0 5.0 - 8.0 LAB URINALYSIS - AUTOMATED METHOD 11/12/2024 6:30 PM EDT [facility] Protein, Urine Negative Negative mg/dL LAB URINALYSIS - AUTOMATED METHOD 11/12/2024 6:30 PM EDT [facility] Glucose, Urine Negative Negative mg/dL LAB URINALYSIS - AUTOMATED METHOD 11/12/2024 6:30 PM EDT [facility] Ketones, Urine Negative Negative mg/dL LAB URINALYSIS - AUTOMATED METHOD 11/12/2024 6:30 PM EDT [facility] Blood, Urine Negative Negative LAB URINALYSIS - AUTOMATED METHOD 11/12/2024 6:30 PM EDT [facility] Bilirubin, Urine Negative Negative LAB URINALYSIS - AUTOMATED METHOD 11/12/2024 6:30 PM EDT [facility] Urobilinogen, Urine 0.2 0.2 to 1.0 mg/dL LAB URINALYSIS - AUTOMATED METHOD 11/12/2024 6:30 PM EDT [facility] Leukocytes, Urine Negative Negative LAB URINALYSIS - AUTOMATED METHOD 11/12/2024 6:30 PM EDT [facility] Nitrite, Urine Negative Negative LAB URINALYSIS - AUTOMATED METHOD 11/12/2024 6:30 PM EDT [facility] Urine Urine specimen obtained by clean catch procedure / Unknown Non-blood Collection / Unknown 11/12/2024 6:15 PM EDT 11/12/2024 6:22 PM EDT us Mac Marin MD LAB URINE ORDERABLES Final Result [facility] [address] [place] [address] * CT Bony Pelvis (11/12/2024 3:05 PM [...] Total DLP (Dose-Length Product): 3617.62 mGy.cm (accession [id number]), 3617.62 mGy.cm (accession [id number]), 3617.62 mGy.cm (accession [id number]), 3617.62 mGy.cm (accession [id number]), 3617.62 mGy.cm (accession [id number]), 3617.62 mGy.cm (accession [id number]). Please note: The reported value represents the [...] Total DLP (Dose-Length Product): 3617.62 mGy.cm (accession [id number]),3617.62 mGy.cm (accession [id number]), 3617.62 mGy.cm (accession [id number]),3617.62 mGy.cm (accession [id number]), 3617.62 mGy.cm (accession [id number]),3617.62 mGy.cm (accession [id number]). Please note: The reported valuerepresents the total [...] MD on 11/12/2024 4:01 PM us Terri uG RN IMG CT PROCEDURES Edited Res ult - Final * CT Angio Abdomen Pelvis [...] Total DLP (Dose-Length Product): 3617.62 mGy.cm (accession [id number]), 3617.62 mGy.cm (accession [id number]), 3617.62 mGy.cm (accession [id number]), 3617.62 mGy.cm (accession [id number]), 3617.62 mGy.cm (accession [id number]), 3617.62 mGy.cm (accession [id number]). Please note: The reported value represents the [...] Total DLP (Dose-Length Product): 3617.62 mGy.cm (accession [id number]),3617.62 mGy.cm (accession [id number]), 3617.62 mGy.cm (accession [id number]),3617.62 mGy.cm (accession [id number]), 3617.62 mGy.cm (accession [id number]),3617.62 mGy.cm (accession [id number]). Please note: The reported valuerepresents the total [...] MD on 11/12/2024 4:01 PM Terri Gu RN IMG CT PROCEDURES Edited Res ult - Final * CT Lumbar Spine wo [...] Total DLP (Dose-Length Product): 3617.62 mGy.cm (accession [id number]), 3617.62 mGy.cm (accession [id number]), 3617.62 mGy.cm (accession [id number]), 3617.62 mGy.cm (accession [id number]), 3617.62 mGy.cm (accession [id number]), 3617.62 mGy.cm (accession [id number]). Please note: The reported value represents the [...] Total DLP (Dose-Length Product): 3617.62 mGy.cm (accession [id number]),3617.62 mGy.cm (accession [id number]), 3617.62 mGy.cm (accession [id number]),3617.62 mGy.cm (accession [id number]), 3617.62 mGy.cm (accession [id number]),3617.62 mGy.cm (accession [id number]). Please note: The reported valuerepresents the total [...] on 11/12/2024 4:01 PM us Terri Gu RN IMG CT PROCEDURES Edited Res ult - Final * CT Thoracic Spine wo [...] Total DLP (Dose-Length Product): 3617.62 mGy.cm (accession [id number]), 3617.62 mGy.cm (accession [id number]), 3617.62 mGy.cm (accession [id number]), 3617.62 mGy.cm (accession [id number]), 3617.62 mGy.cm (accession [id number]), 3617.62 mGy.cm (accession [id number]). Please note: The reported value represents the [...] Total DLP (Dose-Length Product): 3617.62 mGy.cm (accession [id number]),3617.62 mGy.cm (accession [id number]), 3617.62 mGy.cm (accession [id number]),3617.62 mGy.cm (accession [id number]), 3617.62 mGy.cm (accession [id number]),3617.62 mGy.cm (accession [id number]). Please note: The reported valuerepresents the total [...] MD on 11/12/2024 4:01 PM Terri Gu RN IMG CT PROCEDURES Edited Res ult - Final * CT Cervical Spine wo [...] Total DLP (Dose-Length Product): 3617.62 mGy.cm (accession [id number]), 3617.62 mGy.cm (accession [id number]), 3617.62 mGy.cm (accession [id number]), 3617.62 mGy.cm (accession [id number]), 3617.62 mGy.cm (accession [id number]), 3617.62 mGy.cm (accession [id number]). Please note: The reported value represents the [...] Total DLP (Dose-Length Product): 3617.62 mGy.cm (accession [id number]),3617.62 mGy.cm (accession [id number]), 3617.62 mGy.cm (accession [id number]),3617.62 mGy.cm (accession [id number]), 3617.62 mGy.cm (accession [id number]),3617.62 mGy.cm (accession [id number]). Please note: The reported valuerepresents the total [...] MD on 11/12/2024 4:01 PM Terri Gu RN IMG CT PROCEDURES Edited Res ult - Final * CT Angio Chest (11/12/2024 [...] Total DLP (Dose-Length Product): 3617.62 mGy.cm (accession [id number]), 3617.62 mGy.cm (accession [id number]), 3617.62 mGy.cm (accession [id number]), 3617.62 mGy.cm (accession [id number]), 3617.62 mGy.cm (accession [id number]), 3617.62 mGy.cm (accession [id number]). Please note: The reported value represents the [...] Total DLP (Dose-Length Product): 3617.62 mGy.cm (accession [id number]),3617.62 mGy.cm (accession [id number]), 3617.62 mGy.cm (accession [id number]),3617.62 mGy.cm (accession [id number]), 3617.62 mGy.cm (accession [id number]),3617.62 mGy.cm (accession [id number]). Please note: The reported valuerepresents the total [...] MD on 11/12/2024 4:01 PM Terri Gu RN IMG CT PROCEDURES Edited Res ult - Final * CT Angio Neck (11/12/2024 [...] Total DLP (Dose-Length Product): 3617.62 mGy.cm (accession [id number]), 3617.62 mGy.cm (accession [id number]), 3617.62 mGy.cm (accession [id number]), 3617.62 mGy.cm (accession [id number]). Please note: The reported value represents the [...] Total DLP (Dose-Length Product): 3617.62 mGy.cm (accession [id number]),3617.62 mGy.cm (accession [id number]), 3617.62 mGy.cm (accession [id number]),3617.62 mGy.cm (accession [id number]). Please note: The reported valuerepresents the total [...] MD on 11/12/2024 3:37 PM Terri Gu RN IMG CT PROCEDURES Final Resu lt * CT Face wo IV Contrast (11/12/2024 [...] Total DLP (Dose-Length Product): 3617.62 mGy.cm (accession [id number]), 3617.62 mGy.cm (accession [id number]), 3617.62 mGy.cm (accession [id number]), 3617.62 mGy.cm (accession [id number]). Please note: The reported value represents the [...] Total DLP (Dose-Length Product): 3617.62 mGy.cm (accession [id number]),3617.62 mGy.cm (accession [id number]), 3617.62 mGy.cm (accession [id number]),3617.62 mGy.cm (accession [id number]). Please note: The reported valuerepresents the total [...] MD on 11/12/2024 3:37 PM Terri Gu RN IMG CT PROCEDURES Final Resu lt * CT Head wo IV Contrast (11/12/2024 [...] Total DLP (Dose-Length Product): 3617.62 mGy.cm (accession [id number]), 3617.62 mGy.cm (accession [id number]), 3617.62 mGy.cm (accession [id number]), 3617.62 mGy.cm (accession [id number]). Please note: The reported value represents the [...] Total DLP (Dose-Length Product): 3617.62 mGy.cm (accession [id number]),3617.62 mGy.cm (accession [id number]), 3617.62 mGy.cm (accession [id number]),3617.62 mGy.cm (accession [id number]). Please note: The reported valuerepresents the total [...] MD on 11/12/2024 3:37 PM Terri Gu RN IMG CT PROCEDURES Final Resu lt * CT Angio Head (11/12/2024 3:05 PM EDT) Anatomical Region Laterality Modality [place] Computed Tomogr aphy Impressions 11/12/2024 [...] Total DLP (Dose-Length Product): 3617.62 mGy.cm (accession [id number]), 3617.62 mGy.cm (accession [id number]), 3617.62 mGy.cm (accession [id number]), 3617.62 mGy.cm (accession [id number]). Please note: The reported value represents the [...] Total DLP (Dose-Length Product): 3617.62 mGy.cm (accession [id number]),3617.62 mGy.cm (accession [id number]), 3617.62 mGy.cm (accession [id number]),3617.62 mGy.cm (accession [id number]). Please note: The reported valuerepresents the total [...] MD on 11/12/2024 3:37 PM Terri Gu RN IMG CT PROCEDURES Final Resu lt * XR Pelvis 1 or 2 Views [...] Per this written report. Drafted by Elias Jonse MD on 11/12/2024 2:53 PM Final report [...] LAB HEMATOLOGY METHOD 11/12/2024 2:44 PM EDT [facility] Bicarbonate, Calculated, Venous 19(L) 22 - 26 mmol/L LAB HEMATOLOGY METHOD 11/12/2024 2:44 PM EDT [facility] Base Excess, Venous -2.4(L) -2.0 - 3.0 mmol/L LAB HEMATOLOGY METHOD 11/12/2024 2:44 PM EDT [facility] Lactate, Venous, Whole Blood 5.2(H) 0.5 - 2.2 mmol/L LAB HEMATOLOGY METHOD 11/12/2024 2:44 PM EDT [facility] Blood Venous blood specimen / Unknown Venipuncture / Unknown 11/12/2024 2:39 PM EDT 11/12/2024 2:43 PM EDT Mac Marin MD LAB BLOOD ORDERABLES Final Result [facility] [address] [place] [address] * Gold Top (11/12/2024 2:39 PM EDT) Only the most recent of2 resultswithin the time period is included. Extra Hold for add-ons 11/12/2024 5:01 PM EDT [facility] Comment:Auto resulted. Blood Venous blood specimen / Unknown 11/12/2024 2:39 PM EDT 11/12/2024 2:44 PM EDT Mac Marin MD LAB BLOOD ORDERABLES Final Result [facility] [address] [place] [address] * Light Green Top (11/12/2024 2:39 PM EDT) Extra Hold for add-ons 11/12/2024 5:01 PM EDT [facility] Comment:Auto resulted. Blood Venous blood specimen / Unknown 11/12/2024 2:39 PM EDT 11/12/2024 2:44 PM EDT Mac Marin MD LAB BLOOD ORDERABLES Final Result [facility] [address] [place] [address] * Ethyl Alcohol Plasma (11/12/2024 2:39 PM EDT) Ethanol Plasma <10 <10 mg/dL 11/12/2024 3:11 PM EDT [facility] Blood Venous blood specimen / Unknown Venipuncture / Unknown 11/12/2024 2:39 PM EDT 11/12/2024 2:43 PM EDT Narrative [facility] - 11/12/2024 3:11 PM EDT Enzymatic Assay: Performed on Valerie Lino. Mac Marin MD LAB BLOOD ORDERABLES Final Result [facility] [address] [place] [address] * TEG Global Hemostasis with Lysis (11/12/2024 2:39 PM EDT) R, Lysis 6.2 4.6 - 9.1 min 11/12/2024 3:53 PM EDT [facility] MA, Rapid, Lysis 61.6 52.0 - 70.0 mm 11/12/2024 3:53 PM EDT [facility] MA, Fibrinogen, Lysis 16.8 15.0 - 32.0 mm 11/12/2024 3:53 PM EDT [facility] LY30 0.9 0.0 - 2.6 % 11/12/2024 3:53 PM EDT [facility] Blood Venous blood specimen / Unknown Venipuncture / Unknown 11/12/2024 2:39 PM EDT 11/12/2024 2:54 PM EDT Mac Marin MD LAB BLOOD ORDERABLES Final Result Performing Organization Address City/[facility]/ZIP Co de Phone Number [facility] [address] [place] [address] * APTT (PTT) (11/12/2024 2:39 PM EDT) aPTT 25 25 - 35 sec 11/12/2024 3:16 PM EDT [facility] Blood Venous blood specimen / Unknown Venipuncture / Unknown 11/12/2024 2:39 PM EDT 11/12/2024 2:43 PM EDT Mac Marin MD LAB BLOOD ORDERABLES Final Result Performing Organization Address [facility] Co de Phone Number [facility] [address] [place] [address] * PT-INR (11/12/2024 2:39 PM EDT) Prothrombin Time 13.8 12.0 - 14.3 sec 11/12/2024 3:15 PM EDT [facility] INR 1.1 0.9 - 1.1 11/12/2024 3:15 PM EDT [facility] Blood Venous blood specimen / Unknown Venipuncture / Unknown 11/12/2024 2:39 PM EDT 11/12/2024 2:43 PM EDT Narrative [facility] - 11/12/2024 3:15 PM EDT OPTIMAL INR RANGES FOR PATIENT ON ORAL ANTICOAGULANT THERAPY Prevention of venous thromboembolism INR 2.0 to 3.0 In patients with heart disease: Atrial fibrillation INR 2.0 to 3.0 Valvular heart disease INR 2.0 to 3.0 Tissue heart valves INR 2.0 to 3.0 Mechanical prosthetic valves INR 2.5 to 3.5 Prevention of recurrent VA INR 2.5 to 3.5 Mac Marin MD LAB BLOOD ORDERABLES Final Result Performing Organization Address City/[facility]/ZIP Co de Phone Number [facility] [address] [place] [address] * (ABNORMAL) CBC w/o diff (11/12/2024 2:39 PM EDT) WBC Count 7.23 3.70 - 10.30 10*3/uL LAB HEMATOLOGY METHOD 11/12/2024 2:46 PM EDT [facility] RBC Count 4.67 3.90 - 5.20 10*6/uL LAB HEMATOLOGY METHOD 11/12/2024 2:46 PM EDT [facility] HGB 14.5 11.2 - 15.7 g/dL LAB HEMATOLOGY METHOD 11/12/2024 2:46 PM EDT [facility] HCT 40.1 34.0 - 45.0 % LAB HEMATOLOGY METHOD 11/12/2024 2:46 PM EDT [facility] Platelet Count 267 155 - 369 10*3/uL LAB HEMATOLOGY METHOD 11/12/2024 2:46 PM EDT [facility] MCV 86 79 - 98 fL LAB HEMATOLOGY METHOD 11/12/2024 2:46 PM EDT [facility] MCH 31.0 26.0 - 32.0 pg LAB HEMATOLOGY METHOD 11/12/2024 2:46 PM EDT [facility] MCHC 36.2(H) 30.7 - 35.5 g/dL LAB HEMATOLOGY METHOD 11/12/2024 2:46 PM EDT [facility] RDW 11.9 11.5 - 14.5 % LAB HEMATOLOGY METHOD 11/12/2024 2:46 PM EDT [facility] MPV 10.3 8.8 - 12.5 fL LAB HEMATOLOGY METHOD 11/12/2024 2:46 PM EDT [facility] nRBC 0.0 <=0.0 per 100 WBCs LAB HEMATOLOGY METHOD 11/12/2024 2:46 PM EDT [facility] Blood Venous blood specimen / Unknown Venipuncture / Unknown 11/12/2024 2:39 PM EDT 11/12/2024 2:43 PM EDT us Mac Marin MD LAB BLOOD ORDERABLES Final Result [facility] [address] [place] [address] * Type and Screen (11/12/2024 2:39 PM [...] ORDERA BLES Final Result BLOOD BANK [address] * Test Qualitative Plasma (11/12/2024 2:39 PM EDT) Test Negative Negative 11/12/2024 3:21 PM EDT [facility] Blood Venous blood specimen / Unknown Venipuncture / Unknown 11/12/2024 2:39 PM EDT 11/12/2024 2:43 PM EDT Narrative [facility] - 11/12/2024 3:21 PM EDT Reference Range: Males and non- females: Negative. Mac Marin MD LAB BLOOD ORDERABLES Final Result [facility] [address] [place] [address] * (ABNORMAL) CMP (11/12/2024 2:39 PM EDT) Glucose, Plasma 110(H) 74 - 99 mg/dL 11/12/2024 3:21 PM EDT [facility] BUN, Plasma 12 7 - 21 mg/dL 11/12/2024 3:21 PM EDT [facility] Creatinine, Plasma 0.80 0.60 - 1.10 mg/dL 11/12/2024 3:21 PM EDT [facility] BUN/Creatinine Ratio 15 11/12/2024 3:21 PM EDT [facility] Sodium, Plasma 138 136 - 145 mmol/L 11/12/2024 3:21 PM EDT [facility] Potassium, Plasma 3.1(L) 3.6 - 4.9 mmol/L 11/12/2024 3:21 PM EDT [facility] Chloride, Plasma 105 97 - 107 mmol/L 11/12/2024 3:21 PM EDT [facility] CO2, Plasma 15(L) 22 - 29 mmol/L 11/12/2024 3:21 PM EDT [facility] Anion Gap 18(H) 6 - 16 mmol/L 11/12/2024 3:21 PM EDT [facility] Total Calcium, Plasma 9.1 8.9 - 10.2 mg/dL 11/12/2024 3:21 PM EDT [facility] Total Protein 6.9 6.3 - 7.9 g/dL 11/12/2024 3:21 PM EDT [facility] Albumin, Plasma 4.2 3.5 - 5.2 g/dL 11/12/2024 3:21 PM EDT [facility] AST, Plasma 24 10 - 35 U/L 11/12/2024 3:21 PM EDT [facility] ALT, Plasma 14 10 - 35 U/L 11/12/2024 3:21 PM EDT [facility] Alkaline Phosphatase, Plasma 59 35 - 104 U/L 11/12/2024 3:21 PM EDT [facility] Total Bilirubin, Plasma 0.2 0.2 - 1.1 mg/dL 11/12/2024 3:21 PM EDT [facility] eGFRcr 105.7 mL/min/1.7 3m*2 11/12/2024 3:21 PM EDT [facility] Comment:Reported eGFRcr in m L/min/1.73m2 is based the CKD-EPI 2020 equation that does not use a race coefficient. Blood Venous blood specimen / Unknown Venipuncture / Unknown 11/12/2024 2:39 PM EDT 11/12/2024 2:43 PM EDT Mac Marin MD LAB BLOOD ORDERABLES Final Result [facility] [address] [place] [address] from Last 3 Months Insurance ANTHEM ANTHEM Member Subscriber Plan / Payer (Ef fective 2022-Present) Name:Kelly GONZALEZ Relation to Subscriber:Child Name:AguilarAlexis Date of :1978 (Home) Address: [address] [address] [place] [address] Payer ID:[id number] (NAIC) Type:Not on file Address: [address] [employer] [address] [place] [id number] [facility] [address] [place] [address] [facility] Advance Directives * Full Code (Latest Code Status on File) Date Activated Date Inactivated Comments 11/12/2024 3:37 PM 11/14/2024 3:09 PM Question Answer Comments I have reviewed the capacity from the link above and, if needed, have updated to appropriate status: Yes Care Teams Cane Stripper Relationship Specialty Start Date End Date Sergey Ramon DO [address] [place] [id number] PCP - General 01/04/25 Nirmala Johnston APRN [address] [place] [address] 11/12/24
--- OUTSIDE RECORDS SUMMARY | 2025-02-06 09:43 | XMS_ITS | Clinical Summary ---
Author Organization [facility] Address [address] [place] [address] Care Team Providers Care Casting Machine Operator Automatic Name Role Phone Swathi Todd APRN Primary Care Provider [phone] Allergies Active Allergy Reactions Criticality Noted Date [...] ANNUAL PHYSICAL 05/28/2023 HEPATITIS C SCREENING 05/28/2023 INFLUENZA VACCINE 11/04/2024 01/15/2022, , 12/31/2012, Additional history exists Annual [...] Reference Lab Report [facility] [address] [place] [address] or [phone] Franko Arevalo M.D., Embroidery Assistant PATIENT NAME LABORATORY NO. [address] CIER[address] GONZALEZ [id number] AGE SEX SSN CLIENT REF # [id number] 24 2000 F [id number] [facility] LAMIN ALFARO REQUESTING Dede [place] [address] SANDER AMBROSIO DATE COLLECTED DATE RECEIVED DATE REPORTED 08/15/2024 08/15/2024 08/16/2024 ThinPrep Pap with [facility] DIAGNOSIS: Negative for intraepithelial lesion or malignancy Multiple factors can influence accuracy of Pap tests; therefore, screening at regular intervals is necessary for early cancer detection. COMMENT: Benign cellular changes associated with reactive/reparativ e changes are present. Professional interpretation rendered by Franko Arevalo M.D., F.C.A.P. at [facility], [place], [address] [place] [address]. SPECIMEN ADEQUACY: SATISFACTORY FOR EVALUATION Transformation zone [...] of chlamydial and gonococcal disease using the [place] system. YIELD IMPROVEMENT ENGINEER: ANIBAL CHRISTINE (ASCP) REVIEWED, DIAGNOSED AND ELECTRONICALLY SIGNED BY: Franko Arevalo M.D., F.C.A.P. CPT CODES: [id number], [id number], [id number], [id number] 08/16/2024 2:04 PM EDT [facility] ThinPrep Vial Cervix uteri structure / Unknown Collection / Unknown 08/15/2024 2:16 PM EDT 08/15/2024 2:16 PM EDT Sander Ambrosio MD PATHOLOGY/CYTOLOGY ORDER FRANSISCO Final Result [facility]
[address] [place] [address], from Last 3 Months or Most Recently Relevant to Health Maintenance Insurance [facility] [address] PPO Member Subscriber Plan / Payer (Ef fective 2022-Present) Name:Raquel Gonzalezsa Juanita Relation to Subscriber:Self Name:Cierra Gonzalez Payer ID:[id number] ([facility]) Type:Not on file Address: [facility] [id number] [place] [facility] PPO Member Subscriber Plan / Payer (Ef fective 2022-Present) Name:Raquel Gonzalezsa Juanita Relation to Subscriber:Child Name:RUBIO SHARP Date of :1978 (Home) Address: [facility] [place] [address] Payer ID:[id number] (NAIC) Type:Not on file Address: [address] [place] [id number] Care Teams Casting Machine Operator Automatic Relationship Specialty Start Date End Date Swathi Todd, DAVE [address] [place] [address] PCP - General Nurse Practitioner 07/21/24
== END 2025-02-02 23:59 ==
LOC: LAB.DROPOF 02-06 09:40
PROVIDERS: PCP Internal Medicine; Visit Provider Internal Medicine
DX: R50.9 Fever, unspecified (principal); R05.9 Cough, unspecified
CPT/HCPCS: 87631